=== PATIENT | male | born 1965 | race Caucasian/White ===

== ENCOUNTER 2016-12-21 09:22 | Emergency (ER) | payer MEDICAID ==
[2016-12-21 10:20] LABS: BASOPHILS 0.5 % (0-2); EOSINOPHILS 1.2 % (0-7); HEMATOCRIT 42.8 % (42.0-54.0); IMMATURE GRANULOCYTES 0.3 % (0-5); LYMPHOCYTES 28.8 % (15-50); MCH 33.3 pg (26.0-34.0); MCV 95.1 fL (80.0-100.0); MEAN PLATELET VOLUME 9.4 fL (7.4-10.4); MONOCYTES 8.6 % (2-11); NEUTROPHILS 60.6 % (40-80); PLATELET COUNT 205 10x3/uL (130-400); RDW 14.5 % (11.5-14.5); WBC 6.1 10x3/uL (4.8-10.8)
[2016-12-21 10:23] LABS: APPEARANCE CLEAR (CLEAR); BILIRUBIN NEGATIVE (NEGATIVE); COLOR DK YELLOW (YELLOW); GLUCOSE NEGATIVE (NEGATIVE); KETONE NEGATIVE (NEGATIVE); LEUKOCYTE ESTERASE NEGATIVE (NEGATIVE); NITRITE NEGATIVE (NEGATIVE); PROTEIN NEGATIVE (NEGATIVE); SPECIFIC GRAVITY 1.015 (1.005-1.020); UROBILINOGEN NORMAL (NORMAL)
[2016-12-21 10:35] LABS: ALBUMIN 3.3 g/dL (3.4-5.0); ALKALINE PHOSPHATASE 118 U/L (46-116); ALT (SGPT) 26 U/L (10-68); AMYLASE - SERUM 53 U/L (25-115); CALC OSMOLALITY 276 mosm/kg (275-300); CALCIUM 8.2 mg/dL (8.5-10.1); CARBON DIOXIDE 23.4 mmol/L (21.0-32.0); CHLORIDE - SERUM 105 mmol/L (98-107); GLUCOSE 84 mg/dL (74-106); LIPASE 157 U/L (73-393); POTASSIUM - SERUM 4.1 mmol/L (3.5-5.1); PROTEIN - SERUM 6.8 g/dL (6.4-8.2); SODIUM 139 mmol/L (136-145); UREA NITROGEN 13 mg/dL (7-18); eGFR NON AFRICAN AMERICAN 84 mL/min (90-120)
== END 2016-12-21 14:09 | disposition home or self-care (01) ==
LOC: D.ER 09:22
PROVIDERS: Family Medicine
DX: K57.92 Diverticulitis of intestine, part unspecified, without perforation or abscess without bleeding (principal); F17.200 Nicotine dependence, unspecified, uncomplicated

== ENCOUNTER → 2017-03-04 08:11 | Outpatient (CLI) | payer MEDICAID | END | disposition home or self-care (01) | LOC: D.US 08:00 | DX: R10.11 Right upper quadrant pain (principal); R10.13 Epigastric pain ==

== ENCOUNTER 2017-04-21 09:45 | Emergency (ER) | payer MEDICAID ==
[2017-04-21 10:32] LABS: APPEARANCE CLEAR (CLEAR); BILIRUBIN NEGATIVE (NEGATIVE); COLOR YELLOW (YELLOW); GLUCOSE NEGATIVE (NEGATIVE); KETONE NEGATIVE (NEGATIVE); NITRITE NEGATIVE (NEGATIVE); PROTEIN NEGATIVE (NEGATIVE); UROBILINOGEN NORMAL (NORMAL)
[2017-04-21 10:47] LABS: BASOPHILS 0.2 % (0-2); EOSINOPHILS 3.9 % (0-7); HEMATOCRIT 43.2 % (42.0-54.0); HEMOGLOBIN 14.8 g/dL (13.5-17.5); IMMATURE GRANULOCYTES 0.4 % (0-5); LYMPHOCYTES 43.4 % (15-50); MCHC 34.3 g/dL (31.0-37.0); MCV 99.3 fL (80.0-100.0); MONOCYTES 8.6 % (2-11); NEUTROPHILS 43.5 % (40-80); PLATELET COUNT 175 10x3/uL (130-400); RBC 4.35 10x6/uL (4.20-6.10); RDW 13.5 % (11.5-14.5); WBC 4.9 10x3/uL (4.8-10.8)
[2017-04-21 10:51] LABS: ALBUMIN 3.5 g/dL (3.4-5.0); ALKALINE PHOSPHATASE 112 U/L (46-116); ALT (SGPT) 34 U/L (10-68); BILIRUBIN - TOTAL 0.18 mg/dL (0.2-1.3); CALC OSMOLALITY 283 mosm/kg (275-300); CALCIUM 8.6 mg/dL (8.5-10.1); CARBON DIOXIDE 22.1 mmol/L (21.0-32.0); CHLORIDE - SERUM 108 mmol/L (98-107); CREATININE - SERUM 1.1 mg/dL (0.6-1.3); GLUCOSE 107 mg/dL (74-106); LIPASE 183 U/L (73-393); PROTEIN - SERUM 7.2 g/dL (6.4-8.2); SODIUM 143 mmol/L (136-145); UREA NITROGEN 11 mg/dL (7-18); eGFR NON AFRICAN AMERICAN 75 mL/min (90-120)
== END 2017-04-21 16:05 | disposition home or self-care (01) ==
LOC: D.ER 09:45
PROVIDERS: Emergency Medicine
DX: R10.9 Unspecified abdominal pain (principal)

== ENCOUNTER → 2017-06-23 08:09 | Outpatient (CLI) | payer MEDICAID | END | disposition home or self-care (01) | LOC: D.RT 08:09 | DX: R06.02 Shortness of breath (principal) ==

== ENCOUNTER → 2017-11-07 18:54 | Outpatient (CLI) | payer MEDICAID ==
[~2017-11-07 18:54] MED LIST: ANORO ELLIPTA1 EACH INH; NORCO 7.5/325 T1 TA1 PO
== END | disposition home or self-care (01) ==
LOC: D.LABREF 18:54
DX: M17.11 Unilateral primary osteoarthritis, right knee (principal); Z11.8 Encounter for screening for other infectious and parasitic diseases

== ENCOUNTER → 2017-11-08 15:55 | Outpatient (CLI) | payer MEDICAID | END | disposition home or self-care (01) | LOC: D.MRI 15:55 | DX: S83.222A Peripheral tear of medial meniscus, current injury, left knee, initial encounter (principal) ==

== ENCOUNTER → 2017-11-15 16:48 | Outpatient (CLI) | payer MEDICAID ==
[2017-11-15 17:17] LABS: BASOPHILS 0.1 % (0-2); EOSINOPHILS 0.8 % (0-7); HEMATOCRIT 41.3 % (42.0-54.0); HEMOGLOBIN 14.7 g/dL (13.5-17.5); IMMATURE GRANULOCYTES 0.5 % (0-5); LYMPHOCYTES 25.1 % (15-50); MCH 35.8 pg (26.0-34.0); MCHC 35.6 g/dL (31.0-37.0); MCV 100.5 fL (80.0-100.0); MEAN PLATELET VOLUME 9.7 fL (7.4-10.4); MONOCYTES 8.1 % (2-11); NEUTROPHILS 65.4 % (40-80); PLATELET COUNT 180 10x3/uL (130-400); RBC 4.11 10x6/uL (4.20-6.10); RDW 14.1 % (11.5-14.5); WBC 9.5 10x3/uL (4.8-10.8)
[2017-11-15 19:17] LABS: ERYTHROCYTE SEDIMENTATION RATE 9 mm/hr (0-20)
== END | disposition home or self-care (01) ==
LOC: D.LAB 16:48
PROVIDERS: Orthopaedic Surgery
DX: M25.561 Pain in right knee (principal); R22.41 Localized swelling, mass and lump, right lower limb

== ENCOUNTER 2018-01-11 10:00 | Inpatient (IN) | payer MEDICAID ==
[~2018-01-11] VITALS: Ht 180.3 cm; Wt 97.7 kg
[2018-01-11 11:27] LABS: BASOPHILS 0.5 % (0-2); EOSINOPHILS 0.5 % (0-7); HEMOGLOBIN 15.2 g/dL (13.5-17.5); IMMATURE GRANULOCYTES 0.2 % (0-5); MCH 36.5 pg (26.0-34.0); MCHC 35.3 g/dL (31.0-37.0); MCV 103.1 fL (80.0-100.0); MEAN PLATELET VOLUME 9.6 fL (7.4-10.4); MONOCYTES 8.7 % (2-11); NEUTROPHILS 54.1 % (40-80); PLATELET COUNT 204 10x3/uL (130-400); RBC 4.17 10x6/uL (4.20-6.10); RDW 14.9 % (11.5-14.5); WBC 5.5 10x3/uL (4.8-10.8)
[2018-01-11 11:31] LABS: APPEARANCE CLEAR (CLEAR); COLOR DK YELLOW (YELLOW)
[2018-01-11 11:32] LABS: BILIRUBIN NEGATIVE (NEGATIVE); GLUCOSE NEGATIVE (NEGATIVE); KETONE NEGATIVE (NEGATIVE); NITRITE NEGATIVE (NEGATIVE); PROTEIN NEGATIVE (NEGATIVE); UROBILINOGEN NORMAL (NORMAL)
[2018-01-11 11:40] LABS: APTT 40.7 SECONDS (22.8-39.4); INR 1.19 (0.85-1.17); PROTIME 14.7 SECONDS (11.6-15.0)
[2018-01-11 11:50] LABS: ANION GAP 11.8 mmol/L (8-16); CARBON DIOXIDE 27.8 mmol/L (21.0-32.0); CREATININE - SERUM 1.2 mg/dL (0.6-1.3); POTASSIUM - SERUM 3.6 mmol/L (3.5-5.1)
[2018-01-18 06:45] VITALS: BP 151/100
[2018-01-18 07:05] VITALS: BP 151/100
[2018-01-18 17:15] VITALS: BP 130/82
[2018-01-18 18:38] LABS: BASOPHILS 0.1 % (0-2); EOSINOPHILS 0 % (0-7); HEMATOCRIT 39.7 % (42.0-54.0); HEMOGLOBIN 13.6 g/dL (13.5-17.5); IMMATURE GRANULOCYTES 0.4 % (0-5); MCH 36.3 pg (26.0-34.0); MCHC 34.3 g/dL (31.0-37.0); MCV 105.9 fL (80.0-100.0); MONOCYTES 2.2 % (2-11); NEUTROPHILS 93.3 % (40-80); RBC 3.75 10x6/uL (4.20-6.10); RDW 15.1 % (11.5-14.5); WBC 9.9 10x3/uL (4.8-10.8)
[2018-01-18 18:53] LABS: ANION GAP 11.3 mmol/L (8-16); CREATININE - SERUM 1.4 mg/dL (0.6-1.3); POTASSIUM - SERUM 4.3 mmol/L (3.5-5.1)
[2018-01-18 19:12] LABS: PLATELET COUNT 144 10x3/uL (130-400)
[2018-01-18 19:50] VITALS: BP 114/73; Ht 180.3 cm; Wt 97.7 kg
[2018-01-18 22:51] VITALS: BP 121/77
[2018-01-19 06:18] VITALS: BP 124/83
[2018-01-19 08:00] VITALS: BP 123/66
[2018-01-19 12:00] VITALS: BP 131/75
[2018-01-19 21:45] VITALS: BP 130/70
[2018-01-20 05:09] VITALS: BP 141/81
[2018-01-20 08:14] VITALS: BP 140/86
[2018-01-20 11:56] VITALS: BP 144/80
[2018-01-20 20:00] VITALS: BP 114/74
[2018-01-21 04:00] VITALS: BP 114/62
[2018-01-21 09:25] VITALS: BP 124/58
[2018-01-21] MEDS ORDERED: ASPIRIN325 MG PO (09:35)
== END 2018-01-21 19:03 | disposition home health service (06) | DRG 470 ==
LOC: D.MS 01-18 05:00 → D.SDCHOLD 01-18 05:00 → D.MS 01-18 16:53
PROVIDERS: Orthopaedic Surgery
PROC: 0QPG04Z Removal of Internal Fixation Device from Right Tibia, Open Approach (ICD-10-PCS; 2018-01-18)
PROC: 0SRC0J9 Replacement of Right Knee Joint with Synthetic Substitute, Cemented, Open Approach (ICD-10-PCS; principal; 2018-01-18 12:30)
DX: M17.11 Unilateral primary osteoarthritis, right knee (principal); J44.9 Chronic obstructive pulmonary disease, unspecified; M71.22 Synovial cyst of popliteal space [Baker], left knee; S83.242A Other tear of medial meniscus, current injury, left knee, initial encounter; F17.200 Nicotine dependence, unspecified, uncomplicated

== ENCOUNTER → 2018-01-28 15:33 | Outpatient (CLI) | payer MEDICAID ==
[~2018-01-28 15:33] MED LIST changes: +ASPIRIN325 MG PO
[2018-01-28 16:21] LABS: APPEARANCE CLEAR (CLEAR); COLOR DK YELLOW (YELLOW)
[2018-01-28 16:22] LABS: BILIRUBIN NEGATIVE (NEGATIVE); GLUCOSE NEGATIVE (NEGATIVE); KETONE NEGATIVE (NEGATIVE); NITRITE NEGATIVE (NEGATIVE); PROTEIN NEGATIVE (NEGATIVE); SPECIFIC GRAVITY 1.025 (1.005-1.020); UROBILINOGEN NORMAL (NORMAL)
== END | disposition home or self-care (01) ==
LOC: D.LABREF 15:33
PROVIDERS: Orthopaedic Surgery
DX: N39.0 Urinary tract infection, site not specified (principal); Z47.1 Aftercare following joint replacement surgery; R33.9 Retention of urine, unspecified; J44.9 Chronic obstructive pulmonary disease, unspecified

== ENCOUNTER 2018-04-27 09:00 | Inpatient (IN) | payer MEDICAID ==
[~2018-04-27] VITALS: Ht 180.3 cm; Wt 87.6 kg
[2018-04-27] VITALS (10 sets, daily range): BP systolic 118–145; BP diastolic 73–97; BMI 27.0
[2018-04-27 10:21] LABS: APTT 29.6 SECONDS (22.8-39.4); INR 0.91 (0.85-1.17); PROTIME 11.7 SECONDS (11.6-15.0)
[2018-04-27 10:25] LABS: HEMATOCRIT 43.7 % (42.0-54.0); HEMOGLOBIN 15.4 g/dL (13.5-17.5); LYMPHOCYTES 9.7 % (15-50); MCH 35.8 pg (26.0-34.0); MCHC 35.2 g/dL (31.0-37.0); MCV 101.6 fL (80.0-100.0); NEUTROPHILS 83.8 % (40-80); RDW 18.2 % (11.5-14.5); WBC 5.1 10x3/uL (4.8-10.8)
[2018-04-27 10:26] LABS: ALKALINE PHOSPHATASE 148 U/L (46-116); ALT (SGPT) 40 U/L (10-68); AMYLASE - SERUM 48 U/L (25-115); BILIRUBIN - DIRECT 0.12 mg/dL (0.00-0.30); BILIRUBIN - INDIRECT 0.31 mg/dL (0.00-1.00); BILIRUBIN - TOTAL 0.43 mg/dL (0.2-1.3); CALC OSMOLALITY 273 mosm/kg (275-300); CALCIUM 9.3 mg/dL (8.5-10.1); CARBON DIOXIDE 24.5 mmol/L (21.0-32.0); CHLORIDE - SERUM 101 mmol/L (98-107); CREATININE - SERUM 0.9 mg/dL (0.6-1.3); GLUCOSE 107 mg/dL (74-106); LIPASE 134 U/L (73-393); PROTEIN - SERUM 7.3 g/dL (6.4-8.2); SODIUM 138 mmol/L (136-145); TROPONIN-I < 0.017 ng/mL (0.000-0.060); UREA NITROGEN 7 mg/dL (7-18); eGFR NON AFRICAN AMERICAN > 90 mL/min (90-120)
[2018-04-27 10:27] LABS: PLATELET COUNT 84 10x3/uL (130-400); POTASSIUM - SERUM 2.8 mmol/L (3.5-5.1)
[2018-04-27 10:41] LABS: PLATELET ESTIMATE DECREASED
[2018-04-27 11:05] LABS: APPEARANCE HAZY (CLEAR); BILIRUBIN NEGATIVE (NEGATIVE); COLOR YELLOW (YELLOW); GLUCOSE NEGATIVE (NEGATIVE); KETONE NEGATIVE (NEGATIVE); NITRITE NEGATIVE (NEGATIVE); PROTEIN NEGATIVE (NEGATIVE); SPECIFIC GRAVITY 1.015 (1.005-1.020); UROBILINOGEN NORMAL (NORMAL)
--- NOTE | 2018-04-27 13:00 | MORECARE ---
CASE MANAGEMENT DISCHARGE SUMMARY PATIENT: BEBETO LINN UNIT: [id number] ADM DATE: 04/27/18 AGE: 52 : 69 SEX: M ROOM/BED: D.E07 AUTHOR: SANDRADOC PHYSICIAN: REFERRING PHYSICIAN: MANNY SUAZO MD DATE OF SERVICE: 04/27/18 Discharge Plan Patient Name: BEBETO LINN Facility: [facility]:[place] : 1965 Planned Disposition: Anticipated Discharge Date: 05/01/18 Discharge Date: Expected LOS: 4 Initial Reviewer: [email or web address] Initial Review Date: 04/27/2018 Generated: 04/27/18 2:00 pm DCP- Discharge Planning Updated by [email or web address]: Rhiannon Krishnamurthy on 04/27/18 12:[address] Patient Name: BEBETO LINN Admission Status: ER Accout number: [id number] Admission Date: 04-27-2018 : 1965 Admission Diagnosis: Attending: MANNY SUAZO Current LOS: 1 Anticipated DC Date: 05-01-2018 Planned Disposition: Primary Insurance: MEDICAID [place] Discharge Planning Comments: CM met with patient to complete initial dc planning assessment. CM educated patient on the CM role and verbal consent given by patient to complete assessment. Patient lives at home alone. He reports he is independent in his ADL's and his IADL's.. At discharge patient plans to return home if able and feels this is a safe discharge. CM discussed availability of home health, rehab services, and medical equipment. Patient denied known discharge needs at this time. CM will continue to follow and will assist as needed with dc plans/needs. Prosthetic Lab Technician: Rhiannon Krishnamurthy RN, CCM Appended by Rhiannon Krishnamurthy on 04/27/2018 13:00 NATIONAL PARK RANGER: Patient also reports he drinks 1 pint of whisky a day since February. He stated his last drink was last night at 1930. He reports he is going to stop drinking. DCPIA - Discharge Planning Initial Assessment Updated by [email or web address]: Rhiannon Krishnamurthy on 04/27/18 12:56 pm * Is the patient Alert and Oriented? Yes * PCP Dr. Aleman * Pharmacy [facility] on [address] * Preadmission Environment Home Alone * ADLs Independent * Equipment Oxygen * List name and contact numbers for known caregivers / representatives who currently or will assist patient after discharge: Ross Lynn - [place] - [phone] * Verbal permission to speak to the caregivers and representatives has been obtained from the patient. Yes * Community resources currently utilized None * Additional services required to return to the preadmission environment? No * Can the patient safely return to the preadmission environment? Yes * Has this patient been hospitalized within the prior 30 days at any hospital? No Patient Name: BEBETO LINN Page [id number] at 1300 All edits/amendments must be made on the electronic document DICTATION DATE: 04/27/18 1300 CAR DESIGNER: JAYSON 04/27/18 1300 RPT#: [id number] DC DATE: STATUS: ADM IN [facility] [address] [place] [address] END OF REPORT
--- NOTE | 2018-04-27 14:55 | NUR ---
PT ADMITTED TO ICU AT 1434. PATIENT ATTACHED TO CARDIAC ICU MONITORING. HE CAME VIA WHEELCHAIR AND WAS ACCOMPANIED BY ER STAFF. CHART REVIEWED. VSS, WILL MONITOR CLOSEY
--- NOTE | 2018-04-27 16:00 | NUR ---
PT BEDSIDE COMMODE EMPTIED AND DOCUMENTED IN I&O FLOWSHEET. VSS, WILL CONTINUE TO MONITOR CLOSELY
--- NOTE | 2018-04-27 18:35 | NUR ---
PT GIVEN ICE CHIPS PER REQUEST. STILL C/O OF ABDOMINAL PAIN. REINSTRUCTED ON HOW TO USE CARDIOVASCULAR SURGICAL TECH PUMP. PT RETURNED DEMONSTRATION. VSS, WILL CONTINUE TO MONITOR CLOSELY.
--- NOTE | 2018-04-27 19:00 | NUR ---
REPORT REC'D, ASSUMED PT'S CARE. ASSESSMENT COMPLETED. SEE FLOWSHEETS FOR ALL FINDINGS. PT A/O X4, C/O PAIN TO ABD 10/10 ON SCALE. MORGUE LIBRARIAN PUMP ON HAND. PT VERBALIZED JUST USED. ST ON CM WITH HR AT 110BMP. B/L PIV INTACT,CLEAN AND DRY INFUSING IV FLUIDS PER ORDER VIA PUMP. PPP. PT REPOSITIONED SELF FOR COMFORT. CALL LIGHT IN REACH. WILL CONT TO MONITOR.
--- NOTE | 2018-04-27 21:00 | NUR ---
PT C/O NAUSEA. ZOFRAN IVP GIVEN PER ORDER. REPOSIIONED SELF IN BED FOR COMFORT. WILL CONT TO MONITOR.
--- NOTE | 2018-04-27 23:00 | NUR ---
REASSESSMENT COMPLETED PER FLOWSHEETS. PT CONT TO C/O ABD PAIN 5/10, BROODMARE FOREMAN PUSH ON USE. VSS. CALL LIGHT IN REACH. CPOC.
[2018-04-28] VITALS (13 sets, daily range): BP systolic 101–135; BP diastolic 61–90; Ht 180.3 cm; Wt 87.6 kg
[2018-04-28 02:33] LABS: BASOPHILS 0.1 % (0-2); EOSINOPHILS 0 % (0-7); HEMATOCRIT 40.2 % (42.0-54.0); HEMOGLOBIN 13.7 g/dL (13.5-17.5); IMMATURE GRANULOCYTES 0.2 % (0-5); LYMPHOCYTES 8.8 % (15-50); MCH 35.6 pg (26.0-34.0); MCHC 34.1 g/dL (31.0-37.0); MONOCYTES 6.3 % (2-11); NEUTROPHILS 84.6 % (40-80); PLATELET COUNT 97 10x3/uL (130-400); RBC 3.85 10x6/uL (4.20-6.10); RDW 18.1 % (11.5-14.5)
[2018-04-28 02:47] LABS: MCV 104.4 fL (80.0-100.0); WBC 12.5 10x3/uL (4.8-10.8)
[2018-04-28 02:54] LABS: ALBUMIN 2.4 g/dL (3.4-5.0); ALKALINE PHOSPHATASE 105 U/L (46-116); BILIRUBIN - TOTAL 0.73 mg/dL (0.2-1.3); CALCIUM 7.7 mg/dL (8.5-10.1); CARBON DIOXIDE 24.5 mmol/L (21.0-32.0); CHLORIDE - SERUM 100 mmol/L (98-107); GLUCOSE 80 mg/dL (74-106); SODIUM 135 mmol/L (136-145); eGFR NON AFRICAN AMERICAN 84 mL/min (90-120)
[2018-04-28 02:57] LABS: ALT (SGPT) 28 U/L (10-68); CALC OSMOLALITY 265 mosm/kg (275-300); POTASSIUM - SERUM 4.4 mmol/L (3.5-5.1); UREA NITROGEN 5 mg/dL (7-18)
--- NOTE | 2018-04-28 11:53 | NUR ---
PT RECIEVED TO FLOOR. PT AAO X3 TO PERSON, PLACE, AND TIME. DENIES NEEDS AT THIS TIME. NOSIGNS OF DISTRESS NOTED.
--- NOTE | 2018-04-28 14:19 | NUR ---
REPORT CALLED TO FLOOR NURSE.
--- NOTE | 2018-04-28 19:15 | NUR ---
RECEIVED CARE FROM DAY NURSE. LYING IN BED ON SIDE. REPORTS NO NEEDS AT THIS TIME. IV INFUSING TO RIGHT AC. CALL LIGHT AT SIDE.
--- NOTE | 2018-04-28 20:59 | NUR ---
SATING 78% ON ROOM AIR. PT PLACED ON 2L O2. SATS CHIGN 86%. UPON QUESTIONING PT REPORTS HE HAS COPD AND USES 3L O2 AT NIGHT WHEN HE IS HOME. O2 RAISED TO 3L AND SATS CHING TO 90%. WILL CONTINUE TO MONITOR.
--- NOTE | 2018-04-29 00:24 | NUR ---
IV IN RIGHT AC AND LEFT FA LEAKING AT INSERTION SITE. DC'D WITH TIP INTACT. RESITED TO RIGHT FA. 22 GAUGE X2 STICKS WITH GOOD BLOOD RETURN NOTED.
[2018-04-29 00:29] VITALS: BP 112/70
--- NOTE | 2018-04-29 03:06 | NUR ---
DISCONNECTED TO AMBULATE
[2018-04-29 05:26] VITALS: BP 97/62
[2018-04-29 06:45] LABS: BASOPHILS 0.1 % (0-2); EOSINOPHILS 0.1 % (0-7); HEMATOCRIT 36.7 % (42.0-54.0); HEMOGLOBIN 12.4 g/dL (13.5-17.5); IMMATURE GRANULOCYTES 0.7 % (0-5); LYMPHOCYTES 5.7 % (15-50); MCH 34.8 pg (26.0-34.0); MCHC 33.8 g/dL (31.0-37.0); MCV 103.1 fL (80.0-100.0); MEAN PLATELET VOLUME 11.5 fL (7.4-10.4); MONOCYTES 3.8 % (2-11); NEUTROPHILS 89.6 % (40-80); PLATELET COUNT 110 10x3/uL (130-400); RBC 3.56 10x6/uL (4.20-6.10); RDW 17.7 % (11.5-14.5); WBC 11.7 10x3/uL (4.8-10.8)
[2018-04-29 07:10] LABS: CALCIUM 7.6 mg/dL (8.5-10.1); CARBON DIOXIDE 25.3 mmol/L (21.0-32.0); CHLORIDE - SERUM 99 mmol/L (98-107); CREATININE - SERUM 0.8 mg/dL (0.6-1.3); POTASSIUM - SERUM 3.8 mmol/L (3.5-5.1); SODIUM 134 mmol/L (136-145); eGFR NON AFRICAN AMERICAN > 90 mL/min (90-120)
[2018-04-29 07:11] LABS: CALC OSMOLALITY 264 mosm/kg (275-300); GLUCOSE 61 mg/dL (74-106); UREA NITROGEN 10 mg/dL (7-18)
--- NOTE | 2018-04-29 07:45 | NUR ---
PATIENT IN BED WITH IV INTACT. NO COMPLAINTS OR SIGNS OF DISTRESS. CALL LIGHT WITHIN REACH.
[2018-04-29 09:09] VITALS: BP 106/73
--- NOTE | 2018-04-29 09:41 | NUR ---
PT LAYING IN BED RESETING THIS AM. RESPIRATIONS EVEN AND UNLABORED, NO S/S OF DISTRESS NOTED. PT WAITING FOR DOCTOR, STATES THAT HE WISHES TO GO HOME. INFORMED PT THAT HE WOULD HAVE TO SPEAK WITH THE DOCTOR. DENIES NEEDS AT THIS TIME. BED LOW AND LOCKED, SR UP X2, CL IN EASY REACH.
--- NOTE | 2018-04-29 12:47 | NUR ---
CALLED INTO ROOM BY PT, STATED THAT HE HAD SOME QUESTIONS REGARDING WHAT KIND OF FOOD HE WAS ALLOWED TO EAT. REFERRED TO DR. SUAZO'S ORDER OF CLEAR LIQUID DIET. PT GOT ANGRY AND STARTED YELLING SAYING HE WAS GOING HOME IF HE COULDN'T GET ANY "REAL FOOD". DR. SUAZO CALLED AND INFORMED OF THIS, DR. SUAZO STATED THAT HE CAN HAVE CLEAR LIQUIDS AND IF HE TOLERATES THE CLEAR LIQUIDS HE WILL ADVANCE HIS DIET AND SEND HIM HOME. PT VERBALIZES UNDERSTANDING. UNHOOKED FROM IV AND ALLOWED TO WALK AROUND FLOOR FOR A BIT PER REQUEST. CL IN EASY REACH.
[2018-04-29 13:15] VITALS: BP 148/61
--- NOTE | 2018-04-29 14:43 | NUR ---
PT TOLERATED LUNCH WELL, NO NAUSEA OR VOMITING NOTED OR REPORTED. WILL ADVANCE DIET TOLERATED ORDERED BY DR. SUAZO. CL IN EASY REACH, DENIES FURTHER NEEDS.
[2018-04-29 20:53] VITALS: BP 114/68
[2018-04-30 00:50] VITALS: BP 118/71
[2018-04-30 05:02] VITALS: BP 111/69
[2018-04-30 07:33] LABS: BASOPHILS 0.1 % (0-2); EOSINOPHILS 0 % (0-7); HEMATOCRIT 33.4 % (42.0-54.0); HEMOGLOBIN 11.7 g/dL (13.5-17.5); IMMATURE GRANULOCYTES 0.3 % (0-5); LYMPHOCYTES 3.6 % (15-50); MCH 35.3 pg (26.0-34.0); MONOCYTES 7.4 % (2-11); NEUTROPHILS 88.6 % (40-80); RBC 3.31 10x6/uL (4.20-6.10); RDW 17.6 % (11.5-14.5); WBC 12.4 10x3/uL (4.8-10.8)
[2018-04-30 07:36] LABS: MCV 100.9 fL (80.0-100.0); PLATELET COUNT 135 10x3/uL (130-400)
[2018-04-30 07:47] LABS: CALC OSMOLALITY 264 mosm/kg (275-300); CALCIUM 7.5 mg/dL (8.5-10.1); CARBON DIOXIDE 24.8 mmol/L (21.0-32.0); CHLORIDE - SERUM 99 mmol/L (98-107); CREATININE - SERUM 0.9 mg/dL (0.6-1.3); POTASSIUM - SERUM 3.3 mmol/L (3.5-5.1); SODIUM 133 mmol/L (136-145); UREA NITROGEN 10 mg/dL (7-18); eGFR NON AFRICAN AMERICAN > 90 mL/min (90-120)
[2018-04-30 07:51] LABS: GLUCOSE 97 mg/dL (74-106)
[2018-04-30 08:00] VITALS: BP 109/79
--- NOTE | 2018-04-30 08:21 | NUR ---
PT SITTING UP IN BED HOLDING HIS OPERATOR LIGHTS BUTTON THIS AM. PT WAS NOT CONNECTED TO THE IV SO IT WASN'T DOING ANY GOOD. FLUSHED IV, LEAKING AND INFILTRATION NOTED. IV REMOVED TIP INTACT. PT NOT HAPPY THAT IT HAS TO BE RESITED BUT EXPLAINED THAT THIS WAS HOW HE WAS GETTING HIS PAIN MEDICATION. VOICED THAT HE WISHED TO WALK AROUND BEFORE I RESITED HIS IV. PT ALLOWED TO WALK AROUND UNIT. DENIES FURTHER NEEDS. BED LOW AND LOCKED, SR UP X2, CL IN EASY REACH. WILL CONTINUE TO MONITOR THROUGHOUT THE DAY.
--- NOTE | 2018-04-30 10:03 | NUR ---
PATIENT IV RESTARTED IN RIGHT WRIST X 1 STICK. 22G. PATIENT TOLERATED WITH SMALL AMOUNT OF PAIN. IVF RESTARTED. NOTIFIED MUCKER OPERATOR PATIENT WANTS FREIGHT FORWARDER RESTARTED.
[2018-04-30 12:00] VITALS: BP 137/68
--- NOTE | 2018-04-30 12:13 | NUR ---
PT REPORTS THAT HE IS NOT FEELING WELL AT ALL, TEMPERATURE TAKEN CAME BACK AT 102.2. DR. SUAZO CALLED AND INFORMED, STATED THAT HE WOULD GET HIM SOMETHING ORDERED. CL IN EASY REACH.
--- NOTE | 2018-04-30 17:00 | NUR ---
PT LAYING IN BED RESTING WITH EYES OPEN. HAD AN EPISODE OF PAIN TO HIS ABDOMEN. NORCO 10 GIVEN PER EMAR ORDER TO HELP WITH THIS. PT WAS ALSO RUNNING A 102.2 TYLENOL GIVEN PER EMAR ORDER TO HELP. PT VOICES THAT HE FEELS A LOT BETTER THEN THIS AM. DENIES FURTHER NEEDS. CL IN EASY REACH.
--- NOTE | 2018-04-30 17:40 | NUR ---
NORCO AND DILAUDID EFFECTIVE PRN FOR QABDOMINAL PAIN. BS NOTED X4. TEMP DOWN TO 99.2. ENCOURAGED TO USE CALL LIGHT FOR ASSIST.
[2018-04-30 21:02] VITALS: BP 113/83
[2018-05-01 00:43] VITALS: BP 111/72
[2018-05-01 05:00] VITALS: BP 123/73
[2018-05-01 05:43] LABS: BASOPHILS 0.2 % (0-2); EOSINOPHILS 0.5 % (0-7); HEMATOCRIT 34.1 % (42.0-54.0); IMMATURE GRANULOCYTES 0.4 % (0-5); LYMPHOCYTES 6.4 % (15-50); MCH 35.1 pg (26.0-34.0); MCHC 35.2 g/dL (31.0-37.0); MCV 99.7 fL (80.0-100.0); MEAN PLATELET VOLUME 11.5 fL (7.4-10.4); MONOCYTES 8.8 % (2-11); NEUTROPHILS 83.7 % (40-80); RBC 3.42 10x6/uL (4.20-6.10); RDW 17.6 % (11.5-14.5); WBC 10.6 10x3/uL (4.8-10.8)
[2018-05-01 05:50] LABS: CALC OSMOLALITY 268 mosm/kg (275-300); CALCIUM 7.7 mg/dL (8.5-10.1); CARBON DIOXIDE 29.3 mmol/L (21.0-32.0); CHLORIDE - SERUM 101 mmol/L (98-107); CREATININE - SERUM 0.8 mg/dL (0.6-1.3); GLUCOSE 81 mg/dL (74-106); SODIUM 136 mmol/L (136-145); UREA NITROGEN 8 mg/dL (7-18); eGFR NON AFRICAN AMERICAN > 90 mL/min (90-120)
[2018-05-01 05:54] LABS: PLATELET COUNT 165 10x3/uL (130-400)
[2018-05-01 06:04] LABS: POTASSIUM - SERUM 2.9 mmol/L (3.5-5.1)
--- NOTE | 2018-05-01 07:14 | NUR ---
REC'D IN SITTING ON SIDE OF BED. RESP EVEN AND UNLABORED WITH NO DISTRESS NOTED. CAN EXPRESS NEEDS AND WANTS. NO C/O NOTED OR VOICED. ASSESSMENT COMPLETD. REFUSED SCD. PT UP AB DMITRY WITH STEADY GAIT. C/L IN REACH AT BEDSIDE.
[2018-05-01 08:09] VITALS: BP 140/84
--- NOTE | 2018-05-01 11:56 | NUR ---
LYING IN BED,WITHOUT SIGNS OF DISTRESS
[2018-05-01 12:09] VITALS: BP 138/80
--- NOTE | 2018-05-01 13:12 | NUR ---
PT WAS MEDICATED WITH NORCO PER ORDERS FOR C/O TESTICLE PAIN RATING 7/10 ON PAIN SCALE. C/L IN REACH AT BEDSIDE.
--- NOTE | 2018-05-01 13:43 | NUR ---
NUTRTITION F/U DIET NOW CLEAR LIQUID, WILL PROVIDE ADVANCED DIET WHEN ORDERED, MONITOR PO INTAKE. RD FOLLOWING
--- NOTE | 2018-05-01 15:51 | NUR ---
OFF FLOOR AT THIS TIME FOR PROCEDURE IN STABLE CONDITION.
[2018-05-01 15:56] LABS: INR 1.01 (0.85-1.17); PROTIME 12.8 SECONDS (11.6-15.0)
--- NOTE | 2018-05-01 16:29 | NUR ---
ARTUR 18 ON ADMISSION TO 19 TODAY NO SKIN ISSUES
[2018-05-01 20:00] VITALS: BP 159/89
--- NOTE | 2018-05-02 02:48 | NUR ---
EYES CLOSED RESPIRATIONS WITH EASE AND UNLABORED. SR UP X2 CALL LIGHT WITHIN REACH.
[2018-05-02 05:52] VITALS: BP 109/44
--- NOTE | 2018-05-02 07:30 | NUR ---
REC'D IN BED AWAKE AND ALERT. RESP EVEN AND UNLABORED WITH NO DISTRESS NOTED. CAN EXPRESS NEEDS AND WANT. NO C/O NOTED OR VOICED. ASSESSMENT COMPLETED. C/L IN REACH AT BEDSIDE.
[2018-05-02 08:24] VITALS: BP 147/87
[2018-05-02 09:00] LABS: BASOPHILS 0.3 % (0-2); EOSINOPHILS 0.7 % (0-7); HEMOGLOBIN 13.2 g/dL (13.5-17.5); IMMATURE GRANULOCYTES 0.4 % (0-5); LYMPHOCYTES 11.9 % (15-50); MCH 34.9 pg (26.0-34.0); MCHC 35.7 g/dL (31.0-37.0); MCV 97.9 fL (80.0-100.0); MEAN PLATELET VOLUME 11.5 fL (7.4-10.4); MONOCYTES 10.6 % (2-11); NEUTROPHILS 76.1 % (40-80); RBC 3.78 10x6/uL (4.20-6.10); RDW 17.8 % (11.5-14.5); WBC 9.7 10x3/uL (4.8-10.8)
[2018-05-02 09:08] LABS: PLATELET COUNT 230 10x3/uL (130-400)
[2018-05-02 09:11] LABS: CALC OSMOLALITY 267 mosm/kg (275-300); CALCIUM 8.1 mg/dL (8.5-10.1); CHLORIDE - SERUM 99 mmol/L (98-107); CREATININE - SERUM 0.8 mg/dL (0.6-1.3); GLUCOSE 73 mg/dL (74-106); SODIUM 136 mmol/L (136-145); eGFR NON AFRICAN AMERICAN > 90 mL/min (90-120)
[2018-05-02 09:12] LABS: UREA NITROGEN 5 mg/dL (7-18)
--- NOTE | 2018-05-02 10:33 | NUR ---
PT C/O OF ABD PAIN RATING 8/10 ON PAIN SCALE WAS MEDICATED WITH DILAUDID 1 MG PER ORDERS. C/L IN REACH AT BEDSIDE
[2018-05-02 20:00] VITALS: BP 140/95
--- NOTE | 2018-05-03 04:06 | NUR ---
EYES CLOSED RESPIRATIONS WITH EASE AND UNLABORED. SR UP X2 CALL LIGHT WITHIN REACH.
[2018-05-03 05:08] LABS: BASOPHILS 0.7 % (0-2); EOSINOPHILS 1.5 % (0-7); HEMATOCRIT 34.9 % (42.0-54.0); HEMOGLOBIN 12.4 g/dL (13.5-17.5); IMMATURE GRANULOCYTES 0.9 % (0-5); LYMPHOCYTES 23.9 % (15-50); MCH 34.4 pg (26.0-34.0); MCHC 35.5 g/dL (31.0-37.0); MCV 96.9 fL (80.0-100.0); MEAN PLATELET VOLUME 11.1 fL (7.4-10.4); PLATELET COUNT 240 10x3/uL (130-400)
[2018-05-03 05:12] LABS: WBC 5.4 10x3/uL (4.8-10.8)
[2018-05-03 05:26] LABS: CALC OSMOLALITY 271 mosm/kg (275-300); CALCIUM 7.6 mg/dL (8.5-10.1); CARBON DIOXIDE 27.7 mmol/L (21.0-32.0); CHLORIDE - SERUM 102 mmol/L (98-107); CREATININE - SERUM 0.7 mg/dL (0.6-1.3); GLUCOSE 87 mg/dL (74-106); SODIUM 138 mmol/L (136-145); UREA NITROGEN 5 mg/dL (7-18); eGFR NON AFRICAN AMERICAN > 90 mL/min (90-120)
[2018-05-03 05:44] LABS: POTASSIUM - SERUM 2.8 mmol/L (3.5-5.1)
[2018-05-03 06:14] VITALS: BP 142/90
--- NOTE | 2018-05-03 06:28 | NUR ---
PT POTASSIUM 2.8 THIS AM PAGED MACHINE BURRER DOCTOR AWAITING CALL BACK WITH ORDERS.
[2018-05-03 08:12] VITALS: BP 149/91
--- NOTE | 2018-05-03 12:31 | NUR ---
PT RESTING IN BED. NO SIGNS OF DISTRESS. IV TO RIGHT FORARM PATENT NO REDNESS OR TENDERNESS. HAS ANA LAURA DRAIN TO LEFT LOWER QUADRANT. COMPLAINS OF PAIN. MEDICATIONS GIVEN. DENIES ANY OTHER NEED AT THIS TIME. CALL LIGHT IN REACH. BED LOW POSITION. NO FAMILY AT BEDSIDE.
[2018-05-03 12:58] VITALS: BP 127/71
[2018-05-03 16:08] VITALS: BP 128/94
[2018-05-03 19:18] VITALS: BP 152/94
--- NOTE | 2018-05-03 19:45 | NUR ---
PT RESTING IN BED. ALERT AND ORIENTED. NO SIGNS OF DISTRESS. BREATHING EVEN AND UNLABORED. SKIN CLEAN DRY AND INTACT. IV SITE RT FA DRESSING CLEAN DRY AND INTACT. NO SIGNS OF INFECTION. LT LOWER ABD BILARY DRAIN. DRESSING CLEAN DRY AND INTACT. NO LOWER LEG SWELLING PRESENT. WILL CONTINUE PLAN OF CARE. CALL LIGHT IN REACH.
[2018-05-04] VITALS: BP 145/89
[2018-05-04 04:00] VITALS: BP 147/91
--- NOTE | 2018-05-04 06:42 | NUR ---
PT IN BED IN LOW FOWLERS POSITION. ALERT AND ORIENTED X4. RESPIRATIONS EVEN AND UNLABORED. VITAL SIGNS STABLE AND AFEBRILE. NO VISUAL CUES OF DISTRESS NOTE. DENIES ANY OTHER NEEDS AT THIS TIME. BED LOW, SIDE RAILS UP X2. CALL LIGHT IN REACH. WILL CONTINUE TO MONITOR.
[2018-05-04 09:00] VITALS: BP 132/93
[2018-05-04 09:32] LABS: BASOPHILS 0.6 % (0-2); EOSINOPHILS 0.7 % (0-7); HEMATOCRIT 37.1 % (42.0-54.0); HEMOGLOBIN 13.3 g/dL (13.5-17.5); IMMATURE GRANULOCYTES 1.5 % (0-5); LYMPHOCYTES 24.2 % (15-50); MCHC 35.8 g/dL (31.0-37.0); MCV 97.6 fL (80.0-100.0); MEAN PLATELET VOLUME 11.1 fL (7.4-10.4); MONOCYTES 11.7 % (2-11); NEUTROPHILS 61.3 % (40-80); RDW 18.2 % (11.5-14.5)
[2018-05-04 09:42] LABS: ALKALINE PHOSPHATASE 258 U/L (46-116); ALT (SGPT) 40 U/L (10-68); BILIRUBIN - TOTAL 0.69 mg/dL (0.2-1.3); CALC OSMOLALITY 275 mosm/kg (275-300); CARBON DIOXIDE 27.8 mmol/L (21.0-32.0); CHLORIDE - SERUM 102 mmol/L (98-107); CREATININE - SERUM 0.8 mg/dL (0.6-1.3); GLUCOSE 104 mg/dL (74-106); POTASSIUM - SERUM 3.2 mmol/L (3.5-5.1); PROTEIN - SERUM 5.9 g/dL (6.4-8.2); SODIUM 139 mmol/L (136-145); UREA NITROGEN 6 mg/dL (7-18); eGFR NON AFRICAN AMERICAN > 90 mL/min (90-120)
[2018-05-04 09:48] LABS: PLATELET COUNT 294 10x3/uL (130-400); WBC 6.8 10x3/uL (4.8-10.8)
--- NOTE | 2018-05-04 10:55 | NUR ---
NUTRITION F/U REG DIET BUT PO INTAKE POOR PER PT REPORT. CONSTIPATION. NOTE COLACE ADDED TO MED LIST BY MD. WILL CONTINUE TO PROVIDE DIET, MONITOR PT PROGRESS. RD FOLLOWING
[2018-05-04 12:42] VITALS: BP 138/89
[2018-05-04 16:00] VITALS: BP 143/97
[2018-05-04 19:52] VITALS: BP 135/89
[2018-05-05] VITALS: BP 119/84
[2018-05-05 04:00] VITALS: BP 129/90
[2018-05-05 07:53] VITALS: BP 145/87
--- NOTE | 2018-05-05 08:00 | NUR ---
PT RESTING IN BED WITH EYES CLOSED. OPENS SPONTANEOUSLY. NO ACUTE DISTRESS. SALINE LOC TO RIGHT FOREARM NO REDNESS OR EDEMA. DRAIN NOTED TO LEFT ABDOMEN WITH SCANT DRAINAGE PRESENT. REPORTS PAIN 8/10 AT THIS TIME. CL WITHIN REACH.. ENCOURAGED TO CALL WITH NEEDS.
[2018-05-05 12:03] VITALS: BP 130/78
[2018-05-05] MEDS ORDERED: BACTRIM DS PO (13:33)
[2018-05-05] MEDS ORDERED: FLAGYL500 MG PO (13:33)
[2018-05-05] MEDS ORDERED: NORCO-10 PO (13:34)
--- NOTE | 2018-05-05 14:32 | MORECARE ---
CASE MANAGEMENT DISCHARGE SUMMARY PATIENT: BEBETO LINN UNIT: [id number] ADM DATE: 04/27/18 AGE: 52 : 69 SEX: M ROOM/BED: D.2213 AUTHOR: SANDRADOC PHYSICIAN: REFERRING PHYSICIAN: MANNY SUAZO MD DATE OF SERVICE: 05/05/18 Discharge Plan Patient Name: BEBETO LINN Facility: [facility]:[place] : 1965 Planned Disposition: Anticipated Discharge Date: 05/01/18 Discharge Date: Expected LOS: 4 Initial Reviewer: [email or web address] Initial Review Date: 04/27/2018 Generated: 05/05/18 3:32 pm DCP- Discharge Planning Updated by [email or web address]: Rhiannon Krishnamurthy on 04/27/18 12:[address] Patient Name: BEBETO LINN Admission Status: ER Accout number: [id number] Admission Date: 04-27-2018 : 1965 Admission Diagnosis: Attending: MANNY SUAZO Current LOS: 1 Anticipated DC Date: 05-01-2018 Planned Disposition: Primary Insurance: MEDICAID [place] Discharge Planning Comments: CM met with patient to complete initial dc planning assessment. CM educated patient on the CM role and verbal consent given by patient to complete assessment. Patient lives at home alone. He reports he is independent in his ADL's and his IADL's.. At discharge patient plans to return home if able and feels this is a safe discharge. CM discussed availability of home health, rehab services, and medical equipment. Patient denied known discharge needs at this time. CM will continue to follow and will assist as needed with dc plans/needs. Supervisor [place]: Rhiannon Krishnamurthy RN, CCM Appended by Rhiannon Krishnamurthy on 04/27/2018 13:00 FACTORY SUPERINTENDENT: Patient also reports he drinks 1 pint of whisky a day since February. He stated his last drink was last night at 1930. He reports he is going to stop drinking. DCPIA - Discharge Planning Initial Assessment Updated by [email or web address]: Rhiannon Krishnamurthy on 04/27/18 12:56 pm * Is the patient Alert and Oriented? Yes * PCP Dr. Aleman * Pharmacy [facility] on [address] * Preadmission Environment Home Alone * ADLs Independent * Equipment Oxygen * List name and contact numbers for known caregivers / representatives who currently or will assist patient after discharge: Ross Lynn - [place] - [phone] * Verbal permission to speak to the caregivers and representatives has been obtained from the patient. Yes * Community resources currently utilized None * Additional services required to return to the preadmission environment? No * Can the patient safely return to the preadmission environment? Yes * Has this patient been hospitalized within the prior 30 days at any hospital? No Last DP export: 04/27/18 12:00 p Patient Name: BEBETO LINN Page [id number] at 1432 All edits/amendments must be made on the electronic document DICTATION DATE: 05/05/181430 COMPUTER AIDED DESIGN OPERATOR: JAYSON 05/05/181430 RPT#: [id number] DC DATE: STATUS: ADM IN [facility] [address] [place] [address] END OF REPORT
--- NOTE | 2018-05-05 15:05 | NUR ---
PT DISCHARGE INSTRUCTIONS GIVEN WITH SCRIPTS. DISCUSSED SCRIPTS AND FOLLOW UP APPINTMENTS. DENIES QUESTIONS. SALINE LOC FROM RIGHT FOREARM D/C'D, CATH INTACT. PT TAKEN OUT TO PVT VEHICLE FOR DISCHARGE WITH PERSONAL BELONGINGS.
--- NOTE | 2018-05-10 08:04 | MORECARE ---
CASE MANAGEMENT DISCHARGE SUMMARY PATIENT: BEBETO LINN UNIT: [id number] ADM DATE: 04/27/18 AGE: 52 : 69 SEX: M ROOM/BED: D.2213 AUTHOR: PARAMJIT FLORES PHYSICIAN: REFERRING PHYSICIAN: MANNY SUAZO MD DATE OF SERVICE: 05/10/18 Discharge Plan Patient Name: BEBETO LINN Facility: [facility]:[place] : 1965 Planned Disposition: Anticipated Discharge Date: 05/01/18 Discharge Date: 05/05/2018 Expected LOS: 4 Initial Reviewer: [email or web address] Initial Review Date: 04/27/2018 Generated: 05/10/18 9:04 am DCP- Discharge Planning Updated by [email or web address]: Rhiannon Krishnamurthy on 04/27/18 12:[address] Patient Name: BEBETO LINN Admission Status: ER Accout number: [id number] Admission Date: 04-27-2018 : 1965 Admission Diagnosis: Attending: MANNY SUAZO Current LOS: 1 Anticipated DC Date: 05-01-2018 Planned Disposition: Primary Insurance: MEDICAID [place] Discharge Planning Comments: CM met with patient to complete initial dc planning assessment. CM educated patient on the CM role and verbal consent given by patient to complete assessment. Patient lives at home alone. He reports he is independent in his ADL's and his IADL's.. At discharge patient plans to return home if able and feels this is a safe discharge. CM discussed availability of home health, rehab services, and medical equipment. Patient denied known discharge needs at this time. CM will continue to follow and will assist as needed with dc plans/needs. New Order Clerk: Rhiannon Krishnamurthy RN, CCM Appended by Rhiannon Krishnamurthy on 04/27/2018 13:00 CLINICAL SUPPORT NURSE: Patient also reports he drinks 1 pint of whisky a day since February. He stated his last drink was last night at 1930. He reports he is going to stop drinking. DCPIA - Discharge Planning Initial Assessment Updated by [email or web address]: Rhiannon Krishnamurthy on 04/27/18 12:56 pm * Is the patient Alert and Oriented? Yes * PCP Dr. Aleman * Pharmacy [facility] on [address] * Preadmission Environment Home Alone * ADLs Independent * Equipment Oxygen * List name and contact numbers for known caregivers / representatives who currently or will assist patient after discharge: Ross Lynn - [place] - [phone] * Verbal permission to speak to the caregivers and representatives has been obtained from the patient. Yes * Community resources currently utilized None * Additional services required to return to the preadmission environment? No * Can the patient safely return to the preadmission environment? Yes * Has this patient been hospitalized within the prior 30 days at any hospital? No Last DP export: 05/05/18 1:32 p Patient Name: BEBETO LINN Page [phone] at 0804 All edits/amendments must be made on the electronic document DICTATION DATE: 05/10/18803 CORE EXTRUDER: JAYSON 05/10/18803 RPT#: [id number] DC DATE:05/05/18 STATUS: DIS IN [facility] [address] [place] [address] END OF REPORT
--- NOTE | 2018-05-11 10:44 | DS ---
PATIENT:BEBETO LINN :[birth year] MEDICAL RECORD: [id number] DISCHARGE SUMMARY ADMISSION DATE: 04/27/18 DISCHARGE DATE: 05/05/18 DATE OF ADMISSION: 04/27/2018 DATE OF DISCHARGE: 05/05/2018 ADMISSION DIAGNOSES: 1. Perforated sigmoid diverticulitis. 2. ETOH abuse. 3. Anxiety disorder. 4. Chronic obstructive pulmonary disease. DISCHARGE DIAGNOSES: 1. Perforated sigmoid diverticulitis. 2. ETOH abuse. 3. Anxiety disorder. 4. Chronic obstructive pulmonary disease. 5. Pelvic abscess. PROCEDURE: CT-guided drainage of pelvic abscess by interventional radiology on 05/02. CONSULTATIONS: Interventional radiology. REPORT OF HOSPITALIZATION: The patient was admitted to the hospital through the ER with significant abdominal discomfort from perforated diverticulitis with free air and fluid collection in the pelvis found on CT scan. The patient was initially admitted to the intensive care unit because of concern of recent heavy drinking. Upon questioning the patient, he states that he is not really a heavy drinker, but had been drinking a little more recently because of some depression about the passing of his . He said normally he does not drink much at all. The patient denies any symptoms of withdrawal, and during his hospitalization, he never had any withdrawal symptoms. The patient eventually was able to be transferred out of the intensive care unit and was transferred to the floor. The patient did well initially, but then began having some worsening abdominal pain at which point a repeat CT scan was performed and this showed a large pelvic abscess. Interventional radiology was consulted for placement of a CT-guided drain. This procedure was successful in removing a large collection of fluid. Cultures showed this was growing E. coli, which was resistant to Levaquin. The patient was eventually placed on p.o. Bactrim and Flagyl. The patient's complaints were only limited to pain at the drain insertion site. He was tolerating a diet and having normal bowel function. The patient did not have any fevers and his white count was normal on the last few days of admission. The patient had a final CT scan performed on the day of discharge, which showed resolution of the large abscess pocket with only a 3.8-cm pocket of fluid near the rectum remaining. In consultation with IR, they recommended leaving the drain in place, but the patient did not want to leave the drain in and go home. There is no other reason for him to stay in the hospital, so he elected to have the drain removed even though he noted that there was a risk of the abscess pocket returning. The drain was removed without complication. He was set up for discharge home. DISCHARGE INSTRUCTIONS: He will return to clinic or call with any questions or DISCHARGE SUMMARY REPORT [id number] BEBETO LINN concerns, fevers, chills, nausea, vomiting or worsening abdominal pain. Activity is as tolerated. Followup is in clinic with me in 1-2 weeks. DISCHARGE MEDICATIONS: 1. Resume home meds with the inclusion of Bactrim-DS 1 p.o. b.i.d. for 10 days. 2. Flagyl 500 mg p.o. t.i.d. for 10 days. 3. [place] 10 every 6 hours p.r.n. TRANSINT:[id number] Voice Confirmation ID: [id number] DOCUMENT ID: [id number] MANNY SUAZO MD at 1044 CC: [id number] DICTATION DATE: 05/05/18 1340 MEASURER: 05/06/18 0304 DIS IN 05/05/18 [facility] [address] [place] [address]
== END 2018-05-05 15:22 | disposition home or self-care (01) | DRG 392 ==
LOC: D.ER 09:00 → D.EDHOLD 12:39 → D.ICU 12:39 → D.MS 12:39 → D.ICU 14:00 → D.MS 04-28 14:46
PROVIDERS: Family Medicine; General Practice; ADMIT Surgery
PROC: 0W9J30Z Drainage of Pelvic Cavity with Drainage Device, Percutaneous Approach (ICD-10-PCS; principal; 2018-04-27)
DX: K57.20 Diverticulitis of large intestine with perforation and abscess without bleeding (principal); F10.10 Alcohol abuse, uncomplicated; J44.9 Chronic obstructive pulmonary disease, unspecified; F32.9 Major depressive disorder, single episode, unspecified

== ENCOUNTER 2018-08-07 11:04 | Inpatient (IN) | payer MEDICAID ==
[~2018-08-07] VITALS: Ht 180.3 cm; Wt 81.6 kg
[~2018-08-07 11:04] MED LIST changes: +BACTRIM DS PO; +FLAGYL500 MG PO; +NORCO-10 PO
[2018-08-07] MEDS ORDERED: [UNRECOGNIZED DRUG - REMARK] (11:10)
[2018-08-07] MEDS ORDERED: [UNRECOGNIZED DRUG - REMARK] (11:11)
[2018-08-07 11:50] LABS: BASOPHILS 0.4 % (0-2); EOSINOPHILS 0.3 % (0-7); HEMOGLOBIN 16.1 g/dL (13.5-17.5); IMMATURE GRANULOCYTES 0.3 % (0-5); LYMPHOCYTES 17.6 % (15-50); MCH 39.2 pg (26.0-34.0); MCHC 35.8 g/dL (31.0-37.0); MCV 109.5 fL (80.0-100.0); MEAN PLATELET VOLUME 10.1 fL (7.4-10.4); MONOCYTES 8.1 % (2-11); NEUTROPHILS 73.3 % (40-80); RBC 4.11 10x6/uL (4.20-6.10); RDW 16.8 % (11.5-14.5); WBC 11.1 10x3/uL (4.8-10.8)
[2018-08-07 11:52] LABS: PLATELET COUNT 192 10x3/uL (130-400)
[2018-08-07 12:05] LABS: ALBUMIN 3.6 g/dL (3.4-5.0); ALKALINE PHOSPHATASE 173 U/L (46-116); ALT (SGPT) 61 U/L (10-68); AMYLASE - SERUM 49 U/L (25-115); BILIRUBIN - TOTAL 0.28 mg/dL (0.2-1.3); C-REACTIVE PROTEIN 0.3 mg/dL (0.0-0.9); CALC OSMOLALITY 273 mosm/kg (275-300); CALCIUM 8.4 mg/dL (8.5-10.1); CARBON DIOXIDE 24.6 mmol/L (21.0-32.0); CHLORIDE - SERUM 102 mmol/L (98-107); GLUCOSE 88 mg/dL (74-106); LIPASE 145 U/L (73-393); POTASSIUM - SERUM 3.9 mmol/L (3.5-5.1); PROTEIN - SERUM 8.1 g/dL (6.4-8.2); SODIUM 138 mmol/L (136-145); UREA NITROGEN 11 mg/dL (7-18); eGFR NON AFRICAN AMERICAN 84 mL/min (90-120)
--- NOTE | 2018-08-07 14:39 | NUR ---
MERREM COMPLETE [id number]
--- NOTE | 2018-08-07 15:51 | NUR ---
RECEIVED PT FROM STEPHANIE IN ER, PT IS ALERT AND ORIENTED, STATES HE IS IN A LOT OF PAIN, PT WAS HERE IN [facility] FOR SAME SYMPTOMS, STATES HE TAKES SOMETHING FOR ANXIETY AND DEPRESSION BUT UNSURE OF THE NAME OF MEDS HE IS ON. PT STATES WHEN HE USES RESTROOM IT IS HARD TO TELL IF HE HAS TO URINATE OR HAVE A BOWEL MOVEMENT. PT ASKED FOR WATER, ADVISED HE IS NPO FOR NOW BUT DR GUADALUPE WILL ADRESS DIET STATUS, PT REQUESTS PAIN MEDS, WILL ADMINISTER PRN PAIN MEDS AND ASSUME PT CARE
--- NOTE | 2018-08-07 16:22 | NUR ---
PER DR GUADALUPE PT MAY HAVE ICE CHIPS ONLY, CONTINUE WITH PLAN OF CARE
--- NOTE | 2018-08-07 18:45 | NUR ---
PT GOT IN SHOWER, CAME OUT AND C/O NAUSEA, PT STARTED TO DRY HEAVE AND VOMITED CLEAR FROTHY SUBSTANCE, PT HAD NO FLUIDS ORDERED, ORDERED NS AT 125 CONTINUOUS, NO OTHER NEEDS VOICED, CONTINUE WITH PLAN OF CARE
--- NOTE | 2018-08-07 19:45 | NUR ---
PT SITTING UP IN BED, NO SIGNS OF DISTRESS. ALERT AND ORIENTED. IV LEFT FA INFUSING NS @ 100. PT STATES PAIN 8/10 IN ABD. GAVE DILAUDID ORDERED. DENIES OTHER NEEDS. CL IN REACH, WILL CONT TO MONITOR
[2018-08-07 20:17] VITALS: BP 135/85; BMI 25.1
[2018-08-07 21:20] VITALS: BP 156/84
[2018-08-08 00:26] VITALS: BP 154/76
[2018-08-08 00:56] LABS: APPEARANCE CLEAR (CLEAR); BILIRUBIN NEGATIVE (NEGATIVE); COLOR YELLOW (YELLOW); GLUCOSE NEGATIVE (NEGATIVE); KETONE SMALL mg/dL (NEGATIVE); NITRITE NEGATIVE (NEGATIVE); PROTEIN NEGATIVE (NEGATIVE); UROBILINOGEN NORMAL (NORMAL)
[2018-08-08 04:38] VITALS: BP 151/90
[2018-08-08 06:08] LABS: BASOPHILS 0.3 % (0-2); EOSINOPHILS 0.3 % (0-7); HEMATOCRIT 41.4 % (42.0-54.0); HEMOGLOBIN 14.3 g/dL (13.5-17.5); IMMATURE GRANULOCYTES 0.1 % (0-5); LYMPHOCYTES 16.9 % (15-50); MCH 38.2 pg (26.0-34.0); MCHC 34.5 g/dL (31.0-37.0); MCV 110.7 fL (80.0-100.0); MEAN PLATELET VOLUME 10.6 fL (7.4-10.4); MONOCYTES 9.1 % (2-11); NEUTROPHILS 73.3 % (40-80); RBC 3.74 10x6/uL (4.20-6.10); RDW 16.7 % (11.5-14.5)
[2018-08-08 06:55] LABS: PLATELET COUNT 150 10x3/uL (130-400); WBC 7.9 10x3/uL (4.8-10.8)
[2018-08-08 07:04] LABS: ALBUMIN 3.2 g/dL (3.4-5.0); ALKALINE PHOSPHATASE 168 U/L (46-116); BILIRUBIN - TOTAL 0.92 mg/dL (0.2-1.3); CALCIUM 8.3 mg/dL (8.5-10.1); CARBON DIOXIDE 27.6 mmol/L (21.0-32.0); CHLORIDE - SERUM 100 mmol/L (98-107); CREATININE - SERUM 0.9 mg/dL (0.6-1.3); GLUCOSE 73 mg/dL (74-106); PROTEIN - SERUM 7.2 g/dL (6.4-8.2); SODIUM 136 mmol/L (136-145); eGFR NON AFRICAN AMERICAN > 90 mL/min (90-120)
[2018-08-08 07:06] LABS: ALT (SGPT) 43 U/L (10-68); CALC OSMOLALITY 268 mosm/kg (275-300); POTASSIUM - SERUM 4.5 mmol/L (3.5-5.1); UREA NITROGEN 7 mg/dL (7-18)
--- NOTE | 2018-08-08 07:10 | NUR ---
PT STATES HE HAS COPD AND AT HOME HE HAS BREATHING TREATMENTS THAT HELP. PT HAS BEEN COUGHING OFF AND ON WHILE ADMITTED AND COUGHED UP YELLOWISH PHLEGM. WILL SPEAK TO WILIAM ABOUT UPDRAFTS FOR PT
--- NOTE | 2018-08-08 08:32 | NUR ---
PT STATED DR GUADALUPE JUST LEFT AND HE FORGOT TO SEE IF HE CAN EAT, STATED HE IS STARVING, ADVISED PT HE IS ON GUT REST DUE TO N/V BUT I WILL ASK. NO OTHER NEEDS VOICED
[2018-08-08 08:44] VITALS: BP 130/94
[2018-08-08 12:30] VITALS: BP 164/99
[2018-08-08 12:44] VITALS: Ht 180.3 cm; Wt 81.6 kg
[2018-08-08] MEDS ORDERED: CYMBALTA30 MG PO (12:49)
[2018-08-08 15:38] VITALS: BP 143/88
--- NOTE | 2018-08-08 16:55 | NUR ---
RESITED PT IV TO RIGHT HAND, PT REQUESTED PAIN MEDICATION STATES PAIN IS CONSISTENTLY AT A 8 OR 9 EVEN WITH TORADOL, PT TOLD AID THAT PAIN MEDICATION WAS 30MINS LATE, ADVISED PT HIS MEDICATION IS NOT SCHEDULED AND THAT HE NEEDS TO ASK FOR IT WHEN HE IS HURTING AND THAT I WILL NOT ADMINISTER AHEAD OF TIME, PT WAS SNORING WHEN I WAS SCANNING MEDS, WILL CONTINUE WITH PLAN OF CARE
--- NOTE | 2018-08-08 19:45 | NUR ---
PT LYING IN BED, NO SIGNS OF DISTRESS. ALERT AND ORIENTED. IV RIGHT HAND INFUSING MVI @ 125. GAVE DILAUDID ORDERED FOR PAIN 12/26 IN ABD. PT HAS BEEN UP AMBULATING AROUND NURSES STATION WITHOUT DIFFICULTY. DENIES FURTHER NEEDS. CL IN REACH, WILL CONT TO MONITOR
[2018-08-08 22:16] VITALS: BP 141/84
[2018-08-09 04:51] VITALS: BP 142/80
--- NOTE | 2018-08-09 07:27 | NUR ---
PT STATES HE FEELS BETTER THIS MORNING AND PAIN IS AT A 6, STATES HE FEELS GREAT IN THE MORNING BUT THE DAY PROGRESSES PAIN STARTS TO INCREASE, STATED HE HAS NOT VOMITED SINCE SINCE NIGHT BEFORE LAST AND THAT THE UPDRAFTS ARE HELPING WITH HIS GAGING DUE TO LESS PHLEGM. NO OTHER NEEDS VOICED, CL IN REACH CONTINUE WITH PLAN OF CARE, ADMINISTERED PRN PAIN MEDICATION
[2018-08-09 07:42] LABS: BASOPHILS 0.2 % (0-2); EOSINOPHILS 2.1 % (0-7); HEMATOCRIT 39.5 % (42.0-54.0); HEMOGLOBIN 13.7 g/dL (13.5-17.5); IMMATURE GRANULOCYTES 0.2 % (0-5); LYMPHOCYTES 26.8 % (15-50); MCH 38.8 pg (26.0-34.0); MCHC 34.7 g/dL (31.0-37.0); MCV 111.9 fL (80.0-100.0); MEAN PLATELET VOLUME 10.7 fL (7.4-10.4); NEUTROPHILS 61.7 % (40-80); PLATELET COUNT 140 10x3/uL (130-400); RBC 3.53 10x6/uL (4.20-6.10); RDW 16.2 % (11.5-14.5); WBC 6.2 10x3/uL (4.8-10.8)
[2018-08-09 07:46] LABS: ALBUMIN 3.1 g/dL (3.4-5.0); ALKALINE PHOSPHATASE 161 U/L (46-116); ALT (SGPT) 35 U/L (10-68); BILIRUBIN - TOTAL 0.99 mg/dL (0.2-1.3); CALCIUM 8.2 mg/dL (8.5-10.1); CARBON DIOXIDE 28.3 mmol/L (21.0-32.0); CHLORIDE - SERUM 97 mmol/L (98-107); CREATININE - SERUM 0.8 mg/dL (0.6-1.3); MAGNESIUM - SERUM 2.1 mg/dL (1.8-2.4); PHOSPHOROUS 2.2 mg/dL (2.5-4.9); SODIUM 135 mmol/L (136-145); UREA NITROGEN 6 mg/dL (7-18); eGFR NON AFRICAN AMERICAN > 90 mL/min (90-120)
[2018-08-09 07:55] LABS: CALC OSMOLALITY 264 mosm/kg (275-300); POTASSIUM - SERUM 3.6 mmol/L (3.5-5.1)
[2018-08-09 07:56] LABS: GLUCOSE 45 mg/dL (74-106)
--- NOTE | 2018-08-09 08:03 | NUR ---
RECEIVED CALL FROM LAB THAT PT BLOOD SUGAR IS LOW AT45, CHECKED PT BLOOD SUGAR IN ROOM PT IS AT 54/ PT IS NON DIABETIC AND IS NPO. WILL CONTINUE TO MONITOR, PT IS ALERT AND ORIENTED, CONTINUE WITH PLAN OF CARE
[2018-08-09 08:30] VITALS: BP 140/84
[2018-08-09 11:56] VITALS: BP 150/86
[2018-08-09 15:13] VITALS: BP 166/78
--- NOTE | 2018-08-09 19:12 | NUR ---
I have reviewed this patient and I concur with the Shift Assessment completed by the Licensed Practical Nurse today this shift.
--- NOTE | 2018-08-09 20:18 | NUR ---
ASSESSMENT PER WENDI. IV PATENT RT HAND OF MVI AT 125CC'S/HR. SITE CLEAR. REQUESTING PAIN MED FOR PAIN IN RT LOWER ABDOMEN. DILAUDID 1MG IVP GIVEN FOR PAIN CONTROL.
--- NOTE | 2018-08-09 22:08 | NUR ---
AWAKE REQUESTING PAIN MED. STATES PAIN IS IN RT LOWER QUAD OF ABDOMEN. RATES PAIN #7-8. DILAUDID 1MG IVP GIVEN FOR PAIN CONTROL.
[2018-08-09 22:53] VITALS: BP 154/80
--- NOTE | 2018-08-10 | NUR ---
IV FLUIDS CHANGED TO D5W AT 100CC'S/HR ORDERED. MVI COMPLETED. REQUESTING MORE PAIN MED INFORMED TOO EARLY.
--- NOTE | 2018-08-10 02:14 | NUR ---
C/O PAIN IN RT LOWER QUAD OF ABDOMEN. RATES PAIN LEVEL #6-7. DILAUDID 1MG IVP GIVEN FOR PAIN CONTROL.
--- NOTE | 2018-08-10 04:54 | NUR ---
C/O SHARP PAIN IN LOWER ABDOMEN. DILAUDID 1MG IVP GIVEN FOR PAIN CONTROL.
[2018-08-10 05:24] VITALS: BP 145/89
--- NOTE | 2018-08-10 06:21 | NUR ---
AWAKE MEDS GIVEN PER MAR.NO CHANGES IN ASSESSMENT
[2018-08-10 06:45] LABS: BASOPHILS 0.6 % (0-2); HEMATOCRIT 40.7 % (42.0-54.0); HEMOGLOBIN 14.5 g/dL (13.5-17.5); LYMPHOCYTES 34.5 % (15-50); MCHC 35.6 g/dL (31.0-37.0); MEAN PLATELET VOLUME 10.8 fL (7.4-10.4); MONOCYTES 8.4 % (2-11); NEUTROPHILS 52.5 % (40-80); PLATELET COUNT 147 10x3/uL (130-400); RBC 3.72 10x6/uL (4.20-6.10); RDW 15.7 % (11.5-14.5)
[2018-08-10 07:02] LABS: MCV 109.4 fL (80.0-100.0)
[2018-08-10 07:07] LABS: ALBUMIN 2.9 g/dL (3.4-5.0); ALKALINE PHOSPHATASE 148 U/L (46-116); ALT (SGPT) 29 U/L (10-68); BILIRUBIN - TOTAL 0.75 mg/dL (0.2-1.3); CALC OSMOLALITY 264 mosm/kg (275-300); CALCIUM 8.3 mg/dL (8.5-10.1); CARBON DIOXIDE 29.6 mmol/L (21.0-32.0); CHLORIDE - SERUM 98 mmol/L (98-107); CREATININE - SERUM 0.8 mg/dL (0.6-1.3); MAGNESIUM - SERUM 2.1 mg/dL (1.8-2.4); PHOSPHOROUS 1.9 mg/dL (2.5-4.9); POTASSIUM - SERUM 3.8 mmol/L (3.5-5.1); PROTEIN - SERUM 7.1 g/dL (6.4-8.2); SODIUM 134 mmol/L (136-145); UREA NITROGEN 5 mg/dL (7-18); eGFR NON AFRICAN AMERICAN > 90 mL/min (90-120)
[2018-08-10 07:09] LABS: GLUCOSE 105 mg/dL (74-106)
--- NOTE | 2018-08-10 07:40 | NUR ---
PATIENT SITTING IN BED. ALERT AND ORIENTED X 3. LUNGS CLEAR BILATERALLY IN ALL LOMELI. HEART SOUNDS S1 AND S2 HEARD IN ALL LOMELI. BOWEL SOUNDS ACTIVE X 4. SKIN INTACT WITHOUT REDNESS. DENIES PAIN. REQUESTS SHOWER. ASSISTED PATIENT TO GET IN SHOWER. WILL CONTINUE TO MONITOR.
[2018-08-10 08:52] VITALS: BP 128/87
--- NOTE | 2018-08-10 10:01 | NUR ---
SLEEPING. WILL CONTINUE TO MONITOR.
--- NOTE | 2018-08-10 10:23 | NUR ---
REQUEST FOOD TRAY AFTER DIET CHANGE FROM CLEAR LIQUID TO REGULAR. DIETARY CALLED. STATED WILL BRING TRAY TO ROOM. PATIENT NOTIFIED.
--- NOTE | 2018-08-10 12:37 | NUR ---
NUTRITION F/U DIET NOW ADVANCED TO REG/LOW RESIDUE. PT REPORTS TOLERATING BREAKFAST AND AWAITING LUNCH. RD FOLLOWING
[2018-08-10 12:57] VITALS: BP 150/92
[2018-08-10] MEDS ORDERED: MIRALAX17 GM PO (15:20)
[2018-08-10] MEDS ORDERED: LEVAQUIN750 MG PO (15:21)
[2018-08-10] MEDS ORDERED: FLAGYL500 MG PO (15:22)
[2018-08-10 16:14] VITALS: BP 150/110
--- NOTE | 2018-08-10 16:30 | NUR ---
PATIENT DISCHARGE EDUCATION PROVIDED BOTH WRITTEN AND VERBAL. VERBALIZED UNDERSTANDING. DENIES FURTHER QUESTIONS. IV REMOVED TO RIGHT HAND WITH TIP INTACT. DISCHARGED HOME WITH ALL BELONGINGS.
== END 2018-08-10 16:38 | disposition home or self-care (01) | DRG 391 ==
LOC: D.ER 11:04 → D.MS 14:32 → D.EDHOLD 14:32 → D.MS 14:38
PROVIDERS: Family Medicine; ADMIT Internal Medicine Nephrology; ATTEND Internal Medicine Nephrology
DX: K57.32 Diverticulitis of large intestine without perforation or abscess without bleeding (principal); J96.21 Acute and chronic respiratory failure with hypoxia; F17.213 Nicotine dependence, cigarettes, with withdrawal; J44.9 Chronic obstructive pulmonary disease, unspecified

== ENCOUNTER 2018-08-14 07:51 | Inpatient (IN) | payer MEDICAID ==
[~2018-08-14] VITALS: Ht 180.3 cm; Wt 81.6 kg
[~2018-08-14 07:51] MED LIST changes: +CYMBALTA30 MG PO; +LEVAQUIN750 MG PO; +MIRALAX17 GM PO; +[UNRECOGNIZED DRUG - REMARK]; +[UNRECOGNIZED DRUG - REMARK]
[2018-08-14 08:39] LABS: ALBUMIN 3.2 g/dL (3.4-5.0); ALKALINE PHOSPHATASE 137 U/L (46-116); ALT (SGPT) 29 U/L (10-68); AMYLASE - SERUM 48 U/L (25-115); BILIRUBIN - TOTAL 0.68 mg/dL (0.2-1.3); CALC OSMOLALITY 273 mosm/kg (275-300); CALCIUM 8.7 mg/dL (8.5-10.1); CARBON DIOXIDE 24.7 mmol/L (21.0-32.0); CHLORIDE - SERUM 102 mmol/L (98-107); CREATININE - SERUM 0.9 mg/dL (0.6-1.3); GLUCOSE 107 mg/dL (74-106); LIPASE 132 U/L (73-393); POTASSIUM - SERUM 3.7 mmol/L (3.5-5.1); PROTEIN - SERUM 7.5 g/dL (6.4-8.2); SODIUM 138 mmol/L (136-145); UREA NITROGEN 8 mg/dL (7-18); eGFR NON AFRICAN AMERICAN > 90 mL/min (90-120)
[2018-08-14 09:02] LABS: APPEARANCE HAZY (CLEAR); COLOR YELLOW (YELLOW); SPECIFIC GRAVITY 1.015 (1.005-1.020)
[2018-08-14 09:04] LABS: BACTERIA FEW /hpf (NONE SEEN); BILIRUBIN NEGATIVE (NEGATIVE); EPITHELIAL CELLS 0-5 /hpf (0-5); GLUCOSE NEGATIVE (NEGATIVE); KETONE NEGATIVE (NEGATIVE); MUCUS <1+ /lpf (NONE SEEN); NITRITE NEGATIVE (NEGATIVE); PROTEIN NEGATIVE (NEGATIVE); UROBILINOGEN NORMAL (NORMAL); WHITE CELLS - URINE 0-5 /hpf (0-5)
[2018-08-14 09:05] LABS: BASOPHILS 0.2 % (0-2); EOSINOPHILS 1.1 % (0-7); HEMATOCRIT 41.9 % (42.0-54.0); HEMOGLOBIN 14.8 g/dL (13.5-17.5); IMMATURE GRANULOCYTES 0.4 % (0-5); LYMPHOCYTES 14.4 % (15-50); MCH 39.2 pg (26.0-34.0); MCHC 35.3 g/dL (31.0-37.0); MCV 110.8 fL (80.0-100.0); MEAN PLATELET VOLUME 10.6 fL (7.4-10.4); NEUTROPHILS 76.9 % (40-80); PLATELET COUNT 203 10x3/uL (130-400); RBC 3.78 10x6/uL (4.20-6.10); WBC 9.8 10x3/uL (4.8-10.8)
--- NOTE | 2018-08-14 11:03 | MORECARE ---
CASE MANAGEMENT DISCHARGE SUMMARY PATIENT: BEBETO LINN UNIT: [id number] ADM DATE: 08/14/18 AGE: 52 : 69 SEX: M ROOM/BED: D.E10 AUTHOR: PARAMJIT FLORES PHYSICIAN: REFERRING PHYSICIAN: DIALLO CASTILLO MD DATE OF SERVICE: 08/14/18 Discharge Plan Patient Name: BEBETO LINN Facility: [facility]:[place] : 1965 Planned Disposition: Home Anticipated Discharge Date: 08/16/18 Discharge Date: Expected LOS: 2 Initial Reviewer: [email or web address] Initial Review Date: 08/14/2018 Generated: 08/14/18 12:03 pm DCPIA - Discharge Planning Initial Assessment Updated by [email or web address]: Rhiannon Krishnamurthy on 08/14/18 10:59 am * Is the patient Alert and Oriented? Yes * How many steps to enter\exit or inside your home? * PCP Dr. Aleman * Pharmacy [facility] on [address] * Preadmission Environment Home Alone * ADLs Independent * Equipment Oxygen Rolling Walker * Other Equipment Walker with portability. He is unsure who his O2 company is. * List name and contact numbers for known caregivers / representatives who currently or will assist patient after discharge: Ross Lynn - friend/transportation at [place] [phone] * Verbal permission to speak to the caregivers and representatives has been obtained from the patient. Yes * Community resources currently utilized Other * Additional services required to return to the preadmission environment? No * Can the patient safely return to the preadmission environment? Yes * Has this patient been hospitalized within the prior 30 days at any hospital? Yes Patient Name: BEBETO LINN Page [id number] at 1103 All edits/amendments must be made on the electronic document DICTATION DATE: 08/14/181101 WIPER BLENDER: JAYSON 08/14/181101 RPT#: [id number] [place] DATE: STATUS: ADM IN [facility] [address] [place] [address] END OF REPORT
--- NOTE | 2018-08-14 11:15 | MORECARE ---
CASE MANAGEMENT DISCHARGE SUMMARY PATIENT: BEBETO LINN UNIT: [id number] ADM DATE: 08/14/18 AGE: 52 : 69 SEX: M ROOM/BED: D.E10 AUTHOR: PARAMJIT FLORES PHYSICIAN: REFERRING PHYSICIAN: DIALLO CASTILLO MD DATE OF SERVICE: 08/14/18 Discharge Plan Patient Name: BEBETO LINN Facility: [facility]:[place] : 1965 Planned Disposition: Home Anticipated Discharge Date: 08/16/18 Discharge Date: Expected LOS: 2 Initial Reviewer: [email or web address] Initial Review Date: 08/14/2018 Generated: 08/14/18 12:15 pm DCP- Discharge Planning Updated by [email or web address]: Rhiannon Krishnamurthy on 08/14/18 10:[address] Patient Name: BEBETO LINN Admission Status: ER Accout number: [id number] Admission Date: 08-14-2018 : 1965 Admission Diagnosis: Attending: DIALLO MADRID Current LOS: 1 Anticipated DC Date: 08-16-2018 Planned Disposition: Home Primary Insurance: MEDICAID [place] Discharge Planning Comments: CM met with patient to complete initial dc planning assessment. CM educated patient on the CM role and verbal consent given by patient to complete assessment. CM verified patient's address, phone number, and emergency contact phone numbers. Patient lives at home alone and reports he is independent with his ADL's and IADL's. At discharge patient plans to return home alone and feels this is a safe discharge if he does not have to have surgery. CM discussed availability of home health, rehab services, and medical equipment. Patient denied known discharge needs at this time unless he has to have surgery. Patient reports his friend, Ross Lynn, will transport him/her home at time of discharge. CM will continue to follow and will assist as needed with dc plans/needs. Quality Auditor: Rhiannon Krishnamurthy RN, [facility] DCPIA - Discharge Planning Initial Assessment Updated by [email or web address]: Rhiannon Krishnamurthy on 08/14/18 10:59 am * Is the patient Alert and Oriented? Yes * How many steps to enter\exit or inside your home? * PCP Dr. Aleman * Pharmacy [facility] on [address] * Preadmission Environment Home Alone * ADLs Independent * Equipment Oxygen Rolling Walker * Other Equipment Walker with portability. He is unsure who his O2 company is. * List name and contact numbers for known caregivers / representatives who currently or will assist patient after discharge: Ross Lynn - friend/transportation at [facility] [phone] * Verbal permission to speak to the caregivers and representatives has been obtained from the patient. Yes * Community resources currently utilized Other * Additional services required to return to the preadmission environment? No * Can the patient safely return to the preadmission environment? Yes * Has this patient been hospitalized within the prior 30 days at any hospital? Yes Last DP export: 08/14/18 10:03 a Patient Name: BEBETO LINN Page [phone] at 1115 All edits/amendments must be made on the electronic document DICTATION DATE: 08/14/18 1115 PHYSICIAN SPECIALIST: JAYSON 08/14/18 1115 RPT#: [id number] [place] DATE: STATUS: ADM IN [facility] [address] [place] [address] END OF REPORT
[2018-08-14 14:29] VITALS: BP 128/86; BMI 25.1
[2018-08-14 17:27] VITALS: BP 101/59
[2018-08-14 20:00] VITALS: BP 133/97
[2018-08-15] VITALS (9 sets, daily range): BP systolic 101–131; BP diastolic 61–76; Ht 180.3 cm; Wt 81.6 kg
[2018-08-15 06:32] LABS: BASOPHILS 0.2 % (0-2); EOSINOPHILS 0.7 % (0-7); HEMATOCRIT 40.1 % (42.0-54.0); HEMOGLOBIN 13.8 g/dL (13.5-17.5); IMMATURE GRANULOCYTES 0.3 % (0-5); LYMPHOCYTES 15.1 % (15-50); MCH 38.3 pg (26.0-34.0); MCHC 34.4 g/dL (31.0-37.0); MCV 111.4 fL (80.0-100.0); MEAN PLATELET VOLUME 10.8 fL (7.4-10.4); MONOCYTES 10.1 % (2-11); NEUTROPHILS 73.6 % (40-80); PLATELET COUNT 204 10x3/uL (130-400); RDW 16.1 % (11.5-14.5); WBC 9.7 10x3/uL (4.8-10.8)
[2018-08-15 07:38] LABS: CALC OSMOLALITY 268 mosm/kg (275-300); CALCIUM 8.2 mg/dL (8.5-10.1); CARBON DIOXIDE 28.3 mmol/L (21.0-32.0); CHLORIDE - SERUM 101 mmol/L (98-107); GLUCOSE 80 mg/dL (74-106); POTASSIUM - SERUM 3.8 mmol/L (3.5-5.1); SODIUM 136 mmol/L (136-145); UREA NITROGEN 6 mg/dL (7-18); eGFR NON AFRICAN AMERICAN 84 mL/min (90-120)
[2018-08-16 00:19] VITALS: BP 100/55
[2018-08-16 05:05] VITALS: BP 99/65
[2018-08-16 06:12] LABS: BASOPHILS 0.1 % (0-2); EOSINOPHILS 0 % (0-7); HEMATOCRIT 36.9 % (42.0-54.0); HEMOGLOBIN 12.9 g/dL (13.5-17.5); IMMATURE GRANULOCYTES 0.4 % (0-5); LYMPHOCYTES 4.8 % (15-50); MCH 38.7 pg (26.0-34.0); MCV 110.8 fL (80.0-100.0); MEAN PLATELET VOLUME 10.4 fL (7.4-10.4); NEUTROPHILS 87.7 % (40-80); PLATELET COUNT 221 10x3/uL (130-400); RBC 3.33 10x6/uL (4.20-6.10); RDW 15.8 % (11.5-14.5)
[2018-08-16 06:36] LABS: WBC 12.8 10x3/uL (4.8-10.8)
[2018-08-16 06:43] LABS: ALBUMIN 2.5 g/dL (3.4-5.0); ALKALINE PHOSPHATASE 77 U/L (46-116); BILIRUBIN - TOTAL 0.63 mg/dL (0.2-1.3); CALCIUM 8.3 mg/dL (8.5-10.1); CARBON DIOXIDE 26.6 mmol/L (21.0-32.0); CHLORIDE - SERUM 103 mmol/L (98-107); CREATININE - SERUM 0.9 mg/dL (0.6-1.3); GLUCOSE 109 mg/dL (74-106); SODIUM 135 mmol/L (136-145); eGFR NON AFRICAN AMERICAN > 90 mL/min (90-120)
[2018-08-16 06:46] LABS: ALT (SGPT) 18 U/L (10-68); CALC OSMOLALITY 269 mosm/kg (275-300); POTASSIUM - SERUM 4.7 mmol/L (3.5-5.1); UREA NITROGEN 10 mg/dL (7-18)
[2018-08-16 10:16] VITALS: BP 110/73
[2018-08-16 12:48] VITALS: BP 91/54
--- NOTE | 2018-08-16 14:40 | OP ---
PATIENT NAME: BEBETO LINN MEDICAL RECORD: [id number] :69 LOCATION:D.MS [id number] ADMISSION DATE:08/14/18 SURGEON: TRA SUAZO MD DATE OF OPERATION: 08/15/2018 PREOPERATIVE DIAGNOSES: 1. Recurrent sigmoid diverticulitis with perforation. 2. Chronic obstructive pulmonary disease. 3. ETOH abuse. 4. Anxiety disorder. POSTOPERATIVE DIAGNOSES: 1. Recurrent sigmoid diverticulitis with perforation. 2. Chronic obstructive pulmonary disease. 3. ETOH abuse. 4. Anxiety disorder. PROCEDURE: Hand-assisted laparoscopic Filomena's procedure. SURGEON: Tra Suazo MD INSPECTOR RADAR AND ELECTRONICS: Manju Briscoe MD REPORT OF PROCEDURE: The patient's abdomen was prepped and draped in sterile fashion. A skin incision was made in the lower aspect of the abdomen in the midline, in the suprapubic region. Electrocautery was used to dissect through the subcutaneous tissues and through the fascia into the abdominal cavity. A GelPort was then inserted with a 5-mm trocar within it. We insufflated the abdomen and placed a 5-mm trocar in the right lateral abdomen and a 12-mm trocar just anterior to the right anterior superior iliac crest. The patient had a lot of inflammatory adhesions present in the pelvis. As we did finger dissection, we ran into a pocket of purulence, this was evacuated. As we continued our dissection, we could see that the mid and distal portion of the sigmoid colon was acutely inflamed and swollen with dilatation and inflammation of the surrounding fatty tissue. We eventually were able to free up an area of the proximal rectum, which appeared to be normal in caliber and we were able to make a window through the mesorectum and fired a 60 blue load Endo-HELEN stapler across the proximal rectum. We then fired 60 white load Endo-HELEN staplers across the mesenteric fatty tissue until we got past the area of inflammatory changes. We then eviscerated the bowel through the wound protector. The mesentery was taken down with sequential clamp and tie technique with 3-0 silks. We then transected the proximal sigmoid colon where it appeared to be normal in caliber using a 60 blue load Endo-HELEN stapler. We inspected the pelvis and any sign of bleeding was treated with ties or electrocautery. The rectal stump was then marked with 2-0 Prolene. The abdomen was then irrigated out thoroughly with normal saline and the 19-Nepalese Jefry drain was inserted through the 5-mm trocar site. This was sutured into place with 3-0 nylon. An opening was made in the left lateral lower quadrant and electrocautery was used to dissect through the subcutaneous tissues and the fascia until we were able to penetrate the abdominal cavity. The distal end of the colon was eviscerated through this opening for our colostomy. The midline fascia was then closed with a running #1 loop PDS times 2 and the subcutaneous tissues were reapproximated with interrupted 3-0 Vicryls. The skin incisions were all closed with steven. We then matured the ostomy using multiple interrupted 4-0 Vicryls, maturing the ostomy in a Terrie fashion. Ostomy appliance was applied and dressings were applied as well. OPERATIVE REPORT [id number] BEBETO LINN COMPLICATIONS: None. CONDITION: Stable. ANESTHESIA: General endotracheal. BLOOD LOSS: 100 mL. TRANSINT:[id number] Voice Confirmation ID: [id number] DOCUMENT ID: [id number] TRA SUAZO MD at 1440 CC: [id number] DICTATION DATE: 08/15/18 1534 PLATE PRINTER: 08/15/18 1655 ADM IN [facility] [address] [place] [address]
[2018-08-16 15:46] VITALS: BP 99/68
[2018-08-16 22:12] VITALS: BP 114/83
[2018-08-17 00:45] VITALS: BP 108/68
[2018-08-17 05:12] VITALS: BP 136/84
[2018-08-17 05:31] LABS: BASOPHILS 0.1 % (0-2); HEMATOCRIT 35.9 % (42.0-54.0); HEMOGLOBIN 12.3 g/dL (13.5-17.5); IMMATURE GRANULOCYTES 0.2 % (0-5); LYMPHOCYTES 11.2 % (15-50); MCH 38.2 pg (26.0-34.0); MCHC 34.3 g/dL (31.0-37.0); MCV 111.5 fL (80.0-100.0); MEAN PLATELET VOLUME 10.2 fL (7.4-10.4); MONOCYTES 7.7 % (2-11); NEUTROPHILS 79.8 % (40-80); PLATELET COUNT 224 10x3/uL (130-400); RBC 3.22 10x6/uL (4.20-6.10); RDW 15.7 % (11.5-14.5); WBC 9.9 10x3/uL (4.8-10.8)
[2018-08-17 05:57] LABS: ALBUMIN 2.3 g/dL (3.4-5.0); ALKALINE PHOSPHATASE 77 U/L (46-116); ALT (SGPT) 17 U/L (10-68); BILIRUBIN - TOTAL 0.56 mg/dL (0.2-1.3); CALCIUM 7.8 mg/dL (8.5-10.1); CARBON DIOXIDE 23.1 mmol/L (21.0-32.0); CHLORIDE - SERUM 102 mmol/L (98-107); CREATININE - SERUM 0.9 mg/dL (0.6-1.3); PROTEIN - SERUM 6.1 g/dL (6.4-8.2); SODIUM 136 mmol/L (136-145); UREA NITROGEN 10 mg/dL (7-18); eGFR NON AFRICAN AMERICAN > 90 mL/min (90-120)
[2018-08-17 05:59] LABS: CALC OSMOLALITY 268 mosm/kg (275-300); GLUCOSE 68 mg/dL (74-106); POTASSIUM - SERUM 3.5 mmol/L (3.5-5.1)
[2018-08-17 08:35] VITALS: BP 144/86
[2018-08-17 12:11] VITALS: BP 120/83
[2018-08-17 16:08] VITALS: BP 118/92
[2018-08-17 21:34] VITALS: BP 105/80
[2018-08-18 05:27] VITALS: BP 145/96
[2018-08-18 05:40] LABS: BASOPHILS 0.3 % (0-2); EOSINOPHILS 2.7 % (0-7); HEMATOCRIT 35.6 % (42.0-54.0); HEMOGLOBIN 12.4 g/dL (13.5-17.5); IMMATURE GRANULOCYTES 0.4 % (0-5); LYMPHOCYTES 13.4 % (15-50); MCH 38.4 pg (26.0-34.0); MCHC 34.8 g/dL (31.0-37.0); MCV 110.2 fL (80.0-100.0); MONOCYTES 9.4 % (2-11); NEUTROPHILS 73.8 % (40-80); PLATELET COUNT 258 10x3/uL (130-400); RBC 3.23 10x6/uL (4.20-6.10); RDW 15.5 % (11.5-14.5); WBC 7.9 10x3/uL (4.8-10.8)
[2018-08-18 06:10] LABS: ALBUMIN 2.2 g/dL (3.4-5.0); ALKALINE PHOSPHATASE 75 U/L (46-116); ALT (SGPT) 15 U/L (10-68); CALCIUM 8.1 mg/dL (8.5-10.1); CARBON DIOXIDE 26.8 mmol/L (21.0-32.0); CHLORIDE - SERUM 103 mmol/L (98-107); CREATININE - SERUM 0.7 mg/dL (0.6-1.3); GLUCOSE 77 mg/dL (74-106); POTASSIUM - SERUM 3.3 mmol/L (3.5-5.1); SODIUM 135 mmol/L (136-145); eGFR NON AFRICAN AMERICAN > 90 mL/min (90-120)
[2018-08-18 06:12] LABS: CALC OSMOLALITY 265 mosm/kg (275-300); UREA NITROGEN 4 mg/dL (7-18)
[2018-08-18 08:17] VITALS: BP 144/95
[2018-08-18 12:18] VITALS: BP 129/72
--- NOTE | 2018-08-18 12:42 | MORECARE ---
CASE MANAGEMENT DISCHARGE SUMMARY PATIENT: BEBETO LINN UNIT: [id number] ADM DATE: 08/14/18 AGE: 52 : 69 SEX: M ROOM/BED: D.2235 AUTHOR: PARAMJIT FLORES PHYSICIAN: REFERRING PHYSICIAN: DIALLO CASTILLO MD DATE OF SERVICE: 08/18/18 Discharge Plan Patient Name: BEBETO LINN Facility: [facility]:[place] : 1965 Planned Disposition: Home Anticipated Discharge Date: 08/16/18 Discharge Date: Expected LOS: 2 Initial Reviewer: [email or web address] Initial Review Date: 08/14/2018 Generated: 08/18/18 1:42 pm DCP- Discharge Planning Updated by [email or web address]: Rhiannon Krishnamurthy on 08/14/18 10:[address] Patient Name: BEBETO LINN Admission Status: ER Accout number: [id number] Admission Date: 08-14-2018 : 1965 Admission Diagnosis: Attending: DIALLO MADRID Current LOS: 1 Anticipated DC Date: 08-16-2018 Planned Disposition: Home Primary Insurance: MEDICAID [place] Discharge Planning Comments: CM met with patient to complete initial dc planning assessment. CM educated patient on the CM role and verbal consent given by patient to complete assessment. CM verified patient's address, phone number, and emergency contact phone numbers. Patient lives at home alone and reports he is independent with his ADL's and IADL's. At discharge patient plans to return home alone and feels this is a safe discharge if he does not have to have surgery. CM discussed availability of home health, rehab services, and medical equipment. Patient denied known discharge needs at this time unless he has to have surgery. Patient reports his friend, Ross Lynn, will transport him/her home at time of discharge. CM will continue to follow and will assist as needed with dc plans/needs. Manager Energy: Rhiannon Krishnamurthy RN, [facility] DCPIA - Discharge Planning Initial Assessment Updated by [email or web address]: Rhiannon Krishnamurthy on 08/14/18 10:59 am * Is the patient Alert and Oriented? Yes * How many steps to enter\exit or inside your home? * PCP Dr. Aleman * Pharmacy [facility] on [address] * Preadmission Environment Home Alone * ADLs Independent * Equipment Oxygen Rolling Walker * Other Equipment Walker with portability. He is unsure who his O2 company is. * List name and contact numbers for known caregivers / representatives who currently or will assist patient after discharge: Ross Lynn - friend/transportation at [facility] [phone] * Verbal permission to speak to the caregivers and representatives has been obtained from the patient. Yes * Community resources currently utilized Other * Additional services required to return to the preadmission environment? No * Can the patient safely return to the preadmission environment? Yes * Has this patient been hospitalized within the prior 30 days at any hospital? Yes External Providers [facility] Provider[facility] [place] Next Contact Date: Service Request Date: Service Type: Resolution: Reviewer: Comments: Coverage Notice Reviewer: [email or web address] Chadd Bullard Notice Issued Date-Time: 08/18/2018 12:42 Notice Type: Patient Choice Letter Notice Delivered To: Patient Relationship to Patient: Faa Certified Powerplant Mechanic Name: Delivery Method: - Colleen Days: Prior Verbal Notification: Recipient Understood Notice: Recipient Signature: Med Rec Note Co-signed by Attending: Coverage Notice Comment: Last DP export: 08/14/18 10:15 a Patient Name: BEBETO LINN Page 98426 at 1242 All edits/amendments must be made on the electronic document DICTATION DATE: 08/18/18 1242 NETWORK INFRASTRUCTURE ARCHITECT: JAYSON 08/18/18 1242 RPT#: [id number] MA DATE: STATUS: ADM IN [facility] [address] [place] [address] END OF REPORT
--- NOTE | 2018-08-18 12:51 | MORECARE ---
CASE MANAGEMENT DISCHARGE SUMMARY PATIENT: BEBETO LINN UNIT: [id number] ADM DATE: 08/14/18 AGE: 52 : 69 SEX: M ROOM/BED: D.2235 AUTHOR: PARAMJIT FLORES PHYSICIAN: REFERRING PHYSICIAN: DIALLO CASTILLO MD DATE OF SERVICE: 08/18/18 Discharge Plan Patient Name: BEBETO LINN Facility: [facility]:[place] : 1965 Planned Disposition: Home Anticipated Discharge Date: 08/16/18 Discharge Date: Expected LOS: 2 Initial Reviewer: [email or web address] Initial Review Date: 08/14/2018 Generated: 08/18/18 1:50 pm Comments DCP- Discharge Planning Updated by [email or web address]: Astrid Bullard on 08/18/18 11:[address] Sp[address] with Dr. Lizama, he would like patient set up with [facility] for ostomy care/teaching. I spoke with the patient and he would like [facility] again. States he had them in January after knee surgery. I asked for 2nd choice if they are unable to see him tomorrow and he said "No, I only want [facility] and it's ok if they cannot come out tomorrow. " Dr. Lizama is the one that wants me to have it, I don't think I need it. KAYLEN signed for [facility]. I spoke with Jerica and Mejia and clinical faxed. They will see him Tuesday. She states if an opening becomes available tomorrow, they will see him tomorrow. CM will continue to follow and assist with discharge planning/needs. DCP- Discharge Planning Updated by [email or web address]: Rhiannon Krishnamurthy on 08/14/18 10:[address] Patient Name: BEBETO LINN Admission Status: ER Accout number: [id number] Admission Date: 08-14-2018 : 1965 Admission Diagnosis: Attending: DIALLO MADRID Current LOS: 1 Anticipated DC Date: 08-16-2018 Planned Disposition: Home Primary Insurance: MEDICAID [place] Discharge Planning Comments: CM met with patient to complete initial dc planning assessment. CM educated patient on the CM role and verbal consent given by patient to complete assessment. CM verified patient's address, phone number, and emergency contact phone numbers. Patient lives at home alone and reports he is independent with his ADL's and IADL's. At discharge patient plans to return home alone and feels this is a safe discharge if he does not have to have surgery. CM discussed availability of home health, rehab services, and medical equipment. Patient denied known discharge needs at this time unless he has to have surgery. Patient reports his friend, Ross Lynn, will transport him/her home at time of discharge. CM will continue to follow and will assist as needed with dc plans/needs. Community Organizer: Rhiannon Krishnamurthy RN, [facility] DCPIA - Discharge Planning Initial Assessment Updated by [email or web address]: Rhiannon Krishnamurthy on 08/14/18 10:59 am * Is the patient Alert and Oriented? Yes * How many steps to enter\\exit or inside your home? * PCP Dr. Aleman * [facility] [address] * Preadmission Environment Home Alone * ADLs Independent * Equipment Oxygen Rolling Walker * Other Equipment Walker with portability. He is unsure who his O2 company is. * List name and contact numbers for known caregivers / representatives who currently or will assist patient after discharge: Ross Lynn - friend/transportation at [facility] [phone] * Verbal permission to speak to the caregivers and representatives has been obtained from the patient. Yes * Community resources currently utilized Other * Additional services required to return to the preadmission environment? No * Can the patient safely return to the preadmission environment? Yes * Has this patient been hospitalized within the prior 30 days at any hospital? Yes Coverage Notice Reviewer: [email or web address] Chadd Bullard Notice Issued Date-Time: 08/18/2018 12:42 Notice Type: Patient Choice Letter Notice Delivered To: Patient Relationship to Patient: Damage Appraiser Name: Delivery Method: HAND - Hand Delivered Colleen Days: Prior Verbal Notification: Recipient Understood Notice: Yes Recipient Signature: Yes Med Rec Note Co-signed by Attending: Coverage Notice Comment: KAYLEN for [facility] Last DP export: 08/18/18 11:42 am Patient Name: BEBETO LINN Page 02642 at 1251 All edits/amendments must be made on the electronic document DICTATION DATE: 08/18/18 125 WELFARE ADMINISTRATOR: DM 08/18/18 1250 RPT#: [id number] DC DATE: STATUS: ADM IN [facility] [address] [place] [address] END OF REPORT
[2018-08-18 16:45] VITALS: BP 142/86
[2018-08-18 19:35] VITALS: BP 128/72
[2018-08-19 05:45] VITALS: BP 140/83
[2018-08-19 06:02] LABS: BASOPHILS 0.2 % (0-2); EOSINOPHILS 3.7 % (0-7); HEMATOCRIT 33.1 % (42.0-54.0); HEMOGLOBIN 11.5 g/dL (13.5-17.5); IMMATURE GRANULOCYTES 0.2 % (0-5); LYMPHOCYTES 12.3 % (15-50); MCH 37.8 pg (26.0-34.0); MCHC 34.7 g/dL (31.0-37.0); MCV 108.9 fL (80.0-100.0); MEAN PLATELET VOLUME 10.1 fL (7.4-10.4); MONOCYTES 10.9 % (2-11); NEUTROPHILS 72.7 % (40-80); PLATELET COUNT 290 10x3/uL (130-400); RBC 3.04 10x6/uL (4.20-6.10); RDW 15.6 % (11.5-14.5); WBC 8.3 10x3/uL (4.8-10.8)
[2018-08-19 06:37] LABS: ALKALINE PHOSPHATASE 78 U/L (46-116); ALT (SGPT) 12 U/L (10-68); BILIRUBIN - TOTAL 0.26 mg/dL (0.2-1.3); CALC OSMOLALITY 268 mosm/kg (275-300); CALCIUM 7.9 mg/dL (8.5-10.1); CARBON DIOXIDE 27.7 mmol/L (21.0-32.0); CHLORIDE - SERUM 105 mmol/L (98-107); CREATININE - SERUM 0.7 mg/dL (0.6-1.3); GLUCOSE 88 mg/dL (74-106); POTASSIUM - SERUM 3.2 mmol/L (3.5-5.1); PROTEIN - SERUM 5.4 g/dL (6.4-8.2); SODIUM 137 mmol/L (136-145); eGFR NON AFRICAN AMERICAN > 90 mL/min (90-120)
[2018-08-19 06:38] LABS: UREA NITROGEN 1 mg/dL (7-18)
[2018-08-19 09:10] VITALS: BP 134/93
[2018-08-19 13:35] VITALS: BP 151/85
[2018-08-19 16:48] VITALS: BP 130/83
--- NOTE | 2018-08-19 19:12 | MORECARE ---
CASE MANAGEMENT DISCHARGE SUMMARY PATIENT: BEBETO LINN UNIT: [id number] ADM DATE: 08/14/18 AGE: 52 : 69 SEX: M ROOM/BED: D.2235 AUTHOR: PARAMJIT FLORES PHYSICIAN: REFERRING PHYSICIAN: DIALLO CASTILLO MD DATE OF SERVICE: 08/19/18 Discharge Plan Patient Name: BEBETO LINN Facility: [facility]:[place] : 1965 Planned Disposition: Home Anticipated Discharge Date: 08/16/18 Discharge Date: Expected LOS: 2 Initial Reviewer: [email or web address] Initial Review Date: 08/14/2018 Generated: 08/19/18 8:12 pm Comments DCP- Discharge Planning Updated by [email or web address]: Nicole Marie on 08/19/18 6:[address] LATE ENTRY 1030 PATIENT HAS BEEN SEEN BY WOUND CARE NURSE FOR OSTOMY TEACHING. SHE ALSO PROVIDED HIM WITH A LIST OF OSTOMY CARE SUPPLIERS. PRELIMINARY HOME HEALTH REFERRAL HAS BEEN FORWARDED. WILL CALL [facility] WHEN THE PATIENT IS DISCHARGED AND FAX DISCHARGE INSTRUCTIONS. DCP- Discharge Planning Updated by [email or web address]: Astrid Bullard on 08/18/18 11:[address] Dr. Lizama, he would like patient set up with home health for ostomy care/teaching. I spoke with the patient and he would like [facility] again. States he had them in January after knee surgery. I asked for 2nd choice if they are unable to see him tomorrow and he said "No, I only want [facility] and it's ok if they cannot come out tomorrow. " Dr. Lizama is the one that wants me to have it, I don't think I need it. KAYLEN signed for [facility]. I spoke with Jerica and Mejia and clinical faxed. They will see him Tuesday. She states if an opening becomes available tomorrow, they will see him tomorrow. CM will continue to follow and assist with discharge planning/needs. DCP- Discharge Planning Updated by [email or web address]: Rhiannon Krishnamurthy on 08/14/18 10:[address] Patient Name: BEBETO LINN Admission Status: ER Accout number: [id number] Admission Date: 08-14-2018 : 1965 Admission Diagnosis: Attending: DIALLO MADRID Current LOS: 1 Anticipated DC Date: 08-16-2018 Planned Disposition: Home Primary Insurance: MEDICAID [place] Discharge Planning Comments: CM met with patient to complete initial dc planning assessment. CM educated patient on the CM role and verbal consent given by patient to complete assessment. CM verified patient's address, phone number, and emergency contact phone numbers. Patient lives at home alone and reports he is independent with his ADL's and IADL's. At discharge patient plans to return home alone and feels this is a safe discharge if he does not have to have surgery. CM discussed availability of home health, rehab services, and medical equipment. Patient denied known discharge needs at this time unless he has to have surgery. Patient reports his friend, Ross Lynn, will transport him/her home at time of discharge. CM will continue to follow and will assist as needed with dc plans/needs. Linux System Administrator: Rhiannon Krishnamurthy RN, [facility] DCPIA - Discharge Planning Initial Assessment Updated by [email or web address]: Rhiannon Krishnamurthy on 08/14/18 10:59 am * Is the patient Alert and Oriented? Yes * How many steps to enter\\exit or inside your home? * PCP Dr. Aleman * Pharmacy [facility] on [facility] * Preadmission Environment Home Alone * ADLs Independent * Equipment Oxygen Rolling Walker * Other Equipment Walker with portability. He is unsure who his O2 company is. * List name and contact numbers for known caregivers / representatives who currently or will assist patient after discharge: Ross Lynn - friend/transportation at [facility] [phone] * Verbal permission to speak to the caregivers and representatives has been obtained from the patient. Yes * Community resources currently utilized Other * Additional services required to return to the preadmission environment? No * Can the patient safely return to the preadmission environment? Yes * Has this patient been hospitalized within the prior 30 days at any hospital? Yes Coverage Notice Reviewer: [email or web address] - Astrid Bullard Notice Issued Date-Time: 08/18/2018 12:42 Notice Type: Patient Choice Letter Notice Delivered To: Patient Relationship to Patient: Derrick Car Operator Name: Delivery Method: HAND - Hand Delivered Colleen Days: Prior Verbal Notification: Recipient Understood Notice: Yes Recipient Signature: Yes Med Rec Note Co-signed by Attending: Coverage Notice Comment: KAYLEN for [facility] Last DP export: 08/18/18 11:50 am Patient Name: BEBETO LINN Page [id number] at 191 All edits/amendments must be made on the electronic document DICTATION DATE: 08/19/181911 CONSTRUCTION HELPER: JAYSON 08/19/181911 RPT#: [id number] DC DATE: STATUS: ADM IN [facility] [address] [place] [address] END OF REPORT
[2018-08-19 21:01] VITALS: BP 109/61
[2018-08-20 05:21] VITALS: BP 145/85
[2018-08-20 06:02] LABS: BASOPHILS 0.2 % (0-2); EOSINOPHILS 2.8 % (0-7); HEMATOCRIT 39.1 % (42.0-54.0); HEMOGLOBIN 13.7 g/dL (13.5-17.5); IMMATURE GRANULOCYTES 0.4 % (0-5); LYMPHOCYTES 13.9 % (15-50); MCH 37.7 pg (26.0-34.0); MCV 107.7 fL (80.0-100.0); MEAN PLATELET VOLUME 9.9 fL (7.4-10.4); NEUTROPHILS 71.7 % (40-80); PLATELET COUNT 297 10x3/uL (130-400); RBC 3.63 10x6/uL (4.20-6.10); RDW 15.4 % (11.5-14.5)
[2018-08-20 06:48] LABS: ALBUMIN 2.5 g/dL (3.4-5.0); ALKALINE PHOSPHATASE 95 U/L (46-116); BILIRUBIN - TOTAL 0.45 mg/dL (0.2-1.3); CALC OSMOLALITY 267 mosm/kg (275-300); CALCIUM 8.1 mg/dL (8.5-10.1); CHLORIDE - SERUM 103 mmol/L (98-107); CREATININE - SERUM 0.8 mg/dL (0.6-1.3); GLUCOSE 78 mg/dL (74-106); PROTEIN - SERUM 5.9 g/dL (6.4-8.2); SODIUM 136 mmol/L (136-145); UREA NITROGEN 3 mg/dL (7-18); eGFR NON AFRICAN AMERICAN > 90 mL/min (90-120)
[2018-08-20 06:49] LABS: ALT (SGPT) 16 U/L (10-68)
[2018-08-20 09:25] VITALS: BP 153/87
[2018-08-20 13:48] VITALS: BP 153/94
[2018-08-20 17:18] VITALS: BP 105/77
[2018-08-20 19:45] VITALS: BP 124/68
[2018-08-20 23:55] VITALS: BP 130/86
[2018-08-21 03:45] VITALS: BP 138/82
[2018-08-21 05:50] LABS: BASOPHILS 0.2 % (0-2); EOSINOPHILS 3.4 % (0-7); HEMATOCRIT 35.7 % (42.0-54.0); HEMOGLOBIN 12.4 g/dL (13.5-17.5); IMMATURE GRANULOCYTES 0.5 % (0-5); LYMPHOCYTES 13.4 % (15-50); MCH 37.5 pg (26.0-34.0); MCHC 34.7 g/dL (31.0-37.0); MCV 107.9 fL (80.0-100.0); MEAN PLATELET VOLUME 9.7 fL (7.4-10.4); MONOCYTES 13.8 % (2-11); NEUTROPHILS 68.7 % (40-80); PLATELET COUNT 334 10x3/uL (130-400); RBC 3.31 10x6/uL (4.20-6.10); RDW 15.3 % (11.5-14.5); WBC 9.4 10x3/uL (4.8-10.8)
[2018-08-21 06:20] LABS: ALBUMIN 2.4 g/dL (3.4-5.0); ALKALINE PHOSPHATASE 86 U/L (46-116); ALT (SGPT) 14 U/L (10-68); BILIRUBIN - TOTAL 0.22 mg/dL (0.2-1.3); CALC OSMOLALITY 271 mosm/kg (275-300); CARBON DIOXIDE 28.2 mmol/L (21.0-32.0); CHLORIDE - SERUM 103 mmol/L (98-107); CREATININE - SERUM 0.8 mg/dL (0.6-1.3); GLUCOSE 111 mg/dL (74-106); POTASSIUM - SERUM 3.6 mmol/L (3.5-5.1); PROTEIN - SERUM 5.6 g/dL (6.4-8.2); SODIUM 137 mmol/L (136-145); UREA NITROGEN 3 mg/dL (7-18); eGFR NON AFRICAN AMERICAN > 90 mL/min (90-120)
[2018-08-21 08:48] VITALS: BP 132/88
[2018-08-21] MEDS ORDERED: PERCOCET 10-321 EAC1 PO (13:07)
[2018-08-21 13:27] VITALS: BP 124/76
--- NOTE | 2018-08-21 13:36 | MORECARE ---
CASE MANAGEMENT DISCHARGE SUMMARY PATIENT: BEBETO LINN UNIT: [id number] ADM DATE: 08/14/18 AGE: 52 : [birth year] SEX: M ROOM/BED: D.2235 AUTHOR: PARAMJIT FLORES PHYSICIAN: REFERRING PHYSICIAN: DIALLO CASTILLO MD DATE OF SERVICE: 08/21/18 Discharge Plan Patient Name: BEBETO LINN Facility: [facility]:[place] : 1965 Planned Disposition: Home Anticipated Discharge Date: 08/16/18 Discharge Date: Expected LOS: 2 Initial Reviewer: [email or web address] Initial Review Date: 08/14/2018 Generated: 08/21/18 2:35 pm Comments DCP- Discharge Planning Updated by [email or web address]: Astrid Bullard on 08/21/18 12:[address] Patient Name: BEBETO LINN Encounter No: [id number] : 1965 Primary Insurance: MEDICAID [place] Anticipated DC Date: 08-16-2018 Planned Disposition: Home External Planned Provider: : DCP follow-up note: Patient and family in agreement with discharge plan. No changes to plan. I faxed clinical to [facility] and spoke with Jerica, she states they will see him tomorrow. Home today with [facility]. Case management will follow and assist as needed. Astrid Bullard DCP- Discharge Planning Updated by [email or web address]: Nicole Marie on 08/19/18 6:[address] LATE ENTRY 1030 PATIENT HAS BEEN SEEN BY WOUND CARE NURSE FOR OSTOMY TEACHING. SHE ALSO PROVIDED HIM WITH A LIST OF OSTOMY CARE SUPPLIERS. PRELIMINARY HOME HEALTH REFERRAL HAS BEEN FORWARDED. WILL CALL [facility] WHEN THE PATIENT IS DISCHARGED AND FAX DISCHARGE INSTRUCTIONS. DCP- Discharge Planning Updated by [email or web address]: Astrid Bullard on 08/18/18 11:[address] with Dr. Lizama, he would like patient set up with home health for ostomy care/teaching. I spoke with the patient and he would like [facility] again. States he had them in January after knee surgery. I asked for 2nd choice if they are unable to see him tomorrow and he said "No, I only want [facility] and it's ok if they cannot come out tomorrow. " Dr. Lizama is the one that wants me to have it, I don't think I need it. [facility] signed for [facility]. I spoke with Charmaine and clinical faxed. They will see him Tuesday. She states if an opening becomes available tomorrow, they will see him tomorrow. CM will continue to follow and assist with discharge planning/needs. DCP- Discharge Planning Updated by [id number]: Rhiannon Krishnamurthy on 08/14/18 10:[address] Patient Name: BEBETO LINN Admission Status: ER Accout number: [id number] Admission Date: 08-14-2018 : 1965 Admission Diagnosis: Attending: DIALLO MADRID Current LOS: 1 Anticipated DC Date: 08-16-2018 Planned Disposition: Home Primary Insurance: MEDICAID [place] Discharge Planning Comments: CM met with patient to complete initial dc planning assessment. CM educated patient on the CM role and verbal consent given by patient to complete assessment. CM verified patient's address, phone number, and emergency contact phone numbers. Patient lives at home alone and reports he is independent with his ADL's and IADL's. At discharge patient plans to return home alone and feels this is a safe discharge if he does not have to have surgery. CM discussed availability of home health, rehab services, and medical equipment. Patient denied known discharge needs at this time unless he has to have surgery. Patient reports his friend, Ross Lynn, will transport him/her home at time of discharge. CM will continue to follow and will assist as needed with dc plans/needs. Welding Machine Feeder: Rhiannon Krishnamurthy RN, [facility] DCPIA - Discharge Planning Initial Assessment Updated by [email or web address]: Rhiannon Krishnamurthy on 08/14/18 10:59 am * Is the patient Alert and Oriented? Yes * How many steps to enter\\exit or inside your home? * PCP Dr. Aleman * Pharmacy [facility] on [address] * Preadmission Environment Home Alone * ADLs Independent * Equipment Oxygen Rolling Walker * Other Equipment Walker with portability. He is unsure who his O2 company is. * List name and contact numbers for known caregivers / representatives who currently or will assist patient after discharge: Ross Lynn - friend/transportation at [facility] [phone] * Verbal permission to speak to the caregivers and representatives has been obtained from the patient. Yes * Community resources currently utilized Other * Additional services required to return to the preadmission environment? No * Can the patient safely return to the preadmission environment? Yes * Has this patient been hospitalized within the prior 30 days at any hospital? Yes Coverage Notice Reviewer: [email or web address] Chadd Astrid Aleah Notice Issued Date-Time: 08/18/2018 12:42 Notice Type: Patient Choice Letter Notice Delivered To: Patient Relationship to Patient: Switchman Name: Delivery Method: HAND - Hand Delivered Colleen Days: Prior Verbal Notification: Recipient Understood Notice: Yes Recipient Signature: Yes Med Rec Note Co-signed by Attending: Coverage Notice Comment: KAYLEN for [facility] Last DP export: 08/19/18 6:12 pm Patient Name: BEBETO LINN Page [phone] at 1336 All edits/amendments must be made on the electronic document DICTATION DATE: 08/21/185 FINANCIAL PLANNING ADVISER: JAYSON 08/21/18 1335 RPT#: [id number] HI DATE: STATUS: ADM IN [facility] [address] [place] [address] END OF REPORT
--- NOTE | 2018-08-22 14:52 | MORECARE ---
CASE MANAGEMENT DISCHARGE SUMMARY PATIENT: BEBETO LINN UNIT: [id number] ADM DATE: 08/14/18 AGE: 52 : 69 SEX: M ROOM/BED: D.2235 AUTHOR: SANDRADOC PHYSICIAN: REFERRING PHYSICIAN: DIALLO CASTILLO MD DATE OF SERVICE: 08/22/18 Discharge Plan Patient Name: BEBETO LINN Facility: [facility]:[place] : 1965 Planned Disposition: Home Anticipated Discharge Date: 08/16/18 Discharge Date: 08/21/2018 Expected LOS: 2 Initial Reviewer: [email or web address] Initial Review Date: 08/14/2018 Generated: 08/22/18 3:52 pm Comments DCP- Discharge Planning Updated by [id number]: Astrid Bullard on 08/21/18 12:[address] Patient Name: BEBETO LINN Encounter No: [id number] : 1965 Primary Insurance: MEDICAID [place] Anticipated DC Date: 08-16-2018 Planned Disposition: Home External Planned Provider: : DCP follow-up note: Patient and family in agreement with discharge plan. No changes to plan. I faxed clinical to [facility] and spoke with Jerica, she states they will see him tomorrow. Home today with [facility]. Case management will follow and assist as needed. Astrid Bullard DCP- Discharge Planning Updated by [email or web address]: Nicole Marie on 08/19/18 6:[address] LATE ENTRY 1030 PATIENT HAS BEEN SEEN BY WOUND CARE NURSE FOR OSTOMY TEACHING. SHE ALSO PROVIDED HIM WITH A LIST OF OSTOMY CARE SUPPLIERS. PRELIMINARY HOME HEALTH REFERRAL HAS BEEN FORWARDED. WILL CALL [facility] WHEN THE PATIENT IS DISCHARGED AND FAX DISCHARGE INSTRUCTIONS. DCP- Discharge Planning Updated by [email or web address]: Astrid Bullard on 08/18/18 11:[address] with Dr. Lizama, he would like patient set up with home health for ostomy care/teaching. I spoke with the patient and he would like [facility] again. States he had them in January after knee surgery. I asked for 2nd choice if they are unable to see him tomorrow and he said "No, I only want [facility] and it's ok if they cannot come out tomorrow. " Dr. Lizama is the one that wants me to have it, I don't think I need it. [facility] signed for [facility]. I spoke with Charmaine and clinical faxed. They will see him Tuesday. She states if an opening becomes available tomorrow, they will see him tomorrow. CM will continue to follow and assist with discharge planning/needs. DCP- Discharge Planning Updated by [id number]: Rhiannon Krishnamurthy on 08/14/18 10:[address] Patient Name: BEBETO LINN Admission Status: ER Accout number: [id number] Admission Date: 08-14-2018 : 1965 Admission Diagnosis: Attending: DIALLO MADRID Current LOS: 1 Anticipated DC Date: 08-16-2018 Planned Disposition: Home Primary Insurance: MEDICAID [place] Discharge Planning Comments: CM met with patient to complete initial dc planning assessment. CM educated patient on the CM role and verbal consent given by patient to complete assessment. CM verified patient's address, phone number, and emergency contact phone numbers. Patient lives at home alone and reports he is independent with his ADL's and IADL's. At discharge patient plans to return home alone and feels this is a safe discharge if he does not have to have surgery. CM discussed availability of home health, rehab services, and medical equipment. Patient denied known discharge needs at this time unless he has to have surgery. Patient reports his friend, Ross Lynn, will transport him/her home at time of discharge. CM will continue to follow and will assist as needed with dc plans/needs. Railway Signalling Engineer: Rhiannon Krishnamurthy RN, [facility] DCPIA - Discharge Planning Initial Assessment Updated by [email or web address]: Rhiannon Krishnamurthy on 08/14/18 10:59 am * Is the patient Alert and Oriented? Yes * How many steps to enter\\exit or inside your home? * PCP Dr. Aleman * [facility]acy [facility] [address] * Preadmission Environment Home Alone * ADLs Independent * Equipment Oxygen Rolling Walker * Other Equipment Walker with portability. He is unsure who his O2 company is. * List name and contact numbers for known caregivers / representatives who currently or will assist patient after discharge: Ross Lynn - friend/transportation at dc- [phone] * Verbal permission to speak to the caregivers and representatives has been obtained from the patient. Yes * Community resources currently utilized Other * Additional services required to return to the preadmission environment? No * Can the patient safely return to the preadmission environment? Yes * Has this patient been hospitalized within the prior 30 days at any hospital? Yes Coverage Notice Reviewer: [id number] Chadd Bullard Notice Issued Date-Time: 08/18/2018 12:42 Notice Type: Patient Choice Letter Notice Delivered To: Patient Relationship to Patient: Buffer Automatic Name: Delivery Method: HAND - Hand Delivered Colleen Days: Prior Verbal Notification: Recipient Understood Notice: Yes Recipient Signature: Yes Med Rec Note Co-signed by Attending: Coverage Notice Comment: KAYLEN for [facility] Last DP export: 08/21/18 12:36 pm Patient Name: BEBETO LINN Page [id number] at 1452 All edits/amendments must be made on the electronic document DICTATION DATE: 08/22/181450 SEARCH COORDINATOR: JAYSON 08/22/18 145 RPT#: [id number] DC DATE:08/21/18 STATUS: DIS IN [facility] [address] [place] [address] END OF REPORT
== END 2018-08-21 16:15 | disposition home or self-care (01) | DRG 331 ==
LOC: D.ER 07:51 → D.EDHOLD 10:14 → D.MS 10:14
PROVIDERS: Family Medicine; Surgery; ADMIT Family Medicine Adult Medicine; ATTEND Family Medicine Adult Medicine
PROC: 0DBN0ZZ Excision of Sigmoid Colon, Open Approach (ICD-10-PCS; principal; 2018-08-15 12:00)
DX: K57.20 Diverticulitis of large intestine with perforation and abscess without bleeding (principal); J44.9 Chronic obstructive pulmonary disease, unspecified; F41.8 Other specified anxiety disorders; F10.10 Alcohol abuse, uncomplicated

== ENCOUNTER 2018-09-24 12:02 | Emergency (ER) | payer MEDICAID ==
[~2018-09-24] VITALS: Ht 180.3 cm; Wt 75.7 kg
[~2018-09-24 12:02] MED LIST changes: +PERCOCET 10-321 EAC1 PO
[2018-09-24 12:06] VITALS: BP 112/70; Ht 180.3 cm; Wt 75.7 kg
== END 2018-09-24 13:00 | disposition home or self-care (01) ==
LOC: D.ER 12:02
DX: K94.09 Other complications of colostomy (principal)

== ENCOUNTER 2018-10-10 05:40 | Inpatient (IN) | payer MEDICAID ==
[2018-10-09 12:29] LABS: BASOPHILS 0.3 % (0-2); EOSINOPHILS 2.4 % (0-7); HEMATOCRIT 42.9 % (42.0-54.0); IMMATURE GRANULOCYTES 0.2 % (0-5); LYMPHOCYTES 27.5 % (15-50); MCH 35.6 pg (26.0-34.0); MCV 101.9 fL (80.0-100.0); MEAN PLATELET VOLUME 9.7 fL (7.4-10.4); MONOCYTES 8.1 % (2-11); NEUTROPHILS 61.5 % (40-80); RBC 4.21 10x6/uL (4.20-6.10); RDW 14.1 % (11.5-14.5); WBC 5.9 10x3/uL (4.8-10.8)
[2018-10-09 12:30] LABS: PLATELET COUNT 198 10x3/uL (130-400)
[2018-10-09 12:35] LABS: CALC OSMOLALITY 279 mosm/kg (275-300); CALCIUM 9.4 mg/dL (8.5-10.1); CARBON DIOXIDE 28.1 mmol/L (21.0-32.0); CHLORIDE - SERUM 104 mmol/L (98-107); GLUCOSE 100 mg/dL (74-106); POTASSIUM - SERUM 4.3 mmol/L (3.5-5.1); SODIUM 140 mmol/L (136-145); UREA NITROGEN 15 mg/dL (7-18); eGFR NON AFRICAN AMERICAN 84 mL/min (90-120)
[~2018-10-10] VITALS: Ht 180.3 cm; Wt 96.2 kg
[2018-10-10 06:40] VITALS: BP 117/87; BMI 25.3
--- NOTE | 2018-10-10 11:39 | NUR ---
PATIENT CONINUES TO C/O PAIN 6/10 ON PAIN SCALE HOWEVER IS INTERMITTENTLY SLEEPING. OK TO D/C PER ANESTHEISA TO FLOOR AT THIS TIME. PATIENT HAS HOISTING ENGINE OPERATOR ORDERS FOR FLOOR.
[2018-10-10 12:00] VITALS: BP 119/80
[2018-10-10 12:06] VITALS: BP 119/80; BMI 25.1
--- NOTE | 2018-10-10 14:52 | NUR ---
PT REQUESTING MORE PAIN MEDS. STATED HE FORGOT HE HAD THE WRECKER OPERATOR PUMP WHEN REMINDED TO PUSH THE BUTTON.
[2018-10-10 17:30] VITALS: BP 111/82
--- NOTE | 2018-10-10 19:48 | NUR ---
REC'D. CHGE OF SHIFT SITTING ON SIDE OF BED.AAOX3.MIDLINE ABDOMINAL DRSG. DRY AND INTACT.SCD'S INTACT BILAT.LI PATENT AND DRAINING STRAW YELLOW URINE.1/2 CUP ICE GIVEN .REINFORCED NPO EXCEPT ICE VOICES UNDERSTANDING. WILL CONTINUE TO MONITOR FOR ANY CHGES AND FOLLOW CURRENT PLAN OF CARE.
[2018-10-10 20:00] VITALS: BP 105/75
[2018-10-11] VITALS: BP 131/75
[2018-10-11 04:00] VITALS: BP 103/72
--- NOTE | 2018-10-11 04:19 | NUR ---
I have reviewed this patient and I concur with the Shift Assessment completed by the Licensed Practical Nurse today this shift.
[2018-10-11 06:59] LABS: CALC OSMOLALITY 271 mosm/kg (275-300); CALCIUM 8.3 mg/dL (8.5-10.1); CARBON DIOXIDE 27.1 mmol/L (21.0-32.0); CHLORIDE - SERUM 102 mmol/L (98-107); CREATININE - SERUM 1.1 mg/dL (0.6-1.3); GLUCOSE 121 mg/dL (74-106); POTASSIUM - SERUM 4.7 mmol/L (3.5-5.1); SODIUM 135 mmol/L (136-145); UREA NITROGEN 14 mg/dL (7-18); eGFR NON AFRICAN AMERICAN 75 mL/min (90-120)
--- NOTE | 2018-10-11 07:20 | NUR ---
PT RESTING IN BED, ALERT AND ORIENTED. POD #1 COLOSTOMY REVERSAL. NO C/O PAIN, DILAUDID MIDDLE SCHOOL FOOTBALL COACH MANAGING PAIN. NO S/S OF ACUTE DISTRESS NOTED. NPO EXCEPT ICE CHIPS. SCDS PRESENT. LI CATHETER PRESENT. MIDLINE INCISION, DRESSING C/D/I. ON 2L O2, NC. IV TO RIGHT AC, NS INFUSING @ 125ML/HR. UP WITH ASSIST. C/O NAUSEA, GAVE ZOFRAN PER PHYSICIAN'S ORDERS. PT DENIES ANYTHING FURTHER AT THIS TIME. CALL LIGHT IN REACH. WILL CONTINUE TO MONITOR.
[2018-10-11 07:46] LABS: BASOPHILS 0.1 % (0-2); EOSINOPHILS 0 % (0-7); IMMATURE GRANULOCYTES 0.1 % (0-5); LYMPHOCYTES 15.3 % (15-50); MCHC 33.7 g/dL (31.0-37.0); MCV 101.1 fL (80.0-100.0); MEAN PLATELET VOLUME 9.4 fL (7.4-10.4); MONOCYTES 10.4 % (2-11); NEUTROPHILS 74.1 % (40-80); PLATELET COUNT 186 10x3/uL (130-400); RDW 13.9 % (11.5-14.5)
[2018-10-11 07:53] LABS: HEMATOCRIT 28.5 % (42.0-54.0); RBC 2.82 10x6/uL (4.20-6.10); WBC 9.2 10x3/uL (4.8-10.8)
[2018-10-11 08:00] LABS: HEMOGLOBIN 9.6 g/dL (13.5-17.5)
[2018-10-11 08:35] VITALS: BP 110/70
--- NOTE | 2018-10-11 10:45 | NUR ---
DISCONTINUED LI CATHETER PER PHYSICIAN ORDERS. PT VOIDED 130ML IMMEDIATELY AFTER DISCONTINUING LI.
[2018-10-11 12:49] VITALS: BP 98/62
[2018-10-11 14:01] VITALS: Ht 180.3 cm; Wt 96.2 kg
[2018-10-11 16:07] VITALS: BP 87/48
--- NOTE | 2018-10-11 18:51 | NUR ---
PT RESTING IN BED, ALERT AND ORIENTED. NO C/O PAIN. NO S/S OF ACUTE DISTRESS NOTED. CALL LIGHT IN REACH. PT DENIES ANYTHING FURTHER AT THIS TIME. WILL CONTINUE TO MONITOR.
--- NOTE | 2018-10-11 19:50 | NUR ---
PT SITTING UP IN BED WITHOUT DISTRESS, ALERT AND ORIENTED. STATES PAIN 5/10 WITH DILAUDID TRANSPORTATION INSPECTOR. IV RIGHT AC INFUSING NS @ 125. MIDLINE ABD INCISION WITH DRESSING CDI. USING URINAL TO VOID. PT STATES HE IS NAUSEAS, GAVE ZOFRAN ORDERED. PT EATING SMALL CUP OF ICE CHIPS. DENIES PASSING GAS. SCDS ON BILAT. DENIES OTHER NEEDS. CL IN REACH, WILL CTM
[2018-10-11 20:00] VITALS: BP 109/58
--- NOTE | 2018-10-11 22:00 | NUR ---
PT COMPLAINS OF ITCHING ALL OVER THAT STARTED YESTERDAY. NO REDNESS OR HIVES PRESENT. REQUESTED MEDICATION TO STOP ITCHING. SPOKE WITH DR. ZHAO. ORDERS TO GIVE BENADRYL 25MG PO Q4PRN. GAVE ORDERED. PT DENIES OTHER NEEDS
[2018-10-12] VITALS: BP 103/63
[2018-10-12 04:00] VITALS: BP 98/55
[2018-10-12 05:12] LABS: BASOPHILS 0.2 % (0-2); EOSINOPHILS 1.2 % (0-7); HEMOGLOBIN 7.7 g/dL (13.5-17.5); IMMATURE GRANULOCYTES 0.2 % (0-5); MCH 34.7 pg (26.0-34.0); MCHC 34.2 g/dL (31.0-37.0); MCV 101.4 fL (80.0-100.0); MEAN PLATELET VOLUME 9.7 fL (7.4-10.4); MONOCYTES 9.5 % (2-11); NEUTROPHILS 69.9 % (40-80); PLATELET COUNT 151 10x3/uL (130-400); RDW 13.9 % (11.5-14.5)
[2018-10-12 05:27] LABS: HEMATOCRIT 22.5 % (42.0-54.0); RBC 2.22 10x6/uL (4.20-6.10)
[2018-10-12 05:46] LABS: CALC OSMOLALITY 267 mosm/kg (275-300); CALCIUM 8.1 mg/dL (8.5-10.1); CHLORIDE - SERUM 103 mmol/L (98-107); GLUCOSE 71 mg/dL (74-106); SODIUM 136 mmol/L (136-145); UREA NITROGEN 7 mg/dL (7-18)
[2018-10-12 05:47] LABS: CREATININE - SERUM 0.8 mg/dL (0.6-1.3); POTASSIUM - SERUM 3.4 mmol/L (3.5-5.1); eGFR NON AFRICAN AMERICAN > 90 mL/min (90-120)
--- NOTE | 2018-10-12 06:30 | NUR ---
PAGED AND SPOKE WITH DR. ZHAO ABOUT H&H RESULTS THIS AM. PT ABD MORE DISTENDED AND FIRM THIS AM. PAIN NOW RATES PAIN 7/10 WHEREAS IT HAS BEEN 5/10 THROUGH THE NIGHT. INCISION CDI. COLOR WNL. NO NAUSEA THIS TIME. REPORTS NO GAS OR BM YET. BOWEL SOUNDS ACTIVE X4. DR ZHAO STATED TO KEEP NPO AND HE WOULD SPEAK WITH DR SUAZO.
--- NOTE | 2018-10-12 09:03 | OP ---
PATIENT NAME: BEBETO LINN MEDICAL RECORD: [id number] :[birth year] LOCATION:D.MS [id number] ADMISSION DATE:10/10/18 SURGEON: TRA SUAZO MD DATE OF OPERATION: 10/10/2018 PREOPERATIVE DIAGNOSES: 1. Colostomy. 2. Chronic obstructive pulmonary disease. 3. Tobacco dependence syndrome. 4. Anxiety. POSTOPERATIVE DIAGNOSES: 1. Colostomy. 2. Chronic obstructive pulmonary disease. 3. Tobacco dependence syndrome. 4. Anxiety. PROCEDURE: Colostomy takedown. SURGEON: Tra Suazo MD REPORT OF PROCEDURE: The patient's abdomen was prepped and draped in sterile fashion. The patient's indwelling colostomy was taken down by coring out the tissue around the ostomy until we entered the peritoneal cavity. Once we had done this, then the ostomy was just pulled up and left out of our way. We then opened up the lower midline incision using a 10-blade and then using electrocautery it came down through the subcutaneous tissues and fascia and entered the abdominal cavity. An Gopi retractor was inserted. We were able to push the small bowel out of the way and we were able to find the proximal end of the rectum where a Prolene suture had been placed. The rectum was dissected free from its surrounding inflammatory attachments using sharp dissection and electrocautery. Once we had the rectum freed up in all directions, then we could see that the remaining distal end of the colon would rest easily in the pelvis. We transected the colon and took down the mesentery using sequential clamp and tie technique with 3-0 silks. We then opened up the proximal end of the rectum. We then performed an end-to-end anastomosis with running 3-0 Vicryls and an outer layer of Lemberted 3-0 silks on the superior and lateral aspects of the anastomosis. At the conclusion of the case, we had air instilled through the rectum with the anastomosis under water and there was no evidence of a leak. We then irrigated out the abdomen thoroughly with normal saline and assured there was no sign of any bleeding. The midline fascia was then closed with running #1 loop PDS times 2. The subcutaneous tissues were reapproximated with interrupted 2-0 Vicryl. The fascia at the ostomy site was then freed up and reapproximated transversely using multiple interrupted 0 Prolenes. The subcutaneous tissues and skin were then reapproximated with a 2-0 Vicryl in a pursestring fashion. We then closed the midline incision with steven and dressed the wounds appropriately. COMPLICATIONS: None. CONDITION: Stable. ANESTHESIA: General endotracheal. BLOOD LOSS: 200 mL. OPERATIVE REPORT [id number] BEBETO LINN TRANSINT:[id number] Voice Confirmation ID: [id number] DOCUMENT ID: [id number] TRA SUAZO MD at 0903 CC: LIAM ELKINS [id number] DICTATION DATE: 10/10/18 1051 HEALTH INFORMATION TECHNOLOGIST: 10/10/18 1212 ADM IN [facility] [address] [place] [id number]
[2018-10-12 09:09] VITALS: BP 108/64
[2018-10-12 13:17] LABS: HEMATOCRIT 23.8 % (42.0-54.0); HEMOGLOBIN 8.1 g/dL (13.5-17.5)
[2018-10-12 13:28] VITALS: BP 124/71
--- NOTE | 2018-10-12 14:41 | MORECARE ---
CASE MANAGEMENT DISCHARGE SUMMARY PATIENT: BEBETO LINN UNIT: [id number] ADM DATE: 10/10/18 AGE: 52 : [birth year] SEX: M ROOM/BED: D.2230 AUTHOR: PARAMJIT FLORES PHYSICIAN: REFERRING PHYSICIAN: MANNY SUAZO MD DATE OF SERVICE: 10/12/18 Discharge Plan Patient Name: BEBETO LINN Facility: [facility]:[place] : 1965 Planned Disposition: Home Anticipated Discharge Date: Discharge Date: Expected LOS: Initial Reviewer: [email or web address] Initial Review Date: 10/12/2018 Generated: 10/12/18 3:41 pm DCPIA - Discharge Planning Initial Assessment Updated by [email or web address]: Astrid Bullard on 10/12/18 2:40 pm * Is the patient Alert and Oriented? Yes * How many steps to enter\exit or inside your home? 8/0 * PCP Dr. Aleman * Pharmacy [facility] on [facility] * Preadmission Environment Home Alone * ADLs Independent * Equipment Bedside Commode Other Oxygen Walker * Other Equipment Portable oxygen * List name and contact numbers for known caregivers / representatives who currently or will assist patient after discharge: Ross Leah - friend - [phone] Fabio Ng - tai * Verbal permission to speak to the caregivers and representatives has been obtained from the patient. Yes * Community resources currently utilized None * Additional services required to return to the preadmission environment? No * Can the patient safely return to the preadmission environment? Yes * Has this patient been hospitalized within the prior 30 days at any hospital? No Patient Name: BEBETO LINN Page 64115 at 1441 All edits/amendments must be made on the electronic document DICTATION DATE: 10/12/18 144 ASSOCIATE DIRECTOR: JAYSON 10/12/18 1440 RPT#: [id number] DC DATE: STATUS: ADM IN [facility] [address] [place] [address] END OF REPORT
--- NOTE | 2018-10-12 14:53 | MORECARE ---
CASE MANAGEMENT DISCHARGE SUMMARY PATIENT: BEBETO LINN UNIT: [id number] ADM DATE: 10/10/18 AGE: 52 : 69 SEX: M ROOM/BED: D.2230 AUTHOR: SANDRA,DOC PHYSICIAN: REFERRING PHYSICIAN: MANNY SUAZO MD DATE OF SERVICE: 10/12/18 Discharge Plan Patient Name: BEBETO LINN Facility: [facility]:[place] : 1965 Planned Disposition: Home Anticipated Discharge Date: Discharge Date: Expected LOS: Initial Reviewer: [email or web address] Initial Review Date: 10/12/2018 Generated: 10/12/18 3:53 pm Comments DCP- Discharge Planning Updated by [email or web address]: Astrid Bullard on 10/12/18 1:[address] Patient Name: BEBETO LINN Admission Status: Elective Accout number: [id number] Admission Date: 10-10-2018 : 1965 Admission Diagnosis: Attending: MANNY SUAZO Current LOS: 2 Anticipated DC Date: Planned Disposition: Home Primary Insurance: MEDICAID [place] CM met with patient to complete initial dc planning assessment. CM educated patient on the CM role and verbal consent given by patient to complete assessment. Patient lives at home alone. At discharge patient plans to return and feels this is a safe discharge. CM discussed availability of home health, rehab services, and medical equipment. Patient denied known discharge needs at this time. States he has had [facility] in the past, but does not need them at this time. States his friend (Fabio) will drive him home on discharge. CM will continue to follow and will assist as needed with dc plans/needs. Discharge Planning Comments: Uniformer: Astrid Bullard DCPIA - Discharge Planning Initial Assessment Updated by [email or web address]: Astrid Bullard on 10/12/18 2:40 pm * Is the patient Alert and Oriented? Yes * How many steps to enter\exit or inside your home? 8/0 * PCP Dr. Aleman * Pharmacy [facility] on [address] [facility] * Preadmission Environment Home Alone * ADLs Independent * Equipment Bedside Commode Other Oxygen Walker * Other Equipment Portable oxygen * List name and contact numbers for known caregivers / representatives who currently or will assist patient after discharge: Ross Lynn - friend - [phone] Fabio Ng - tai * Verbal permission to speak to the caregivers and representatives has been obtained from the patient. Yes * Community resources currently utilized None * Additional services required to return to the preadmission environment? No * Can the patient safely return to the preadmission environment? Yes * Has this patient been hospitalized within the prior 30 days at any hospital? No Last DP export: 10/12/18 1:41 p Patient Name: BEBETO LINN Page [id number] at 1453 All edits/amendments must be made on the electronic document DICTATION DATE: 10/12/181451 POTATO INSPECTOR: JAYSON 10/12/181451 RPT#: [id number] DC DATE: STATUS: ADM IN [address] [place] [address] END OF REPORT
--- NOTE | 2018-10-12 15:56 | NUR ---
PT RESTING IN BED. NO SIGNS OF DISTRESS.IV TO RIGHT AC PATENT NO REDNESS OR TENDERNESS. HAS INCISION AND PETEY TO MIDDLE OF ABDOMEN AND LEFT SIDE OF BELLY. ON 2L NC. DENIES ANY NEED AT THIS TIME. CALL LIGHT IN REACH. BED LOW POSITION. NO FAMILY AT BEDSIDE AT THIS TIME.
--- NOTE | 2018-10-12 19:40 | NUR ---
PT LYING IN BED RESTING WITHOUT DISTRESS. ALERT AND ORIENTED. IV RIGHT AC INFUSING NS @ 75 WITH DILAUDID MANAGER OF QUALITY. ABD DISTENDED WITH MIDLINE INCISION WITH PETEY CDI. SLIGHT REDNESS AROUND SITE. LLQ DRESSING CDI. PT STATES HE IS HAVING GAS PAIN 09/25. ENCOURAGED PT AMBULATE IN HALLWAY, PT STATES HE WILL AMBULATE AFTER HE RECIEVED SCHEDULED TORADOL. REFUSES SCDS AT THIS TIME. UP AD DMITRY TO BATHROOM, HAVING SMALL LIQUID BOWEL MOVEMENTS. WEARING O2 2L PRN. DENIES OTHER NEEDS. CL IN REACH, WILL CTM
[2018-10-12 20:38] VITALS: BP 124/48
--- NOTE | 2018-10-12 20:45 | NUR ---
PT AMBULATING IN HALLWAY INDEPENDENTLY WITHOUT DISTRESS
--- NOTE | 2018-10-13 03:20 | NUR ---
CALLED TO PT ROOM, PT STATES HE IS HAVING PAIN 7/10, STATES HE FEELS LIKE HE IS "ABOUT TO POP." ABD DISTENDED, LOWER ABD SOFT TO PALPATION BUT TENDER, UPPER ABD OVER STOMACH IS TIGHT. CHECK PT SUBSCRIPTION AGENT, HE HAS NOT PRESSED BUTTON MUCH TONIGHT PREVIOUS. BUTTON IS READY TO PRESS AT THIS TIME. TOLD PT IF HE WAS HAVING PAIN TO USE HIS SUBSCRIPTION AGENT. PT STATES HE DOES NOT WANT TO USE IT "TOO MUCH" THAT HE IS READY TO GO HOME. ENCOURAGED PT TO AMBULATE TO HELP WITH GAS IF HE WAS NOT GOING TO USE PAIN MEDICINE, PT STATES HE HURTS TOO BAD TO AMBULATE. ENCOURAGED PT TO USE SUBSCRIPTION AGENT TO GET PAIN UNDER CONTROL SO HE CAN AMBULATE. PT EVEN STATES WHEN HE GETS UP TO BATHROOM TO PASS GAS OR HAVE BM HE FEELS BETTER FOR 20-30 MINUTES AFTER AND THEN THE PAIN STARTS AGAIN. EDUCATED PT ON IMPORTANCE OF AMBULATING, PT STATES HE WILL LATER.
--- NOTE | 2018-10-13 05:06 | NUR ---
PT AMBULATED AROUND NURSES STATION X4
[2018-10-13 05:40] VITALS: BP 127/67
[2018-10-13 07:39] LABS: BASOPHILS 0.1 % (0-2); EOSINOPHILS 0.8 % (0-7); HEMATOCRIT 22.3 % (42.0-54.0); HEMOGLOBIN 7.6 g/dL (13.5-17.5); IMMATURE GRANULOCYTES 0.4 % (0-5); LYMPHOCYTES 11.5 % (15-50); MCH 33.9 pg (26.0-34.0); MCHC 34.1 g/dL (31.0-37.0); MCV 99.6 fL (80.0-100.0); MEAN PLATELET VOLUME 10.3 fL (7.4-10.4); MONOCYTES 6.3 % (2-11); NEUTROPHILS 80.9 % (40-80); RBC 2.24 10x6/uL (4.20-6.10); RDW 13.8 % (11.5-14.5); WBC 7.5 10x3/uL (4.8-10.8)
[2018-10-13 07:41] LABS: CALC OSMOLALITY 267 mosm/kg (275-300); CALCIUM 7.9 mg/dL (8.5-10.1); CARBON DIOXIDE 20.9 mmol/L (21.0-32.0); CHLORIDE - SERUM 101 mmol/L (98-107); CREATININE - SERUM 0.7 mg/dL (0.6-1.3); GLUCOSE 77 mg/dL (74-106); POTASSIUM - SERUM 3.3 mmol/L (3.5-5.1); SODIUM 136 mmol/L (136-145); eGFR NON AFRICAN AMERICAN > 90 mL/min (90-120)
[2018-10-13 07:43] LABS: UREA NITROGEN 4 mg/dL (7-18)
[2018-10-13 07:55] LABS: PLATELET COUNT 198 10x3/uL (130-400)
--- NOTE | 2018-10-13 08:00 | NUR ---
ALERT AND ORIENTED WITH CONTINUED ABDOMINCAL PAIN 12/26. BAROMETERS CALIBRATOR DILAUDID SET AT PRESCRIBED RATE. STABPLES INTACT TO ABDOMEN. IVF INFUSING AT PRESCRIBED RATE. DRESSING INTACT TO LLQ OF ABDOMEN HYPOACTIVE BS TO RUQ AND RLQ AND NORMAL TO LUQ AND LLQ. ENCOURAGED TO USE CALL LIGHT FOR ASSIST.
[2018-10-13 08:50] VITALS: BP 133/77
[2018-10-13 12:57] VITALS: BP 127/70
--- NOTE | 2018-10-13 14:31 | NUR ---
NUTRITION F/U PT REPORTS TOLERATING FULL LIQUID DIET YESTERDAY AND THIS AM. NOW WITH NAUSEA AND COULD NOT EAT LUNCH. WILL CONTINUE TO PROVIDE DIET, MONITOR PO INTAKE. RD FOLLOWING
[2018-10-13 16:58] VITALS: BP 116/68
[2018-10-13 20:22] VITALS: BP 132/83
--- NOTE | 2018-10-13 20:33 | NUR ---
PT ACCIDENTLY PULLED OUT IV. WILL RESTART OTHER ONE.
--- NOTE | 2018-10-13 22:05 | NUR ---
A FEW NURSES TRIED TO RESTART IV FOR PT, THREE UNSUCCESSFUL ATTEMPTS.
--- NOTE | 2018-10-13 22:35 | NUR ---
RESTARTED IV RT AC 22G BY BONITA KEITH RN.
[2018-10-14 00:45] VITALS: BP 126/71
--- NOTE | 2018-10-14 02:45 | NUR ---
PT HAS SMALL AMOUNT OF DRAINAGE FROM ABD INCISION SITE.ASSESSED INCISION SITE, PETEY ARE INTACT. CONTINUE MONITOR CLOSELY.
[2018-10-14 05:19] LABS: BASOPHILS 0.1 % (0-2); EOSINOPHILS 1.3 % (0-7); HEMATOCRIT 23.2 % (42.0-54.0); HEMOGLOBIN 8.3 g/dL (13.5-17.5); IMMATURE GRANULOCYTES 0.3 % (0-5); LYMPHOCYTES 11.8 % (15-50); MCH 35.2 pg (26.0-34.0); MCHC 35.8 g/dL (31.0-37.0); MCV 98.3 fL (80.0-100.0); MEAN PLATELET VOLUME 9.4 fL (7.4-10.4); MONOCYTES 10.4 % (2-11); NEUTROPHILS 76.1 % (40-80); PLATELET COUNT 237 10x3/uL (130-400); RBC 2.36 10x6/uL (4.20-6.10); RDW 13.8 % (11.5-14.5)
[2018-10-14 05:29] LABS: CALC OSMOLALITY 262 mosm/kg (275-300); CALCIUM 8.2 mg/dL (8.5-10.1); CHLORIDE - SERUM 98 mmol/L (98-107); CREATININE - SERUM 0.7 mg/dL (0.6-1.3); GLUCOSE 72 mg/dL (74-106); SODIUM 133 mmol/L (136-145); eGFR NON AFRICAN AMERICAN > 90 mL/min (90-120)
[2018-10-14 05:31] LABS: UREA NITROGEN 6 mg/dL (7-18)
--- NOTE | 2018-10-14 06:42 | NUR ---
I have reviewed this patient and I concur with the Shift Assessment completed by the Licensed Practical Nurse today this shift.
[2018-10-14 08:42] VITALS: BP 130/79
--- NOTE | 2018-10-14 09:00 | NUR ---
ALERT AND ORIENTEDX4. CONTINUED NAUSEA WITH ZOFRAN GIVEN IVP. IVF AND HOTEL AND DINING ROOM CASHIER AT PRESCRIBED RATE. BS HYPOACTIVE X4. UP ADLIB.ENCOURAGED TO USE CALL LIGHT FOR ASSIST.
[2018-10-14 12:37] VITALS: BP 158/78
[2018-10-14 18:21] VITALS: BP 115/68
--- NOTE | 2018-10-14 19:20 | NUR ---
LYING IN BED. ALERT AND ORIENTED X4. IRRITABLE WITH STAFF. FLAT AFFECT. RATES PAIN 6 IN ABD. DRSG X2 NOTED TO ABD WITH OLD DRAINAGE NOTED AND MARKED. STATES HE HAD 2 LOOSE STOOLS TODAY AND PAIN IS WORSE WHEN HE HAS A BM. ABD DISTENDED AND FIRM. BS PRESENT X4 QUADS. NO EDEMA NOTED. AMBULATORY. RESP EVEN AND NONLABORED. ENCOURAGED COUGHING AND DEEP BREATHING. NS @ 75 ML/HR INFUSING IN RT AC WITH DILAUDID CLIENT SUPPORT PROFESSIONAL IN USE. NO DISTRESS. ANXIOUS. SR ELEVATED X2. CL IN REACH.
[2018-10-14 21:43] VITALS: BP 112/63
[2018-10-15] VITALS (15 sets, daily range): BP systolic 97–121; BP diastolic 58–76
--- NOTE | 2018-10-15 00:25 | NUR ---
ENCOURAGED COUGH AND DEEP BREATHING. ELEVATED TEMP NOTED DESPITE TYLENOL GIVEN EARLIER. SCHEDULED TYLENOL GIVEN AT THIS TIME. O2 @ 2L/NC.
--- NOTE | 2018-10-15 01:12 | NUR ---
C/O NAUSEA. MEDICATED WITH ZOFRAN AT THIS TIME. ICE PACKS ARE IN PLACE IN AXILLARY REGIONS TO DECREASE TEMP.
[2018-10-15 05:24] LABS: BASOPHILS 0.1 % (0-2); EOSINOPHILS 0.1 % (0-7); HEMOGLOBIN 8.2 g/dL (13.5-17.5); IMMATURE GRANULOCYTES 0.3 % (0-5); LYMPHOCYTES 7.8 % (15-50); MCH 34.6 pg (26.0-34.0); MCHC 35.7 g/dL (31.0-37.0); MEAN PLATELET VOLUME 9.2 fL (7.4-10.4); MONOCYTES 8.2 % (2-11); NEUTROPHILS 83.5 % (40-80); PLATELET COUNT 258 10x3/uL (130-400); RBC 2.37 10x6/uL (4.20-6.10); RDW 13.8 % (11.5-14.5); WBC 7.4 10x3/uL (4.8-10.8)
[2018-10-15 05:39] LABS: CALC OSMOLALITY 261 mosm/kg (275-300); CALCIUM 7.8 mg/dL (8.5-10.1); CARBON DIOXIDE 25.9 mmol/L (21.0-32.0); CHLORIDE - SERUM 98 mmol/L (98-107); CREATININE - SERUM 0.7 mg/dL (0.6-1.3); GLUCOSE 80 mg/dL (74-106); SODIUM 133 mmol/L (136-145); UREA NITROGEN 5 mg/dL (7-18); eGFR NON AFRICAN AMERICAN > 90 mL/min (90-120)
[2018-10-15 05:45] LABS: POTASSIUM - SERUM 2.9 mmol/L (3.5-5.1)
--- NOTE | 2018-10-15 09:00 | NUR ---
ALERT AND ORIENTED X4 WITH DRESSING CHANGED TO ABDOMEN PER DR. GUADALUPE WITH MEDERATE SERROUS EXUDATE NOTED WITH PACKING APPLIED AND REINFORCED WITH 4X4. LIGHT RAIL TRANSIT OPERATOR TO BE DISCONTINUED PER ORDER. PT UP AD DMITRY AND AMBULATING IN HALLWAY. ABDOMEN SOFT WITH BS NOTED. IV TO LT. F/A W/O ANY S/S OF INFECTION/ INFILTRATION.BS NOTED X4. ENCOURAGED TO USE CALL LIGHT FOR ASSIT.
--- NOTE | 2018-10-15 13:00 | NUR ---
CALLED TO PT. ROOM WITH NURSES PRESENT HOLDING ABDOMINAL PRESSURE TO LOWER ABDOMINAL INCISION SITE. PT STATED VOMITED AND STARTED BLEEDING. DR COLLINS CAMBPELL.
--- NOTE | 2018-10-15 13:05 | NUR ---
B/P 164/126 PT HR 135 RESP. 26 O2 10 LITERS NRB WITH PUSE OX 79%. PT HAS COPIOUS AMOUT OF BLOOD COMING FROM SURGICAL SITE. PRESSURE APPLIED TO LOWER ABDOMEN WITH MOTTILING NOTED TO BLE AND PATIENT COMPLAINING OF CHEST DISCOMFORT. DR. GUADALUPE NOTIFIED OF CONDITION WITH ORDER FOR BLOOD TO TYPE AND CROSS AND INFUSE 2 UNITS STAT. RAPID RESPONSE CALLED.
--- NOTE | 2018-10-15 13:20 | NUR ---
DR. GUADALUPE HERE WITH ABDOMINAL INCISION PACKED WITH KERLEX AND SECURED WITH SURGICAL ADHESIVE PRESSURE TAPE WITH CONTINUED ABDOMINAL PRESSURE APPLIED. CONTINUED MONITORING WITH TELEMETRY B/P 130/79 HR. 130 PULSE OX. 92%. IST AND SECOND UNITS PRBC'S INFUSING AT THIS TIME. WITH ORDER TO CALL ANESTHESIA TO COME TO ROOM AND PREOP FOR EXPLORATORY LAPAROTOMY.
[2018-10-15 13:22] LABS: BASOPHILS 0.2 % (0-2); EOSINOPHILS 1.3 % (0-7); HEMATOCRIT 25.8 % (42.0-54.0); IMMATURE GRANULOCYTES 0.2 % (0-5); LYMPHOCYTES 25.6 % (15-50); MCH 34.2 pg (26.0-34.0); MCHC 34.9 g/dL (31.0-37.0); MCV 98.1 fL (80.0-100.0); MONOCYTES 6.9 % (2-11); NEUTROPHILS 65.8 % (40-80); PLATELET COUNT 305 10x3/uL (130-400); RBC 2.63 10x6/uL (4.20-6.10); RDW 13.7 % (11.5-14.5); WBC 5.2 10x3/uL (4.8-10.8)
--- NOTE | 2018-10-15 13:25 | NUR ---
PT GAVE VERBAL CONSENT AND WITNESSE X2 NURSES FOR CONSENT FOR SURGICAL PROCEDURE. PT AWAKE AND VERBALIZES PAIN AND DISCOMFORT. B/P 130/79 HR 110 PULSE OX 94%. CONTINUED ABDOMINAL PRESSURE AT THIS TIME WITH DR. GUADALUPE AT BEDSIDE.
--- NOTE | 2018-10-15 13:35 | NUR ---
B/P 140/74 118 26 PULSE OX 93%. CONTINUED ABDOMINAL PRESSURE SINUS TACH 118 PER MONITOR. EKG OBTAINED PRIOR. ATIVAN GIVEN PER ORDER FOR ANXIETY. 1ST AND 2ND UNITS BLOOD FINISHED WITH NS BOLUS CONTINUED.
--- NOTE | 2018-10-15 13:40 | NUR ---
FAMILY NOTIFIED OF PT CONDITION AND GOING TO SURGERY. ANESTHESIA HERE WITH PATIENT PREPED FOR SURGERY.
--- NOTE | 2018-10-15 13:50 | NUR ---
PT LEFT FOR SURGERY AND STABLE AT THIS TIME.
--- NOTE | 2018-10-15 14:15 | NUR ---
SECONDARY IV STARTED WITH NS BOLUS INFUSING. PT. LETHARGIC B/P 110/46 HR 130 RESP. 24 CONTINUED O2 100% NRB PULSE OX 89%. PT TYPED AND CROSSED WITH EKG OBTAINED. DR. GUADALUPE NOTIFIED AGAIN OF CONDITION AND STATED WAS ON HIS WAY WITH ORDER TO PREP FOR SUGERY.
--- NOTE | 2018-10-15 16:38 | NUR ---
PATIENT ARRIVED FROM VIA BED, AWAKE, ALERT AND ORIEMNTED. LUMBER TRIPPER PAIN MEDICATION SETUP AND INSTRUCTIONS GIVEN FOR USE OF PUMP, PATIENT VIOCES UNDERSTANDING. SCD PLACED, ALL DRESSINGS TO ABD CHECKED AND DRY AND INTACT.
--- NOTE | 2018-10-15 22:00 | NUR ---
REPORT RECEIVED. RECEIVED PATIENT IN BED, RESTING WITH EYES CLOSED. ROUSES EASILY TO VERBAL STIMULI. MONITORS CONNECTED TO PATIENT WITH ALARMS SET. VSS. NO ACUTE DISTRESS OBSERVED. CALL LIGHT IN REACH AND ABLE TO UTILIZE TO MAKE NEEDS KNOWN.
[2018-10-16] VITALS (23 sets, daily range): BP systolic 107–138; BP diastolic 61–84
--- NOTE | 2018-10-16 01:00 | NUR ---
RESTING WITH EYES CLOSED, EASILY ROUSED AND ALERT. VSS
[2018-10-16 03:48] LABS: BASOPHILS 0.2 % (0-2); EOSINOPHILS 0.4 % (0-7); HEMATOCRIT 26.8 % (42.0-54.0); HEMOGLOBIN 9.7 g/dL (13.5-17.5); IMMATURE GRANULOCYTES 0.4 % (0-5); LYMPHOCYTES 12.9 % (15-50); MCH 33.9 pg (26.0-34.0); MCHC 36.2 g/dL (31.0-37.0); MEAN PLATELET VOLUME 9.4 fL (7.4-10.4); MONOCYTES 8.8 % (2-11); NEUTROPHILS 77.3 % (40-80); PLATELET COUNT 262 10x3/uL (130-400); RBC 2.86 10x6/uL (4.20-6.10); RDW 15.5 % (11.5-14.5); WBC 5.4 10x3/uL (4.8-10.8)
[2018-10-16 03:50] LABS: MCV 93.7 fL (80.0-100.0)
[2018-10-16 04:00] LABS: CALC OSMOLALITY 269 mosm/kg (275-300); CALCIUM 7.4 mg/dL (8.5-10.1); CARBON DIOXIDE 27.6 mmol/L (21.0-32.0); CHLORIDE - SERUM 103 mmol/L (98-107); CREATININE - SERUM 0.8 mg/dL (0.6-1.3); GLUCOSE 81 mg/dL (74-106); SODIUM 137 mmol/L (136-145); UREA NITROGEN 5 mg/dL (7-18); eGFR NON AFRICAN AMERICAN > 90 mL/min (90-120)
--- NOTE | 2018-10-16 05:00 | NUR ---
RESTING WITH EYES CLOSED, EASILY ROUSED AND ALERT. VSS
--- NOTE | 2018-10-16 09:41 | NUR ---
Nutrition follow-up: Pt just advanced to full liquids Colostomy POD 1 Labs reviewed Wt: 180# RDN following.
--- NOTE | 2018-10-16 14:27 | NUR ---
PATIENT PULLED WOUND VAC SUCTION CONNECTION AWAY FROM THE DRESSING, ATTACHED A NEW SUCITON CONNECTION AND TESTED, NO LEAK DETECTED, WOUND VAC RUNNING AT PREVIOUS SETTING
--- NOTE | 2018-10-16 17:18 | NUR ---
PATIENT SPIKED A TEMP OF 101.6
--- NOTE | 2018-10-16 17:33 | NUR ---
UPDATE GIVEN TO DR. GUADALUPE, NEW ORDERS RECIEVED
[2018-10-17] VITALS (22 sets, daily range): BP systolic 16–123; BP diastolic 52–90
[2018-10-17 04:37] LABS: BASOPHILS 0.1 % (0-2); EOSINOPHILS 2.1 % (0-7); HEMATOCRIT 27.3 % (42.0-54.0); HEMOGLOBIN 9.6 g/dL (13.5-17.5); IMMATURE GRANULOCYTES 0.3 % (0-5); LYMPHOCYTES 6.9 % (15-50); MCH 33.1 pg (26.0-34.0); MCHC 35.2 g/dL (31.0-37.0); MCV 94.1 fL (80.0-100.0); MEAN PLATELET VOLUME 9.6 fL (7.4-10.4); MONOCYTES 6.8 % (2-11); NEUTROPHILS 83.8 % (40-80); RDW 15.2 % (11.5-14.5)
[2018-10-17 04:44] LABS: PLATELET COUNT 329 10x3/uL (130-400); WBC 7.8 10x3/uL (4.8-10.8)
[2018-10-17 04:49] LABS: CARBON DIOXIDE 31.3 mmol/L (21.0-32.0); CHLORIDE - SERUM 96 mmol/L (98-107); CREATININE - SERUM 0.9 mg/dL (0.6-1.3); GLUCOSE 80 mg/dL (74-106); SODIUM 133 mmol/L (136-145); eGFR NON AFRICAN AMERICAN > 90 mL/min (90-120)
[2018-10-17 05:09] LABS: CALC OSMOLALITY 262 mosm/kg (275-300); UREA NITROGEN 7 mg/dL (7-18)
[2018-10-17 05:10] LABS: POTASSIUM - SERUM 2.7 mmol/L (3.5-5.1)
--- NOTE | 2018-10-17 10:21 | NUR ---
0800 AM ASSESMENT IS COMPLETE PT IS AWAKE AND ALERT STATES PAIN IN BACK AND ABDOMEN.. BARTENDER HELPER FOR PAIN CONTROL.. CVL LEFT SC.. COLOSTOMY BAG IN PLACE WITH LIQUID STOOL EMPTIED AT THIS TIME 1560CC. PILO DRAINS X2 AND WOUND VAC TO LOWER ABDOMINAL INCISION SITES..FIRST BAG KCL HUNG 0900 DR FIGUEROA IN TO SEE PT.. VERBAL ORDER OK FOR TRANSFER TO FLOOR..2ND BAG KCL HUNG
--- NOTE | 2018-10-17 11:01 | NUR ---
1100 PT C/O NAUSEA AT THIS TIME.. SITTING UP IN THE BED... REQUETING ZOFRAN UNABLE TO ADMINISTER AT THIS TIME , TOO EARLY PER E MAR FROM LAST ADMINISTRATION... DEEP BREATHING TEACHNIQUES ENCOURAGED..
--- NOTE | 2018-10-17 14:55 | NUR ---
1200 ZOFRAN GIVEN PT CONTINUES WITH C/O NAUSEA AND PAIN... ABDOMEN IS DISTENDED AND FIRM TENDER TO TOUCH.. COLOSTOMY EMPTIES 350CC GREEN LIQUID.. 1[address] SUAZO CALLED WITH RESULTS OF KUB.. OK FOR NGT IF PATIENT WANTS ONE.. 1500 PT IS RESTING QUIETLY WITH EYES CLOSED AT THIS TIME..NO NGT WANTED AT THIS TIME..
--- NOTE | 2018-10-17 18:03 | NUR ---
1630 PT SLEEPING.. I AND O DONE.. 1645 PT AWAKE STATES HE FEELS SOME BETTER 1700 NO CHANGES TORDOL GIVEN..
--- NOTE | 2018-10-17 19:00 | NUR ---
REPORT RECEIVED. RECIEVED PATIENT IN BED, RESTING WITH EYES CLOSED. EASILY ROUSED AND ALERT. MONITORS CONNECTED TO PATIENT WITH ALARMS SET. VSS. SHIFT ASSESSMENT COMPLETED PER FLOW SHEET WITH NO ACUTE DISTRESS OBSERVED. CALL LIGHT IN REACH AND ABLE TO UTILIZE TO MAKE NEEDS KNOWN.
--- NOTE | 2018-10-17 21:00 | NUR ---
RESTING WITH EYES CLOSED, EASILY ROUSED AND ALERT. VSS
--- NOTE | 2018-10-17 23:00 | NUR ---
REASSESSMENT COMPLETED PER FLOW SHEET WITH NO ACUTE DISTRESS OBSERVED. VSS. CALL LIGHT IN REACH
[2018-10-18] VITALS (13 sets, daily range): BP systolic 97–129; BP diastolic 61–80
--- NOTE | 2018-10-18 01:00 | NUR ---
RESTING WITH EYES CLOSED, EASILY ROUSED AND ALERT. VSS
[2018-10-18 04:55] LABS: BASOPHILS 0.2 % (0-2); EOSINOPHILS 3.8 % (0-7); HEMATOCRIT 25.6 % (42.0-54.0); HEMOGLOBIN 8.8 g/dL (13.5-17.5); IMMATURE GRANULOCYTES 0.5 % (0-5); LYMPHOCYTES 6.7 % (15-50); MCH 32.1 pg (26.0-34.0); MCHC 34.4 g/dL (31.0-37.0); MCV 93.4 fL (80.0-100.0); MEAN PLATELET VOLUME 9.6 fL (7.4-10.4); MONOCYTES 8.5 % (2-11); NEUTROPHILS 80.3 % (40-80); PLATELET COUNT 317 10x3/uL (130-400); RBC 2.74 10x6/uL (4.20-6.10)
[2018-10-18 04:59] LABS: CALCIUM 7.9 mg/dL (8.5-10.1); CARBON DIOXIDE 32.2 mmol/L (21.0-32.0); CHLORIDE - SERUM 98 mmol/L (98-107); CREATININE - SERUM 0.8 mg/dL (0.6-1.3); GLUCOSE 72 mg/dL (74-106); SODIUM 135 mmol/L (136-145); WBC 9.8 10x3/uL (4.8-10.8); eGFR NON AFRICAN AMERICAN > 90 mL/min (90-120)
--- NOTE | 2018-10-18 05:00 | NUR ---
RESTING WITH EYES CLOSED, EASILY ROUSED AND ALERT. VSS
[2018-10-18 05:14] LABS: CALC OSMOLALITY 267 mosm/kg (275-300); POTASSIUM - SERUM 2.9 mmol/L (3.5-5.1); UREA NITROGEN 10 mg/dL (7-18)
--- NOTE | 2018-10-18 07:00 | NUR ---
AAOX4. RESTING IN BED. "I AM STARVING AND HUNGRY." EXPLAINED TO PT THE MD WOULD HAVE TO APPROVE A DIET CHANGE. NO S.S OF ACUTE DISTRESS. CL IN PLACE.
--- NOTE | 2018-10-18 08:36 | OP ---
PATIENT NAME: BEBETO LINN MEDICAL RECORD: [id number] :69 LOCATION:[facility] D.[id number] ADMISSION DATE:10/10/18 SURGEON: PENNY GUADALUPE MD DATE OF OPERATION: 10/15/2018 SURGEON: Penny Guadalupe MD PREOPERATIVE DIAGNOSIS: Postoperative fascial dehiscence. POSTOPERATIVE DIAGNOSES: Postoperative fascial dehiscence, colorectal anastomotic leak. PROCEDURE PERFORMED: Exploratory laparotomy with closure of colorectal anastomotic leak, abdominal washout, closure of fascial dehiscence, diverting loop ileostomy, and placement of a negative pressure wound therapy greater than 50 cm. ANESTHESIA: General. COMPLICATIONS: None. SPECIMENS: None. ESTIMATED BLOOD LOSS: 400 cc. Case was contaminated. OPERATIVE COURSE: After consent was obtained, I was called to the patient's bedside. They have noted the patient had an episode of coughing and several liters of bloody fluid emanated from the patient's midline incision consistent with a fascial dehiscence. The wound was probed lightly with a finger and noted that the fascia was no longer intact. After consent was obtained, the patient was taken to the operating room and placed in the supine position on the operating table. General anesthesia was given. A timeout was taken to confirm correct patient and procedure. The abdomen was prepped and draped in typical sterile fashion. Midline steven were removed. The sutures were intact, but had ripped through the fascia. At this time, the old sutures were removed and the incision was reopened. The abdomen was copiously irrigated and suctioned. An Gopi ring retractor was placed. There was no evidence of intra-abdominal bleeding. During abdominal washout, it was noted there was some stool pooling in the abdominal irrigation fluid. The colorectal anastomosis was examined. There was a small 1-2 mm area of anastomotic breakdown on the right lateral posterior portion of the anastomosis. This portion of the anastomosis was reinforced with 3-0 silk suture. There was no further leak. Two PILO drains were then placed into the pelvis, one drain on each side of the colorectal anastomosis and brought out through the left lower quadrant. At this time, a diverting loop ileostomy was performed. There was some inflammation and induration of the small bowel mesentery shortening it. A loop ileostomy was performed of approximately 10-12 cm proximal to the ileocecal valve. The ostomy site was created in the right lower quadrant and skin incision was made with the Harmonic scalpel. Subcutaneous tissues dissected with electrocautery. A cruciate incision was made in the anterior fascia. The muscles were gently spread with a blunt Sera. The peritoneum was incised with electrocautery. The small bowel loop was delivered through the incision and brought up to the skin surface. Again, the abdomen was copiously irrigated and suctioned. An Gopi OPERATIVE REPORT [id number] BEBETO LINN retractor was removed. The injured areas of the fascia were sharply dissected. The fascia was reclosed with #1 looped PDS. A wound VAC was cut to size and placed into the subcutaneous tissue and placed to suction with good seal. Next, the right lower quadrant diverting loop ileostomy was created in a Terire fashion. The loop of small bowel was opened and sutured with 3-0 Vicryl suture. An ostomy bag was placed at the end of the case. All needle and instrument counts were correct. The patient was transferred to the ICU in stable condition. TRANSINT:[id number] Voice Confirmation ID: [id number] DOCUMENT ID: [id number] PENNY GUADALUPE MD at 0836 CC: [id number] DICTATION DATE: 10/18/18 08 COGNOS ARCHITECT: 10/18/18 0826 ADM IN [place] [id number] [place] [address]
--- NOTE | 2018-10-18 09:00 | NUR ---
TOTAL BED CHANGE AND CHG BATH DONE. COLOSTOMY EMPTIED WITH 700ML OF BLACK LIQUID NOTED. NO S/S OF ACUTE DISTRESS. PT CO "I AM HUNGRY AND WANT SOME FOOD. THI IS BULLSHIT." EDUCATED PT WHY HE WAS NPO. PT "UNDERSTANDS". CL IN PLACE.
--- NOTE | 2018-10-18 11:00 | NUR ---
ASSISTED PT UP TO CHAIR IN ROOM. MINIMAL ASSIST NEEDED. CONTINUED TX FOR HYPOKALEMIA PER MD ORDERS. NO S/S OF ACUTE DISTRESS. CL IN PLACE.
--- NOTE | 2018-10-18 11:46 | NUR ---
Nutrition follow-up: Pt c/o of being hungry Diet: full liquids with Ensure Labs reviewed Wt: 212# Will continue to provide food choices and honor food preferences within diet restrictions. RDN following diet advancement and tolerance.
--- NOTE | 2018-10-18 13:30 | NUR ---
DC FC. PT URINATED RAYSA COLORED URINE. PILO DRAIN PULLED. DRESSING PLACED OVER DRAIN.CALL REPORT TO KILLIAN. TRANS PT AND BELONGINS TO 2208. NO S/S OF ACUTE DISTRESS. CL IN PLACE.
--- NOTE | 2018-10-18 14:15 | NUR ---
PT RECIEVED TO MED/SURG FLOOR. DENIES NEEDS AT THIS TIME. CL IN REACH. SIDE RAILS UP X2 FOR PT SAFETY. BED IN LOWEST POSITION
--- NOTE | 2018-10-18 15:22 | NUR ---
Ileostomy / RLQ : changed appliance/wafer with pts assistance. He had a colostomy prior to coming to hospital and is well educated on how to change appliance and care for his skin. Wound care will continue monitor.
--- NOTE | 2018-10-18 15:54 | NUR ---
Pt refused to allow me to change his wound vac dressing. After discussing what the dressing is, how it works and when it supposed to be changed, he agreed to let me change it Tuesday morning. Wound care continues to monitor.
[2018-10-19 00:46] VITALS: BP 119/73
[2018-10-19 05:06] VITALS: BP 117/69
[2018-10-19 06:13] LABS: BASOPHILS 0.4 % (0-2); EOSINOPHILS 2.9 % (0-7); HEMATOCRIT 25.2 % (42.0-54.0); HEMOGLOBIN 8.8 g/dL (13.5-17.5); IMMATURE GRANULOCYTES 0.9 % (0-5); LYMPHOCYTES 8.3 % (15-50); MCH 32.4 pg (26.0-34.0); MCHC 34.9 g/dL (31.0-37.0); MCV 92.6 fL (80.0-100.0); MEAN PLATELET VOLUME 9.6 fL (7.4-10.4); MONOCYTES 9.3 % (2-11); NEUTROPHILS 78.2 % (40-80); PLATELET COUNT 359 10x3/uL (130-400); RBC 2.72 10x6/uL (4.20-6.10); RDW 15.1 % (11.5-14.5); WBC 10.5 10x3/uL (4.8-10.8)
[2018-10-19 06:17] LABS: CALC OSMOLALITY 262 mosm/kg (275-300); CALCIUM 7.9 mg/dL (8.5-10.1); CHLORIDE - SERUM 99 mmol/L (98-107); CREATININE - SERUM 0.9 mg/dL (0.6-1.3); GLUCOSE 75 mg/dL (74-106); SODIUM 133 mmol/L (136-145); UREA NITROGEN 8 mg/dL (7-18); VANCOMYCIN - TROUGH 22.4 ug/mL (10.0-20.0); eGFR NON AFRICAN AMERICAN > 90 mL/min (90-120)
[2018-10-19 06:45] LABS: POTASSIUM - SERUM 2.8 mmol/L (3.5-5.1)
--- NOTE | 2018-10-19 07:20 | NUR ---
PT WOUND VACK LEAKING UNABLE TO STOP LEAK WITH MULTABLE ATEMPS. PT REFUSED ANY FUTHER ATEMPS OR FOR ANOUTHER NURSE TO LOOK AT IT. WOUND IS COVERED FOR WOUND VAC. lAB CALL POTASSIUM OF 2.8 THIS AM CALL TO DR. SUAZO OFFICE EXCEPTIONAL STUDENT EDUCATION AIDE DR GUADALUPE RETRUNED WITH NEW ORDERS OF POTASSIUM 40MEQ EVERY HOUR X2 PO. ONCOMMING NURSE AWARE OF NEW ORDERS AND WOUND VAC. WILL ADRESS.
--- NOTE | 2018-10-19 07:46 | NUR ---
PT RESTING IN BED. CO OF PAIN. DILAUDID SYRINGE EMPTY. CO OF BEING DISTENDED AND PASSING GAS FROM RECTUM. NO S/S OF ACUTE DISTRESS. CL IN PLACE.
[2018-10-19 08:30] VITALS: BP 123/78
--- NOTE | 2018-10-19 11:04 | NUR ---
Pts nurse called and stated the wound vac was alarming and reinforcing drape was not stopping it. On wound care arrival, Dr. Lizama was present and he removed the dressing. Wound beds look healthy. Measurements as follows: Left lower abdomen: 1.5cm x 2.5cm x 3.5cm Midline lower abdomen: 9cm x 4cm x 4.5cm Applied new dressing using 1 piece black sponge for midline abd, 1 piece black sponge for Left lower abdomen and 1 piece black sponge for pigtail. Pt tolerated well. -125mmhg low continuous Wound care continues to monitor.
[2018-10-19 12:55] VITALS: BP 106/66
[2018-10-19 16:38] VITALS: BP 116/73
--- NOTE | 2018-10-19 18:15 | NUR ---
PT RESTING IN BED. NO S/S OF ACUTE DISTRESS. CL IN PLACE.
[2018-10-19 20:00] VITALS: BP 117/80
[2018-10-20] VITALS: BP 137/62
[2018-10-20 04:00] VITALS: BP 113/68
[2018-10-20 04:48] LABS: BASOPHILS 0.2 % (0-2); EOSINOPHILS 1.6 % (0-7); HEMOGLOBIN 8.4 g/dL (13.5-17.5); IMMATURE GRANULOCYTES 1.3 % (0-5); LYMPHOCYTES 12.8 % (15-50); MCH 32.3 pg (26.0-34.0); MCV 92.3 fL (80.0-100.0); MEAN PLATELET VOLUME 9.7 fL (7.4-10.4); MONOCYTES 12.2 % (2-11); NEUTROPHILS 71.9 % (40-80); PLATELET COUNT 401 10x3/uL (130-400); RDW 15.2 % (11.5-14.5)
[2018-10-20 04:52] LABS: CALC OSMOLALITY 267 mosm/kg (275-300); CALCIUM 7.9 mg/dL (8.5-10.1); CARBON DIOXIDE 30.4 mmol/L (21.0-32.0); CHLORIDE - SERUM 99 mmol/L (98-107); CREATININE - SERUM 0.9 mg/dL (0.6-1.3); GLUCOSE 96 mg/dL (74-106); POTASSIUM - SERUM 3.1 mmol/L (3.5-5.1); SODIUM 135 mmol/L (136-145); UREA NITROGEN 7 mg/dL (7-18); eGFR NON AFRICAN AMERICAN > 90 mL/min (90-120)
--- NOTE | 2018-10-20 07:35 | NUR ---
AAOX4. ON 2LPM, VIA NC, EVEN UNLABORED BREATHING, C/O DISCOMFORT TO LEFT SIDE WHEN BREATHING IN, WOUND VAC TO LEFT SIDE, PILO DRAIN TO THE RIGHT SIDE WITH COLOSTOMY, DILAUDID GRAPHIC SPECIALIST AT 0.2/01/19. RUGHT SUBCLAVIAN, INFUSING NS AT 100ML/HR AND PROCAL AT 100ML/HR. DENIES ANY CURRENT NEEDS OR DISCOMFORTS, BED LOWERED AND LOCKED, CALL LIGHT WITHIN REACH. CPOC
[2018-10-20 08:38] VITALS: BP 121/73
--- NOTE | 2018-10-20 12:27 | NUR ---
C/O NAUSEA AND ABD DISCOMFORT. ADMINISTERED PRN ZOFRAN, ENCOURAGED PT TO USE PILLOW FOR SUPPORT AGANIST ABD WHILE MOVING AND REPOSITIONING. OFFERED DIFFERENT TEMPATURES OF FOOD TO SEE IF TOLERATES COLD OR HOT BETTER, REFUSED, POOR APPETITE. EMPTIED 150ML OR GREEN/MUCOUS STOOL FROM ILEOSTOMY. DENIES ANY CURRENT NEEDS OR DISCOMFORTS, BED LOWERED AND LOCKED, CALL LIGHT WITHIN REACH. CPOC
[2018-10-20 13:00] VITALS: BP 142/74
[2018-10-20 16:49] VITALS: BP 145/80
--- NOTE | 2018-10-20 18:50 | NUR ---
RECHECK TEMPATURE WAS 101.2 ORAL. SPOKE WITH BREVING. NO NEW ORDERS RECIEVED. CONTINUE TO MONITOR. KEEP GIVING TYLENOL AND APPLY COLD PACKS NEEDED AND USE ALL OTHER NON-PHARMALOGICAL MEASURES TO REDUCE FEVER. AT CURRENT TIME PATIENT REFUSES COLD RAGS/PACKS TO HEAD, TEMPATURE REDUCED IN ROOM, REMOVED ONE BLANKET FROM PATIENT, DENIES ANY CURRENT NEEDS OR DISCOMFORTS, BED LOWERED AND LOCKED, CALL LIGHT WITHIN REACH. CPOC
[2018-10-20 20:00] VITALS: BP 127/76
--- NOTE | 2018-10-20 20:23 | NUR ---
PT ALERT & ORIENTED. C/O PAIN 01/25. GAVE BOLUS THROUGH NETWORK LEAD OF DILAUDID 0.4 MG. PT TEMP STILL 100.1 - BROUGHT INCENTIVE SPIROMETER AND ENCOURAGED PT TO USE IT. PT SAYS HE "CAN'T" BECAUSE HE "CAN'T TAKE A DEEP BREATH BECAUSE IT HURTS TOO MUCH." EXPLAINED TO PT THAT THE I.S. WOULD HELP WITH THAT TOO. COMPLETE ASSESSMENT PER FLOW-SHEET. WILL REASSESS AND CONTINUE TO MONITOR.
[2018-10-21] VITALS: BP 138/82
[2018-10-21 04:00] VITALS: BP 125/75
[2018-10-21 06:21] LABS: CALC OSMOLALITY 267 mosm/kg (275-300); CALCIUM 8.3 mg/dL (8.5-10.1); CARBON DIOXIDE 31.5 mmol/L (21.0-32.0); CHLORIDE - SERUM 100 mmol/L (98-107); CREATININE - SERUM 0.9 mg/dL (0.6-1.3); GLUCOSE 95 mg/dL (74-106); POTASSIUM - SERUM 3.4 mmol/L (3.5-5.1); SODIUM 135 mmol/L (136-145); UREA NITROGEN 8 mg/dL (7-18); VANCOMYCIN - TROUGH 19.9 ug/mL (10.0-20.0); eGFR NON AFRICAN AMERICAN > 90 mL/min (90-120)
[2018-10-21 06:31] LABS: HEMATOCRIT 25.1 % (42.0-54.0); HEMOGLOBIN 8.5 g/dL (13.5-17.5); MCH 31.6 pg (26.0-34.0); MCHC 33.9 g/dL (31.0-37.0); MCV 93.3 fL (80.0-100.0); MEAN PLATELET VOLUME 9.9 fL (7.4-10.4); RBC 2.69 10x6/uL (4.20-6.10); RDW 15.4 % (11.5-14.5); WBC 13.1 10x3/uL (4.8-10.8)
[2018-10-21 06:33] LABS: PLATELET COUNT 489 10x3/uL (130-400)
[2018-10-21 06:57] LABS: ANISOCYTOSIS 1+; EOSINOPHILS 2 % (0-7); LYMPHOCYTES 10 % (15-50); MONOCYTES 9 % (2-11); NEUTROPHILS 78 % (40-80); PLATELET ESTIMATE INCREASED
[2018-10-21 08:47] VITALS: BP 121/80
[2018-10-21 12:34] VITALS: BP 124/78
[2018-10-21 16:58] VITALS: BP 137/80
--- NOTE | 2018-10-21 17:34 | NUR ---
abd distended and firm, new NPO status, placed sign on door, patient is aware that he is so consume nothing by mouth, but mouth care will be provided and may have sips of water with oral medications, denies any current questions or concerns, bed lowered and locked, call light within reach. cpoc
[2018-10-21 19:54] VITALS: BP 134/89
--- NOTE | 2018-10-21 22:42 | NUR ---
PT C/O NAUSEA. GAVE ZOFRAN 4 MG IV PUSH. EMPTIED 100 MLS DARK LIQUID STOOL FROM ILEOSTOMY. NO OTHER NEEDS. WILL CONTINUE TO MONITOR.
[2018-10-22 04:00] VITALS: BP 127/83
[2018-10-22 06:18] LABS: BASOPHILS 0.4 % (0-2); EOSINOPHILS 2.6 % (0-7); HEMATOCRIT 25.3 % (42.0-54.0); HEMOGLOBIN 8.6 g/dL (13.5-17.5); IMMATURE GRANULOCYTES 2.4 % (0-5); MCH 31.7 pg (26.0-34.0); MCV 93.4 fL (80.0-100.0); MEAN PLATELET VOLUME 10.1 fL (7.4-10.4); MONOCYTES 12.1 % (2-11); NEUTROPHILS 72.5 % (40-80); PLATELET COUNT 506 10x3/uL (130-400); RBC 2.71 10x6/uL (4.20-6.10); RDW 15.5 % (11.5-14.5)
[2018-10-22 06:33] LABS: CALC OSMOLALITY 264 mosm/kg (275-300); CALCIUM 8.2 mg/dL (8.5-10.1); CARBON DIOXIDE 28.9 mmol/L (21.0-32.0); CHLORIDE - SERUM 97 mmol/L (98-107); CREATININE - SERUM 0.8 mg/dL (0.6-1.3); GLUCOSE 92 mg/dL (74-106); POTASSIUM - SERUM 3.6 mmol/L (3.5-5.1); SODIUM 133 mmol/L (136-145); UREA NITROGEN 10 mg/dL (7-18); eGFR NON AFRICAN AMERICAN > 90 mL/min (90-120)
--- NOTE | 2018-10-22 09:06 | NUR ---
ALERT AND ORIENTED X 3. LUNGS CLEAR BILATERALLY IN ALL LOMELI. HEART SOUNDS S1 AND S2 HEARD IN ALL LOMELI. BOWEL SOUNDS ACTIVE X 4. ABD DISTENDED. WOUND VAC IN PLACE TO LOWER ABD. OSTOMY BAG TO RUQ EMPTIED DRAINING DARK GREEN/BROWN LIQUID STOOL. PILO DRAIN TO LLQ WITH MINIMAL SEROSANGUENOUS DRAINAGE. NEW SYRINGE PLACED IN DIALAUDID REHABILITATION NURSE. BED CHANGED D/T SOILED FROM STOOL. DENIES FURTHER NEEDS. BED LOW. CALL IRVIN AND PERSONAL ITEMS IN REACH. WILL CONTINUE TO MONITOR.
[2018-10-22 09:32] VITALS: BP 132/82
--- NOTE | 2018-10-22 10:56 | NUR ---
SLEEPING. WILL CONTINUE TO MONITOR.
--- NOTE | 2018-10-22 12:07 | NUR ---
BOLUS DOSE FROM SHAPER MACHINE HAND GIVEN PER REQUEST.
[2018-10-22 13:17] VITALS: BP 121/78
--- NOTE | 2018-10-22 13:37 | NUR ---
RESTING IN BED. DENIES NEEDS. WILL CONTINUE TO MONITOR.
--- NOTE | 2018-10-22 15:44 | NUR ---
SLEEPING. WILL CONTINUE TO MONITOR.
--- NOTE | 2018-10-22 15:46 | NUR ---
SPOKE WITH PRIVATE PILOT. PATIENT O2 LEVEL 88%. NOT WEARING O2. PRIVATE PILOT ASKED WHY PATIENT NOT WEARING O2. THREW OFF BP CUFF AND YELLED AT PRIVATE PILOT TO LEAVE.
--- NOTE | 2018-10-22 15:55 | NUR ---
SPOKE WITH PATIENT ABOUT CONCERNS. STATES "I KNOW I SHOULDN'T BE MEAN. I'M JUST HURTING." PATIENT WEARING OXYGEN NOW. O2 SAT 95% ON 3L. APOLOGIZED TO PATIENT ABOUT SITUATION. PATIENT APOLOGIZED AND DENIES FURTHER NEEDS. STATES JUST WANTS TO REST. WILL CONTINUE TO MONITOR.
[2018-10-22 17:11] VITALS: BP 134/69
--- NOTE | 2018-10-22 17:48 | NUR ---
SLEEPING. BED LOW. CALL IRVIN AND PERSONAL ITEMS IN REACH .
--- NOTE | 2018-10-22 19:50 | NUR ---
PT ALERT & ORIENTED. WORKING ON DRINKING HIS MAG CITRATE. RATES PAIN /10. SUPERVISOR FERTILIZER PROCESSING FOR PAIN CONTROL. ENCOURAGED INCENTIVE SPIROMETER. NO OTHER NEEDS. WILL CONTINUE TO MONITOR.
[2018-10-22 20:00] VITALS: BP 143/84
--- NOTE | 2018-10-22 22:37 | NUR ---
PT DRANK 1/2 OF BOTTLE OF THE MAG CITRATE SO FAR. C/O OF HEART BURN; INDIGESTION; BLOATING AND PAIN 01/25. GAVE 0.4 MG DILAUDID BOLUS THROUGH PLASTIC CARD GRADER CARDROOM. WILL CONTINUE TO MONITOR.
[2018-10-23 03:49] LABS: BASOPHILS 0.2 % (0-2); EOSINOPHILS 2.2 % (0-7); HEMATOCRIT 25.4 % (42.0-54.0); HEMOGLOBIN 8.8 g/dL (13.5-17.5); IMMATURE GRANULOCYTES 2.1 % (0-5); LYMPHOCYTES 9.7 % (15-50); MCH 32.2 pg (26.0-34.0); MCHC 34.6 g/dL (31.0-37.0); MEAN PLATELET VOLUME 9.5 fL (7.4-10.4); MONOCYTES 9.6 % (2-11); NEUTROPHILS 76.2 % (40-80); PLATELET COUNT 471 10x3/uL (130-400); RBC 2.73 10x6/uL (4.20-6.10); RDW 15.2 % (11.5-14.5); WBC 13.2 10x3/uL (4.8-10.8)
[2018-10-23 03:56] LABS: CALC OSMOLALITY 264 mosm/kg (275-300); CALCIUM 7.9 mg/dL (8.5-10.1); CARBON DIOXIDE 30.1 mmol/L (21.0-32.0); CHLORIDE - SERUM 96 mmol/L (98-107); CREATININE - SERUM 0.9 mg/dL (0.6-1.3); GLUCOSE 98 mg/dL (74-106); POTASSIUM - SERUM 3.6 mmol/L (3.5-5.1); SODIUM 133 mmol/L (136-145); UREA NITROGEN 9 mg/dL (7-18); eGFR NON AFRICAN AMERICAN > 90 mL/min (90-120)
[2018-10-23 04:00] VITALS: BP 125/73
[2018-10-23 07:56] VITALS: BP 121/77
--- NOTE | 2018-10-23 08:39 | NUR ---
PATIENT RESTING IN BED. WOUND VAC INTAC TO MID ABD AREA. ILIOSTOMY APPLIANCE IN PLACE AND DRAINED WITH 120 CC LOOSE STOOL NOTED, ALSO GAS NOTED. BOLUS OF 0.4 MG DILAUDID GIVEN FOR PAIN OF 9. PATIENT NPO FOR CT LATER TODAY. CL IN REACH
[2018-10-23 12:45] VITALS: BP 134/68
--- NOTE | 2018-10-23 14:47 | NUR ---
WOUND VAC DRESSING CHANGE DATE: WOUND LOCATION: lower midline abd and left lower abd WOUND MEASUREMENTS:lower midline: 4cm x 3.5cm x 3.5cm (improved) left lower: 1cm x 2cm x 2.8cm (improved) WOUND DESCRIPTION: both red MUSCLE, TENDON, OR BONE EXPOSED? no DRAINAGE AMOUNT/DESCRIPTION: moderate sanguinous ODOR? no TYPE OF SPONGE USED AND AMOUNT: 1 black for midline, 1 black for left, 1 black for pigtail SETTINGS: -125mmhg low continuous TEACHING: dressing change schedule Pt tolerated well
[2018-10-23 15:43] VITALS: BP 141/75
[2018-10-23 17:20] LABS: COLOR YELLOW (YELLOW)
[2018-10-23 17:21] LABS: APPEARANCE CLEAR (CLEAR); BILIRUBIN NEGATIVE (NEGATIVE); GLUCOSE NEGATIVE (NEGATIVE); KETONE NEGATIVE (NEGATIVE); NITRITE NEGATIVE (NEGATIVE); PROTEIN NEGATIVE (NEGATIVE); UROBILINOGEN NORMAL (NORMAL)
--- NOTE | 2018-10-23 19:26 | NUR ---
EXPLAINED PURPOSE NG FOR DECOMPRESSION AND RELIEF OF NAUSEA PATIENT AGREED, INSERTED NG TUBE TO RIGHT NARE WITH MINIMAL DIFFICULTY. GREEN BILE PULLED TO TUBE AND CANISTER. PATIENT UNABLE TO TOLERATE AND REFUSED, DEMANDED THAT IT BED TAKEN OUT. REMOVED STITCH TO PILO DRAIN, PULLED OUT AROUND 3 INCHES WITH PATIENT YELLING WITH PAIN AND LARGE AMOUNT OF RESISTANCE NOTED WHEN PULLING. NOTIFIED DR ZHAO OF NG REFUSAL AND DIFFICULTY WITH PILO. DR ZHAO STATED HE WILL PULL IN THE AM.
--- NOTE | 2018-10-23 20:00 | NUR ---
LYING IN BED. ALERT AND ORIENTED X4. IRRITABLE AND ANXIOUS. RESP EVEN AND NONLABORED. NOT WEARING O2. ILEOSTOMY NOTED TO RLQ WITH LIQUID BROWN STOOL. WOUND VAC NOTED TO MID ABD WITH BLOODY DRAINAGE IN CANISTER. PILO DRAIN TO LLQ WITH SEROSANGUINEOUS FLUID IN BULB. RATES PAIN IN ABD 7. HVAC LEAD DILAUDID IN USE. PROCAL INFUSING @ 100 ML/HR. BANANA BAG INFUSING @ 125 ML/HR IN LT TLSC. NO VOMITING AT THIS TIME. MADE NURSE REMOVE NGT PRIOR TO SHIFT CHANGE. BOWEL SOUNDS HYPOACTIVE. PEDAL PULSES WEAK BILAT. NO ACUTE DISTRESS. SR ELEVATED X2. CL IN REACH.
--- NOTE | 2018-10-24 01:10 | NUR ---
HAS RESTED WELL SO FAR THIS SHIFT. NO DISTRESS. CL IN REACH.
[2018-10-24 05:19] LABS: BASOPHILS 0.3 % (0-2); EOSINOPHILS 2.4 % (0-7); HEMATOCRIT 25.4 % (42.0-54.0); HEMOGLOBIN 8.5 g/dL (13.5-17.5); IMMATURE GRANULOCYTES 2.5 % (0-5); LYMPHOCYTES 9.3 % (15-50); MCHC 33.5 g/dL (31.0-37.0); MCV 92.7 fL (80.0-100.0); MEAN PLATELET VOLUME 10.2 fL (7.4-10.4); MONOCYTES 8.9 % (2-11); NEUTROPHILS 76.6 % (40-80); PLATELET COUNT 521 10x3/uL (130-400); RBC 2.74 10x6/uL (4.20-6.10); RDW 15.3 % (11.5-14.5)
[2018-10-24 05:34] LABS: CALC OSMOLALITY 260 mosm/kg (275-300); CALCIUM 7.7 mg/dL (8.5-10.1); CARBON DIOXIDE 25.8 mmol/L (21.0-32.0); CHLORIDE - SERUM 98 mmol/L (98-107); CREATININE - SERUM 0.8 mg/dL (0.6-1.3); GLUCOSE 91 mg/dL (74-106); POTASSIUM - SERUM 3.6 mmol/L (3.5-5.1); SODIUM 131 mmol/L (136-145); UREA NITROGEN 8 mg/dL (7-18); VANCOMYCIN - TROUGH 16.7 ug/mL (10.0-20.0); eGFR NON AFRICAN AMERICAN > 90 mL/min (90-120)
--- NOTE | 2018-10-24 07:20 | NUR ---
PATIENT RECIEVED RESTING WITH NO NEEDS VOICED. CONTINUES TO REFUSE PILO PULLED. DENIES NAUSEA AT THIS TIME. CL IN REACH
[2018-10-24 08:00] VITALS: BP 121/74
[2018-10-24 12:00] VITALS: BP 129/74
--- NOTE | 2018-10-24 13:32 | NUR ---
NUTRITION F/U CHART REVIEWED. PT NOW NPO WITH PROCALAMINE RUNNING AT 100 CC/HR. PROVIDING ~588 KCAL, 72 GM PROTEIN PER DAY. WILL CONTINUE TO MONITOR PT PROGRESS, DIET ADVANCEMENT. RD FOLLOWING
[2018-10-24 16:00] VITALS: BP 136/81
--- NOTE | 2018-10-24 20:30 | NUR ---
AWAKE,ALERT,NO COMPALITNS VOICED.IV INFUSING TO LEFT SC WITHOUT REDNESS OR EDEMA NOTED. WOUND VAC INTACT TO ABD. PILO TO LEFT ABD INTACT AND COMPRESSED.ILEOSTOMY TO RIGHT ABD WITH APPLIANCE INTACT AND DRAINING DARK GREEN DRAINAGE. SURG PHYSICIAN ASST IN USE FOR PAIN CONTROL. CL IN REACH
[2018-10-25 05:07] LABS: BASOPHILS 0.5 % (0-2); EOSINOPHILS 3.4 % (0-7); HEMATOCRIT 25.3 % (42.0-54.0); HEMOGLOBIN 8.5 g/dL (13.5-17.5); IMMATURE GRANULOCYTES 2.8 % (0-5); LYMPHOCYTES 10.8 % (15-50); MCH 31.3 pg (26.0-34.0); MCHC 33.6 g/dL (31.0-37.0); MEAN PLATELET VOLUME 10.5 fL (7.4-10.4); MONOCYTES 9.7 % (2-11); NEUTROPHILS 72.8 % (40-80); PLATELET COUNT 534 10x3/uL (130-400); RBC 2.72 10x6/uL (4.20-6.10); RDW 15.5 % (11.5-14.5); WBC 11.6 10x3/uL (4.8-10.8)
[2018-10-25 05:37] LABS: CALC OSMOLALITY 261 mosm/kg (275-300); CALCIUM 7.7 mg/dL (8.5-10.1); CARBON DIOXIDE 22.5 mmol/L (21.0-32.0); CHLORIDE - SERUM 99 mmol/L (98-107); CREATININE - SERUM 0.7 mg/dL (0.6-1.3); GLUCOSE 85 mg/dL (74-106); POTASSIUM - SERUM 3.7 mmol/L (3.5-5.1); SODIUM 132 mmol/L (136-145); UREA NITROGEN 8 mg/dL (7-18); eGFR NON AFRICAN AMERICAN > 90 mL/min (90-120)
--- NOTE | 2018-10-25 08:14 | NUR ---
I have reviewed this patient and I concur with the Shift Assessment completed by the Licensed Practical Nurse today this shift.
[2018-10-25 08:29] VITALS: BP 119/76
--- NOTE | 2018-10-25 09:56 | NUR ---
PT UP IN BATHROOM. FECES NOTED ON SELF FROM ILESOSTOMY LEAKING. ICT ANALYST ASSISTING PT WITH SHOWER. NO S/S OF ACUTE DISTRESS. CL IN PLACE.
[2018-10-25 13:26] VITALS: BP 116/72
--- NOTE | 2018-10-25 15:41 | NUR ---
Pt refused vac dressing change today. Agreed to allow me to change it on Tuesday.
[2018-10-25 16:32] VITALS: BP 128/78
--- NOTE | 2018-10-25 19:37 | NUR ---
COLOSTOMY CHANGED, CENTRAL LINE DRESSING CHANGE. PILO DRAIN DC BY JT MENA. NO S/S OF ACUTE DISTRESS. CL IN PLACE.
[2018-10-25 21:41] VITALS: BP 116/71
--- NOTE | 2018-10-26 00:29 | NUR ---
I have reviewed this patient and I concur with the Shift Assessment completed by the Licensed Practical Nurse today this shift.
[2018-10-26 01:15] VITALS: BP 120/73
[2018-10-26 04:50] LABS: BASOPHILS 0.4 % (0-2); EOSINOPHILS 3.9 % (0-7); HEMATOCRIT 24.7 % (42.0-54.0); HEMOGLOBIN 8.2 g/dL (13.5-17.5); IMMATURE GRANULOCYTES 2.9 % (0-5); LYMPHOCYTES 10.8 % (15-50); MCH 31.1 pg (26.0-34.0); MCHC 33.2 g/dL (31.0-37.0); MCV 93.6 fL (80.0-100.0); MEAN PLATELET VOLUME 10.4 fL (7.4-10.4); MONOCYTES 9.1 % (2-11); NEUTROPHILS 72.9 % (40-80); PLATELET COUNT 568 10x3/uL (130-400); RBC 2.64 10x6/uL (4.20-6.10); RDW 15.6 % (11.5-14.5); WBC 11.7 10x3/uL (4.8-10.8)
[2018-10-26 04:51] VITALS: BP 119/81
[2018-10-26 05:03] LABS: ALBUMIN 1.7 g/dL (3.4-5.0); ALKALINE PHOSPHATASE 120 U/L (46-116); ALT (SGPT) 27 U/L (10-68); BILIRUBIN - TOTAL 0.46 mg/dL (0.2-1.3); CALC OSMOLALITY 263 mosm/kg (275-300); CALCIUM 7.6 mg/dL (8.5-10.1); CHLORIDE - SERUM 101 mmol/L (98-107); CREATININE - SERUM 0.8 mg/dL (0.6-1.3); GLUCOSE 91 mg/dL (74-106); PROTEIN - SERUM 6.1 g/dL (6.4-8.2); SODIUM 133 mmol/L (136-145); UREA NITROGEN 7 mg/dL (7-18); eGFR NON AFRICAN AMERICAN > 90 mL/min (90-120)
--- NOTE | 2018-10-26 07:25 | NUR ---
PT RESTING IN BED, ALERT AND ORIENTED. UP WITH ASSIST. WOUND VAC TO MIDLINE OF ABDOMEN. ILLEOSTOMY TO RUQ. USES URINAL TO VOID IN. CENTRAL LINE TO LEFT CHEST, PROCAL INFUSING @ 100ML/HR, MULTIVITAMIN @ 100ML/HR. RECREATION ATTENDANT DILAUDID FOR PAIN, MANAGING PAIN LEVEL AT THIS TIME. NO S/S OF ACUTE DISTRESS NOTED. PT DENIES ANYTHING FURTHER AT THIS TIME. CALL LIGHT IN REACH. WILL CONTINUE TO MONITOR.
[2018-10-26 10:01] VITALS: BP 116/75
[2018-10-26 12:43] VITALS: BP 116/73
--- NOTE | 2018-10-26 18:06 | NUR ---
PT RESTING IN BED, ALERT AND ORIENTED. NO C/O PAIN. NO S/S OF ACUTE DISTRESS NOTED. PT DENIES ANYTHING FURTHER AT THIS TIME. CALL LIGHT IN REACH. WILL CONTINUE TO MONITOR.
--- NOTE | 2018-10-26 18:48 | NUR ---
PT IS WITHOUT DISTRESS.CALL LIGHT IN REACH
[2018-10-26 19:09] VITALS: BP 119/69
[2018-10-26 20:00] VITALS: BP 116/74
--- NOTE | 2018-10-26 21:00 | NUR ---
WATCHING TV QUEITLY. NO DISTRESS NOTED. IV INFUSING TO LSC WITHOUT REDNESS OR EDEMA NOTED. WOUND VAC INTACT TO LOWER ABD WITH DARK GREEN DRAINAGE NOTED. ILEOSTOMY TO RLA NOTED. NO COMPLAINTS AT PRESENT. FORMULA ROOM WORKER DILAUDID IN USE FOR PAIN CONTROL
[2018-10-27] VITALS: BP 139/79; BP 162/79
[2018-10-27 04:00] VITALS: BP 131/82
[2018-10-27 04:05] LABS: BASOPHILS 0.6 % (0-2); EOSINOPHILS 5.1 % (0-7); HEMATOCRIT 26.5 % (42.0-54.0); HEMOGLOBIN 8.9 g/dL (13.5-17.5); IMMATURE GRANULOCYTES 2.3 % (0-5); LYMPHOCYTES 14.2 % (15-50); MCH 31.6 pg (26.0-34.0); MCHC 33.6 g/dL (31.0-37.0); MEAN PLATELET VOLUME 10.1 fL (7.4-10.4); MONOCYTES 8.8 % (2-11); PLATELET COUNT 635 10x3/uL (130-400); RBC 2.82 10x6/uL (4.20-6.10); RDW 15.9 % (11.5-14.5)
[2018-10-27 04:29] LABS: ALBUMIN 1.9 g/dL (3.4-5.0); ALKALINE PHOSPHATASE 126 U/L (46-116); ALT (SGPT) 29 U/L (10-68); BILIRUBIN - TOTAL 0.42 mg/dL (0.2-1.3); CALC OSMOLALITY 261 mosm/kg (275-300); CALCIUM 8.3 mg/dL (8.5-10.1); CARBON DIOXIDE 25.9 mmol/L (21.0-32.0); CHLORIDE - SERUM 99 mmol/L (98-107); GLUCOSE 84 mg/dL (74-106); POTASSIUM - SERUM 4.1 mmol/L (3.5-5.1); SODIUM 132 mmol/L (136-145); UREA NITROGEN 7 mg/dL (7-18); eGFR NON AFRICAN AMERICAN 84 mL/min (90-120)
--- NOTE | 2018-10-27 07:42 | NUR ---
RCVD IN BED, CARE PROVIDED NEEDED. VOICED WISHES TO GO BACK TO SLEEP, DENIES ANY PAIN AT THIS TIME. WILL NOTE ANY CHANGE.
[2018-10-27 08:30] VITALS: BP 110/64
--- NOTE | 2018-10-27 12:10 | NUR ---
WOUND VAC DRESSING CHANGE DATE: 10/27/18 WOUND LOCATION: lower midline abd and left lower abd WOUND MEASUREMENTS: lower midline: 7.5cm x 3cm x 2.5cm (improved) left lower abd: 1cm x 1cm x 2cm (improved) WOUND DESCRIPTION: red/granulation noted MUSCLE, TENDON, OR BONE EXPOSED? no DRAINAGE AMOUNT/DESCRIPTION: moderate serosanguinous ODOR? no TYPE OF SPONGE USED AND AMOUNT: 3 total black (1for lower midline, 1 for left and 1 for pigtail) SETTINGS: -125mmhg low continuous TEACHING: healing process Pt tolerated well.
[2018-10-27 12:32] VITALS: BP 120/77
--- NOTE | 2018-10-27 14:23 | NUR ---
Nutrition Follow Up: Pt was asleep at the time of RD visit. Interview deferred at this time. Diet: Regular PO Intake: 8% meal avg (pt did eat 75% at breakfast today) I>O No new wt Labs reviewed Meds noted including Procalamine @ 100 ml/hr providing 588 kcal, 70 g protein; 250 ml Lipids Q48H providing 250 kcal/d Rec continue current diet. Rec consider an appetite stimulant. Rec decreasing Procalamine rate. RD following.
--- NOTE | 2018-10-27 15:09 | MORECARE ---
CASE MANAGEMENT DISCHARGE SUMMARY PATIENT: BEBETO LINN UNIT: [id number] ADM DATE: 10/10/18 AGE: 52 : 69 SEX: M ROOM/BED: D.2209 AUTHOR: SANDRA,DOC PHYSICIAN: REFERRING PHYSICIAN: MANNY SUAZO MD DATE OF SERVICE: 10/27/18 Discharge Plan Patient Name: BEBETO LINN Facility: [facility]:[place] : 1965 Planned Disposition: Home Anticipated Discharge Date: Discharge Date: Expected LOS: Initial Reviewer: [email or web address] Initial Review Date: 10/12/2018 Generated: 10/27/18 4:09 pm DCP- Discharge Planning Updated by [id number]: Astrid Bullard on 10/12/18 1:[address] Patient Name: BEBETO LINN Admission Status: Elective Accout number: [id number] Admission Date: 10-10-2018 : 1965 Admission Diagnosis: Attending: MANNY SUAZO Current LOS: 2 Anticipated DC Date: Planned Disposition: Home Primary Insurance: MEDICAID [place] CM met with patient to complete initial dc planning assessment. CM educated patient on the CM role and verbal consent given by patient to complete assessment. Patient lives at home alone. At discharge patient plans to return and feels this is a safe discharge. CM discussed availability of home health, rehab services, and medical equipment. Patient denied known discharge needs at this time. States he has had [facility] in the past, but does not need them at this time. States his friend (Fabio) will drive him home on discharge. CM will continue to follow and will assist as needed with dc plans/needs. Discharge Planning Comments: Hose Handler: Astrid Bullard DCPIA - Discharge Planning Initial Assessment Updated by [id number]: Astrid Bullard on 10/12/18 2:40 pm * Is the patient Alert and Oriented? Yes * How many steps to enter\exit or inside your home? 8/0 * PCP Dr. Aleman * Pharmacy [facility] on [address] and [facility] * Preadmission Environment Home Alone * ADLs Independent * Equipment Bedside Commode Other Oxygen Walker * Other Equipment Portable oxygen * List name and contact numbers for known caregivers / representatives who currently or will assist patient after discharge: Ross Lynn - friend - [phone] Fabio Ng - tai * Verbal permission to speak to the caregivers and representatives has been obtained from the patient. Yes * Community resources currently utilized None * Additional services required to return to the preadmission environment? No * Can the patient safely return to the preadmission environment? Yes * Has this patient been hospitalized within the prior 30 days at any hospital? No Last DP export: 10/12/18 1:53 p Patient Name: BEBETO LINN Page [phone] at 1509 All edits/amendments must be made on the electronic document DICTATION DATE: 10/27/181508 PUBLIC AFFAIRS OFFICER: JAYSON 10/27/18 1509 RPT#: [id number] DC DATE: STATUS: ADM IN [facility] [address] [place] [address] END OF REPORT
[2018-10-27 16:51] VITALS: BP 113/83
[2018-10-27 20:00] VITALS: BP 127/78
--- NOTE | 2018-10-27 21:00 | NUR ---
PT LAYING FLAT AND SUPINE IN BED. ENCOURAGED PT TO START GETTING UP AND TURNING IN BED. PT REPORTS HE HAS BEEN AND HE DOES NOT WANT TO TONIGHT BECAUSE HE'S IN SO MUCH PAIN. AGREED TO TURN TO LEFT SIDE FOR A LITTLE WHILE. WILL CONTINUE TO MONITOR.
[2018-10-28] VITALS: BP 135/80
--- NOTE | 2018-10-28 03:00 | NUR ---
I have reviewed this patient and I concur with the Shift Assessment completed by the Licensed Practical Nurse today this shift.
[2018-10-28 06:38] LABS: ALKALINE PHOSPHATASE 133 U/L (46-116); ALT (SGPT) 29 U/L (10-68); BILIRUBIN - TOTAL 0.34 mg/dL (0.2-1.3); CALC OSMOLALITY 261 mosm/kg (275-300); CALCIUM 8.2 mg/dL (8.5-10.1); CHLORIDE - SERUM 99 mmol/L (98-107); CREATININE - SERUM 0.8 mg/dL (0.6-1.3); GLUCOSE 104 mg/dL (74-106); POTASSIUM - SERUM 4.1 mmol/L (3.5-5.1); PROTEIN - SERUM 7.2 g/dL (6.4-8.2); SODIUM 131 mmol/L (136-145); UREA NITROGEN 9 mg/dL (7-18); eGFR NON AFRICAN AMERICAN > 90 mL/min (90-120)
[2018-10-28 06:53] LABS: BASOPHILS 0.8 % (0-2); EOSINOPHILS 8.3 % (0-7); HEMATOCRIT 26.3 % (42.0-54.0); HEMOGLOBIN 8.7 g/dL (13.5-17.5); IMMATURE GRANULOCYTES 1.7 % (0-5); LYMPHOCYTES 12.4 % (15-50); MCH 30.7 pg (26.0-34.0); MCHC 33.1 g/dL (31.0-37.0); MCV 92.9 fL (80.0-100.0); MEAN PLATELET VOLUME 10.3 fL (7.4-10.4); MONOCYTES 7.3 % (2-11); NEUTROPHILS 69.5 % (40-80); PLATELET COUNT 692 10x3/uL (130-400); RBC 2.83 10x6/uL (4.20-6.10); RDW 15.6 % (11.5-14.5); WBC 11.7 10x3/uL (4.8-10.8)
[2018-10-28 08:26] VITALS: BP 118/77
[2018-10-28 12:46] VITALS: BP 121/85
--- NOTE | 2018-10-28 16:29 | NUR ---
I have reviewed this patient and I concur with the Shift Assessment completed by the Licensed Practical Nurse today this shift.
[2018-10-28 17:52] VITALS: BP 119/75
--- NOTE | 2018-10-28 19:15 | NUR ---
PT ALERT AND ORIENTED WHEN ENTERING THE ROOM. PATIENT WEARING 3L OXYGEN. HAS LEFT CHEST PORT THAT IS INFUSING NS AND PROCAL. PT HAS TURKEY ROLL MAKER DILAUDID AT 0.2/10/4 AND PROVIDES RETURN DEMONSTRATION ON HOW TO USE PUMP EFFECTIVELY. PT HAS COLOSTOMY THAT IS FILLED WITH 50ML OF LIGHT BROWN WATERY STOOL. EMPTIED AND CLEANED. RESPIRATIONS ARE EVEN AND UNLABORED. PAIN SCALE RATING IS 4/10. DENIES NEEDS AT THIS TIME. HAS CALL LIGHT IN HAND. CONTINUE PLAN OF CARE
[2018-10-28 20:00] VITALS: BP 133/77
--- NOTE | 2018-10-28 20:25 | NUR ---
PT REQUESTED BOLUS AND STATES HE IS IN SEVERE PAIN AT THIS TIME. BOLUS DOSE GIVEN PER ADMINISTRATION INSTRUCTIONS. DENIES FURTHER NEEDS AT THIS TIME. CPOC.
--- NOTE | 2018-10-29 02:54 | NUR ---
I have reviewed this patient and I concur with the Shift Assessment completed by the Licensed Practical Nurse today this shift.
[2018-10-29 04:00] VITALS: BP 112/76
[2018-10-29 06:49] LABS: BASOPHILS 0.8 % (0-2); HEMATOCRIT 27.6 % (42.0-54.0); HEMOGLOBIN 9.1 g/dL (13.5-17.5); IMMATURE GRANULOCYTES 2.1 % (0-5); LYMPHOCYTES 14.2 % (15-50); MCH 30.8 pg (26.0-34.0); MCV 93.6 fL (80.0-100.0); MEAN PLATELET VOLUME 10.2 fL (7.4-10.4); MONOCYTES 9.1 % (2-11); NEUTROPHILS 65.8 % (40-80); PLATELET COUNT 749 10x3/uL (130-400); RBC 2.95 10x6/uL (4.20-6.10); RDW 15.7 % (11.5-14.5); WBC 10.9 10x3/uL (4.8-10.8)
[2018-10-29 07:08] LABS: ALBUMIN 2.3 g/dL (3.4-5.0); ALKALINE PHOSPHATASE 135 U/L (46-116); ALT (SGPT) 28 U/L (10-68); BILIRUBIN - TOTAL 0.36 mg/dL (0.2-1.3); CALC OSMOLALITY 264 mosm/kg (275-300); CALCIUM 8.7 mg/dL (8.5-10.1); CARBON DIOXIDE 23.3 mmol/L (21.0-32.0); CHLORIDE - SERUM 98 mmol/L (98-107); GLUCOSE 96 mg/dL (74-106); POTASSIUM - SERUM 4.3 mmol/L (3.5-5.1); PROTEIN - SERUM 7.7 g/dL (6.4-8.2); SODIUM 133 mmol/L (136-145); UREA NITROGEN 10 mg/dL (7-18); eGFR NON AFRICAN AMERICAN 84 mL/min (90-120)
--- NOTE | 2018-10-29 09:00 | NUR ---
PT AAOX4 NO SIGNS OF DISTRESS NOTED CL IN REACH WILL CONTINE TO MONITOR
[2018-10-29 09:10] VITALS: BP 103/69
[2018-10-29 12:12] VITALS: BP 108/75
[2018-10-29 16:31] VITALS: BP 118/76
--- NOTE | 2018-10-29 18:14 | NUR ---
I have reviewed this patient and I concur with the Shift Assessment completed by the Licensed Practical Nurse today this shift.
--- NOTE | 2018-10-29 19:30 | NUR ---
PT ALERT AND ORIENTED. STATES HE IS READY TO GO TO BED. REQUESTS BLUE SOCKS. APPLIED FOR PATIENT. STATES HE WANTS HIS MEDICINE SOON POSSIBLE BECAUSE HE IS READY FOR BED. REQUESTS A BOLUS AND STATES PAIN IS 8/10. PATIENT WEARING 3L VIA NC. RESPIRATIONS EVEN AND UNLABORED. BOWEL SOUNDS ARE ACTIVE WITH RIGHT SIDED COLOSTOMY. EMPTIED COLOSTOMY. CONTENTS WERE LIGHT BROWN AND SOFT. DENIES FURTHER NEEDS AT THIS TIME. CPOC.
[2018-10-29 20:44] VITALS: BP 110/72
[2018-10-30 04:31] LABS: BASOPHILS 0.5 % (0-2); EOSINOPHILS 6.7 % (0-7); HEMATOCRIT 29.4 % (42.0-54.0); HEMOGLOBIN 9.8 g/dL (13.5-17.5); IMMATURE GRANULOCYTES 1.8 % (0-5); LYMPHOCYTES 15.2 % (15-50); MCH 31.2 pg (26.0-34.0); MCHC 33.3 g/dL (31.0-37.0); MCV 93.6 fL (80.0-100.0); MEAN PLATELET VOLUME 9.6 fL (7.4-10.4); MONOCYTES 8.3 % (2-11); NEUTROPHILS 67.5 % (40-80); PLATELET COUNT 694 10x3/uL (130-400); RBC 3.14 10x6/uL (4.20-6.10); RDW 15.8 % (11.5-14.5)
[2018-10-30 04:49] LABS: ALBUMIN 2.4 g/dL (3.4-5.0); ALKALINE PHOSPHATASE 144 U/L (46-116); ALT (SGPT) 33 U/L (10-68); BILIRUBIN - TOTAL 0.35 mg/dL (0.2-1.3); CALC OSMOLALITY 265 mosm/kg (275-300); CALCIUM 8.8 mg/dL (8.5-10.1); CARBON DIOXIDE 25.2 mmol/L (21.0-32.0); CHLORIDE - SERUM 98 mmol/L (98-107); GLUCOSE 109 mg/dL (74-106); POTASSIUM - SERUM 4.5 mmol/L (3.5-5.1); PROTEIN - SERUM 8.1 g/dL (6.4-8.2); SODIUM 133 mmol/L (136-145); UREA NITROGEN 9 mg/dL (7-18); eGFR NON AFRICAN AMERICAN 84 mL/min (90-120)
[2018-10-30 05:42] VITALS: BP 111/75
--- NOTE | 2018-10-30 08:01 | NUR ---
PT LAYING IN BED WITH LIGHTS OFF SLEEPING. NO SIGNS OF DISTRESS NOTED. BED IN LOWEST POSITON AND CALL LIGHT WITH IN REACH. CONTINUE WITH PLAN OF CARE.
[2018-10-30 08:43] VITALS: BP 103/71
[2018-10-30 13:10] VITALS: BP 102/68
--- NOTE | 2018-10-30 14:32 | NUR ---
WOUND VAC DRESSING CHANGE DATE: 10/30/18 WOUND LOCATION: lower midline abd and left lower abd WOUND MEASUREMENTS: lower midline: 7.5cm x2.5cm x2.5cm (improved) left lower abd: 1cm x 1cm x 1.5cm (improved) WOUND DESCRIPTION: beefy red MUSCLE, TENDON, OR BONE EXPOSED? no DRAINAGE AMOUNT/DESCRIPTION: mod serosanguinous ODOR? no TYPE OF SPONGE USED AND AMOUNT: black x 3 pieces SETTINGS: -125mmhg low continuous TEACHING: healing process Pt tolerated well.
[2018-10-30 17:15] VITALS: BP 116/73
--- NOTE | 2018-10-30 17:23 | NUR ---
EMPTIED 100ML OF DARK GREEN STOOL FROM COLOSTOMY BAG. STOMA IS PINK AND MOIST. PT DENIES PAIN OR NEEDING ANYTHING AT THIS TIME. BED IN THE LOWEST POSITION AND CALL LIGHT WITH IN REACH. CONTINUE WITH PLAN OF CARE.
--- NOTE | 2018-10-30 21:45 | NUR ---
PT REPORTS INTENSE SHARP PAIN WITH SUDDEN ONSET. REPORTS NO RECENT SUDDEN MOVEMENTS. INFORMED IT WAS PROBABLY DUE TO GAS. BOWEL SOUNDS ACTIVE, NON-TENDER TO PALPATION. PT DISAGREED STATING HE KNEW HOW GAS PAIN FELT AND, "THIS ISN'T IT! SOMETHING'S WRONG.." ENCOURAGED PT TO GET UP AND WALK MORE TO RULE OUT GAS, NO VISIBLE/OBVIOUS SIGNS OF OTHER ISSUES. BOLUS DOSE GIVEN.
[2018-10-30 21:57] VITALS: BP 113/70
--- NOTE | 2018-10-30 22:45 | NUR ---
PT REPORTS PAIN IS GONE AND WAS INFACT RELATED TO GAS.
[2018-10-31 00:53] VITALS: BP 124/64
--- NOTE | 2018-10-31 04:43 | NUR ---
I have reviewed this patient and I concur with the Shift Assessment completed by the Licensed Practical Nurse today this shift.
[2018-10-31 04:45] VITALS: BP 104/71
[2018-10-31 07:04] LABS: BASOPHILS 1.1 % (0-2); EOSINOPHILS 8.5 % (0-7); HEMATOCRIT 28.9 % (42.0-54.0); HEMOGLOBIN 9.4 g/dL (13.5-17.5); IMMATURE GRANULOCYTES 1.6 % (0-5); LYMPHOCYTES 22.5 % (15-50); MCH 30.5 pg (26.0-34.0); MCHC 32.5 g/dL (31.0-37.0); MCV 93.8 fL (80.0-100.0); MEAN PLATELET VOLUME 9.8 fL (7.4-10.4); MONOCYTES 7.3 % (2-11); PLATELET COUNT 713 10x3/uL (130-400); RBC 3.08 10x6/uL (4.20-6.10); RDW 15.5 % (11.5-14.5); WBC 8.1 10x3/uL (4.8-10.8)
[2018-10-31 07:09] LABS: ALBUMIN 2.5 g/dL (3.4-5.0); ANION GAP 11.9 mmol/L (8-16); BILIRUBIN - TOTAL 0.29 mg/dL (0.2-1.3); CARBON DIOXIDE 25.3 mmol/L (21.0-32.0); CREATININE - SERUM 1.2 mg/dL (0.6-1.3); POTASSIUM - SERUM 4.2 mmol/L (3.5-5.1); PROTEIN - SERUM 7.9 g/dL (6.4-8.2)
--- NOTE | 2018-10-31 08:00 | NUR ---
PT LAYING IN BED SLEEPING WITH LIGHTS OFF. CVL TO THE LT CHEST WITH CLEAN DRESSINGS. COLOSTOMY LOCATED TO THE RLQ DRAINING DARK GREEN STOOL, PINK/ MOIST STOMA NOTED. WOUND VAC TO THE LOWER QUADRANT. PT DENIES PAIN OR NEEDING ANYTHING AT THIS TIME. BED IN THE LOWEST POSITION AND CALL LIGHT WITH IN REACH. CONTINUE WITH PLAN OF CARE.
[2018-10-31 09:08] VITALS: BP 118/72
--- NOTE | 2018-10-31 12:15 | NUR ---
COMPLAINING OF PAIN IN HIS ANDOMEN. ENCOURAGED PT TO GET UP AND WALK. PT AGREED TO WALKING AND WALKED AROUND NURSES STATION ONE TIME. ONCE BACK IN THE ROOM PT STATED THAT HE FELT BETTER. BED IN THE LOWEST POSITION AND CALL LIGHT WITH IN REACH. CONTINUE WITH PLAN OF CARE.
[2018-10-31 13:28] VITALS: BP 128/79
[2018-10-31 17:04] VITALS: BP 122/79
--- NOTE | 2018-10-31 21:30 | NUR ---
PT UP IN ROOM, EMPTYING HIS OSTOMY.
[2018-10-31 21:56] VITALS: BP 115/74
--- NOTE | 2018-11-01 03:30 | NUR ---
I have reviewed this patient and I concur with the Shift Assessment completed by the Licensed Practical Nurse today this shift.
[2018-11-01 05:23] VITALS: BP 115/79
[2018-11-01 05:36] LABS: EOSINOPHILS 7.4 % (0-7); HEMATOCRIT 27.7 % (42.0-54.0); HEMOGLOBIN 9.1 g/dL (13.5-17.5); IMMATURE GRANULOCYTES 1.4 % (0-5); LYMPHOCYTES 25.1 % (15-50); MCH 30.8 pg (26.0-34.0); MCHC 32.9 g/dL (31.0-37.0); MCV 93.9 fL (80.0-100.0); MEAN PLATELET VOLUME 9.7 fL (7.4-10.4); MONOCYTES 8.7 % (2-11); NEUTROPHILS 56.4 % (40-80); PLATELET COUNT 704 10x3/uL (130-400); RBC 2.95 10x6/uL (4.20-6.10); RDW 15.4 % (11.5-14.5); WBC 6.9 10x3/uL (4.8-10.8)
[2018-11-01 06:03] LABS: ALBUMIN 2.5 g/dL (3.4-5.0); ALKALINE PHOSPHATASE 130 U/L (46-116); BILIRUBIN - TOTAL 0.19 mg/dL (0.2-1.3); CALC OSMOLALITY 266 mosm/kg (275-300); CALCIUM 8.6 mg/dL (8.5-10.1); CHLORIDE - SERUM 101 mmol/L (98-107); CREATININE - SERUM 1.1 mg/dL (0.6-1.3); GLUCOSE 103 mg/dL (74-106); POTASSIUM - SERUM 4.1 mmol/L (3.5-5.1); PROTEIN - SERUM 7.7 g/dL (6.4-8.2); SODIUM 134 mmol/L (136-145); UREA NITROGEN 9 mg/dL (7-18); eGFR NON AFRICAN AMERICAN 75 mL/min (90-120)
[2018-11-01 06:05] LABS: ALT (SGPT) 23 U/L (10-68)
[2018-11-01 08:44] VITALS: BP 122/82
--- NOTE | 2018-11-01 08:59 | NUR ---
PT ALERT X 4. BREATH SOUNDS CLEAR BILAT. PORT TO LEFT CHEST, PATENT, DRESSING CDI. WOUND VAC TO ABDOMEN, SCANT DRAINAGE. ILEOSTOMY TO RLQ. PT REPORTING PAIN OF 7/10, MEDICATED PER ORDERS, WILL MONITOR. BED LOW, CALL LIGHT IN REACH. NO OTHER NEEDS AT THIS TIME.
--- NOTE | 2018-11-01 12:19 | NUR ---
NUTRITION F/U PT TOLERATING REG DIET WITH 100% INTAKE BREAKFAST. WILL CONTINUE TO PROVIDE DIET, MONITOR PO INTAKE. RD FOLLOWING
[2018-11-01 13:31] VITALS: BP 133/88
[2018-11-01] MEDS ORDERED: PERCOCET 10-321 EAC1 PO (14:02)
--- NOTE | 2018-11-01 14:19 | NUR ---
Wound vac dressing/therapy discontinued. Pt is being discharged home. Dr. Lizama in room with orders for wet to dry dressings using saline to be done by .
--- NOTE | 2018-11-01 14:32 | MORECARE ---
CASE MANAGEMENT DISCHARGE SUMMARY PATIENT: BEBETO LINN UNIT: [id number] ADM DATE: 10/10/18 AGE: 52 : 69 SEX: M ROOM/BED: D.2209 AUTHOR: PARAMJIT FLORES PHYSICIAN: REFERRING PHYSICIAN: MANNY SUAZO MD DATE OF SERVICE: 11/01/18 Discharge Plan Patient Name: BEBETO LINN Facility: [facility]:[place] : 1965 Planned Disposition: Home Anticipated Discharge Date: Discharge Date: Expected LOS: Initial Reviewer: [email or web address] Initial Review Date: 10/12/2018 Generated: 11/01/18 3:31 pm Comments DCP- Discharge Planning Updated by [email or web address]: Brianda Kang on 11/01/18 1:[address] Patient discharging home with [facility], I called Jennifer with [facility] and they should see him tomorrow. CM to follow and assist with DC planning DCP- Discharge Planning Updated by [email or web address]: Astrid Bullard on 10/12/18 1:[address] Patient Name: BEBETO LINN Admission Status: Elective Accout number: [id number] Admission Date: 10-10-2018 : 1965 Admission Diagnosis: Attending: MANNY SUAZO Current LOS: 2 Anticipated DC Date: Planned Disposition: Home Primary Insurance: MEDICAID [place] CM met with patient to complete initial dc planning assessment. CM educated patient on the CM role and verbal consent given by patient to complete assessment. Patient lives at home alone. At discharge patient plans to return and feels this is a safe discharge. CM discussed availability of home health, rehab services, and medical equipment. Patient denied known discharge needs at this time. States he has had [facility] in the past, but does not need them at this time. States his friend (Fabio) will drive him home on discharge. CM will continue to follow and will assist as needed with dc plans/needs. Discharge Planning Comments: Tissue Coordinator: Astrid Bullard DCPIA - Discharge Planning Initial Assessment Updated by [email or web address]: Astrid Bullard on 10/12/18 2:40 pm * Is the patient Alert and Oriented? Yes * How many steps to enter\exit or inside your home? 8/0 * PCP Dr. Aleman * Pharmacy [facility] on [address] and [facility] * Preadmission Environment Home Alone * ADLs Independent * Equipment Bedside Commode Other Oxygen Walker * Other Equipment Portable oxygen * List name and contact numbers for known caregivers / representatives who currently or will assist patient after discharge: Ross Lynn - tai - [phone] Fabio Ng - friend * Verbal permission to speak to the caregivers and representatives has been obtained from the patient. Yes * Community resources currently utilized None * Additional services required to return to the preadmission environment? No * Can the patient safely return to the preadmission environment? Yes * Has this patient been hospitalized within the prior 30 days at any hospital? No External Providers [facility] Next Contact Date: Service Request Date: Service Type: Resolution: Reviewer: Comments: Last DP export: 10/27/18 2:09 p Patient Name: BEBETO LINN Page [phone] at 1432 All edits/amendments must be made on the electronic document DICTATION DATE: 11/01/18 1431 PROJECT ECONOMIST: JAYSON 11/01/18 1431 RPT#: [id number] DC DATE: STATUS: ADM IN [facility] [address] [place] [address] END OF REPORT
--- NOTE | 2018-11-01 14:40 | MORECARE ---
CASE MANAGEMENT DISCHARGE SUMMARY PATIENT: BEBETO LINN UNIT: [id number] ADM DATE: 10/10/18 AGE: 52 : 69 SEX: M ROOM/BED: D.2209 AUTHOR: SANDRA,DOC PHYSICIAN: REFERRING PHYSICIAN: MANNY SUAZO MD DATE OF SERVICE: 11/01/18 Discharge Plan Patient Name: BEBETO LINN Facility: [facility]:[place] : 1965 Planned Disposition: Home Anticipated Discharge Date: Discharge Date: Expected LOS: Initial Reviewer: [email or web address] Initial Review Date: 10/12/2018 Generated: 11/01/18 3:40 pm Comments DCP- Discharge Planning Updated by [id number]: Brianda Kang on 11/01/18 1:[address] Patient stated that he has enough supplies to get him through until home health can get him some and his friend is picking him up. I called Jennifer to let her know that his phone is off and they just need to show up, he will be home. DCP- Discharge Planning Updated by [id number]: rBianda Kang on 11/01/18 1:[address] Patient discharging home with [facility], I called Jennifer with [facility] and they should see him tomorrow. CM to follow and assist with DC planning DCP- Discharge Planning Updated by [id number]: Astrid Bullard on 10/12/18 1:[address] Patient Name: BEBETO LINN Admission Status: Elective Accout number: [id number] Admission Date: 10-10-2018 : 1965 Admission Diagnosis: Attending: MANNY SUAZO Current LOS: 2 Anticipated DC Date: Planned Disposition: Home Primary Insurance: MEDICAID [place] CM met with patient to complete initial dc planning assessment. CM educated patient on the CM role and verbal consent given by patient to complete assessment. Patient lives at home alone. At discharge patient plans to return and feels this is a safe discharge. CM discussed availability of home health, rehab services, and medical equipment. Patient denied known discharge needs at this time. States he has had [facility] in the past, but does not need them at this time. States his friend (Fabio) will drive him home on discharge. CM will continue to follow and will assist as needed with dc plans/needs. Discharge Planning Comments: Boots And Shoes Supervisor: Astrid Bullard DCPIA - Discharge Planning Initial Assessment Updated by [email or web address]: Astird Bullard on 10/12/18 2:40 pm * Is the patient Alert and Oriented? Yes * How many steps to enter\exit or inside your home? 8/0 * PCP Dr. Aleman * Pharmacy [facility] on [address] and [facility] * Preadmission Environment Home Alone * ADLs Independent * Equipment Bedside Commode Other Oxygen Walker * Other Equipment Portable oxygen * List name and contact numbers for known caregivers / representatives who currently or will assist patient after discharge: Ross Lynn - friend - [phone] Fabio Ng - friend * Verbal permission to speak to the caregivers and representatives has been obtained from the patient. Yes * Community resources currently utilized None * Additional services required to return to the preadmission environment? No * Can the patient safely return to the preadmission environment? Yes * Has this patient been hospitalized within the prior 30 days at any hospital? No Last DP export: 11/01/18 1:32 p Patient Name: BEBETO LINN Page [id number] at 1440 All edits/amendments must be made on the electronic document DICTATION DATE: 11/01/181439 LINUX KERNEL ENGINEER: JAYSON 11/01/18 1440 RPT#: [id number] DC DATE: STATUS: ADM IN [facility] [address] [place] [address] END OF REPORT
--- NOTE | 2018-11-01 15:54 | NUR ---
DISCHARGE PAPERWORK SIGNED, ALL QUESTIONS ANSWERED. CENTRAL LINE TO LEFT CHEST DC'D. PRESSURE APPLIED FOR 10 MINUTES, PT LAYING FLAT. PRESSURE DRESSING APPLIED. PT REFUSED WHEELCHAIR. AMBULATED OFF OF FLOOR WITH ASSISTANCE FROM FRIEND.
== END 2018-11-01 15:55 | disposition home health service (06) | DRG 329 ==
LOC: D.OPS 05:40 → D.PAN 08:00 → D.MS 11:59 → D.OPS 12:00 → D.MS 12:01 → D.ICU 12:01 → D.MS 10-18 14:12
PROVIDERS: Family Medicine; Internal Medicine Nephrology; Surgery; ADMIT Surgery; ATTEND Surgery
PROC: 0DSN0ZZ Reposition Sigmoid Colon, Open Approach (ICD-10-PCS; principal; 2018-10-10 08:00)
PROC: 0D1B0Z4 Bypass Ileum to Cutaneous, Open Approach (ICD-10-PCS; 2018-10-15 14:00)
DX: Z43.3 Encounter for attention to colostomy (principal); J18.9 Pneumonia, unspecified organism; K65.8 Other peritonitis; D62 Acute posthemorrhagic anemia; T81.32XA Disruption of internal operation (surgical) wound, not elsewhere classified, initial encounter; K91.89 Other postprocedural complications and disorders of digestive system; K56.609 Unspecified intestinal obstruction, unspecified as to partial versus complete obstruction; R18.8 Other ascites; J90 Pleural effusion, not elsewhere classified; F17.213 Nicotine dependence, cigarettes, with withdrawal; J44.9 Chronic obstructive pulmonary disease, unspecified; F41.9 Anxiety disorder, unspecified; F17.200 Nicotine dependence, unspecified, uncomplicated; E87.6 Hypokalemia; E86.0 Dehydration

== ENCOUNTER 2018-11-06 16:40 | Inpatient (IN) | payer MEDICAID ==
[~2018-11-06] VITALS: Ht 180.3 cm; Wt 82.1 kg
[2018-11-06 17:34] LABS: ALBUMIN 4.3 g/dL (3.4-5.0); ANION GAP 18.6 mmol/L (8-16); BILIRUBIN - TOTAL 0.49 mg/dL (0.2-1.3); CALCIUM 10.6 mg/dL (8.5-10.1); CARBON DIOXIDE 21.9 mmol/L (21.0-32.0); CREATININE - SERUM 1.3 mg/dL (0.6-1.3); POTASSIUM - SERUM 4.5 mmol/L (3.5-5.1); PROTEIN - SERUM 10.2 g/dL (6.4-8.2)
[2018-11-06 17:40] LABS: BASOPHILS 0.6 % (0-2); EOSINOPHILS 1.6 % (0-7); HEMATOCRIT 38.9 % (42.0-54.0); IMMATURE GRANULOCYTES 0.8 % (0-5); LYMPHOCYTES 19.9 % (15-50); MCH 30.9 pg (26.0-34.0); MCHC 33.4 g/dL (31.0-37.0); MCV 92.4 fL (80.0-100.0); MEAN PLATELET VOLUME 9.3 fL (7.4-10.4); MONOCYTES 6.6 % (2-11); NEUTROPHILS 70.5 % (40-80); PLATELET COUNT 712 10x3/uL (130-400); RBC 4.21 10x6/uL (4.20-6.10); RDW 15.3 % (11.5-14.5); WBC 12.6 10x3/uL (4.8-10.8)
--- NOTE | 2018-11-06 17:45 | NUR ---
PT ARRIVED TO UNIT ALERT AND ORIENTED. PT STATES COLOSTOMY BAG FELL OFF IN DR. SUAZO'S OFFICE. PT WAS COVERED IN FECES AND WOUND DRESSING TO ABDOMEN SATURATED IN DRAINAGE. PT VOMITING AT THIS TIME. GOT PT UNDRESSED AND INTO BED. CLEANED PT UP REPLACED BAG REDRESSED WOUNDS. PT COMPLAING OF PAIN 12/26. STEPPED OUT OF ROOM AND PT'S BAG CAME OFF AGIAN. CLEANED PT UP REPLACED BAG AND REDRESSED WOUND. 20G IV STARTED IN RIGHT UPPER ARM. ZOFRAN GIVEN. JT NAVA STARTED CRITICAL CARE REGISTERED NURSE PUMP. PT COMPLAINS OF INDEGESTION COLLINS CALLED AND COUNTINUOS ZOFRAN DRIP ORDERED WITH DAILY PROTONIX. PT DENIES ANY PAIN OR FURTHER NEEDS.RESTING COMFORTABLY. VITALS STABLE. BED LOW CALL LIGHT WITHIN REACH. WILL CONTINUE TO MONITOR.
--- NOTE | 2018-11-06 19:50 | NUR ---
LYING IN BED. ALERT AND ORIENTED X4. HAS BEEN VOMITING. ILEOSTOMY NOTED TO RLQ WITH CLEAR GREEN FLUID NOTED AND EMPTIED 150 ML AT THIS TIME. REPORTS ABD PAIN 5. NEWS INTERN DILAUDID IN USE WITH NS @ 150 ML/HR INFUSING IN RT UPPER ARM WITHOUT DIFF. DRSG NOTED TO ABD INCISIONS X2. RESP EVEN AND NONLABORED. NEW ORDER NOTED FOR ZOFRAN DRIP. SR ELEVATED X2. CL IN REACH.
--- NOTE | 2018-11-06 21:15 | NUR ---
ILEOSTOMY LEAKING. NEW APPLIANCE APPLIED AT THIS TIME. PT DENIES PAIN AT THIS TIME. STATES HE IS FEELING BETTER. EMPTIED 200 ML OF GREEN FLUID FROM OSTOMY. CL IN REACH.
[2018-11-06 22:56] VITALS: BP 123/84; BMI 25.3
--- NOTE | 2018-11-07 00:05 | NUR ---
OSTOMY DRAINAGE HAS SLOWED DOWN NOW. PT DENIES PAIN. NO NAUSEA. STATES HE FEELS BETTER. CL IN REACH.
[2018-11-07 04:31] VITALS: BP 107/70
[2018-11-07 06:25] LABS: BASOPHILS 1.3 % (0-2); EOSINOPHILS 1.8 % (0-7); HEMATOCRIT 33.9 % (42.0-54.0); HEMOGLOBIN 11.3 g/dL (13.5-17.5); IMMATURE GRANULOCYTES 0.9 % (0-5); LYMPHOCYTES 28.3 % (15-50); MCHC 33.3 g/dL (31.0-37.0); MCV 92.9 fL (80.0-100.0); MEAN PLATELET VOLUME 9.1 fL (7.4-10.4); MONOCYTES 8.6 % (2-11); NEUTROPHILS 59.1 % (40-80); RBC 3.65 10x6/uL (4.20-6.10); RDW 15.4 % (11.5-14.5)
[2018-11-07 06:37] LABS: ALBUMIN 3.5 g/dL (3.4-5.0); ANION GAP 12.9 mmol/L (8-16); BILIRUBIN - TOTAL 0.5 mg/dL (0.2-1.3); CALCIUM 9.4 mg/dL (8.5-10.1); CARBON DIOXIDE 25.4 mmol/L (21.0-32.0); CREATININE - SERUM 1.6 mg/dL (0.6-1.3); POTASSIUM - SERUM 4.3 mmol/L (3.5-5.1); PROTEIN - SERUM 8.8 g/dL (6.4-8.2)
[2018-11-07 06:39] LABS: PLATELET COUNT 544 10x3/uL (130-400); WBC 7.8 10x3/uL (4.8-10.8)
--- NOTE | 2018-11-07 07:44 | NUR ---
PT RESTING IN BED. RR EVEN AND UNLABORED. O2-96% PT ON MARKET DEVELOPER FOR PAIN CONTROL. PT DENIES ANY PAIN OR NEEDS AT THIS TIME. BED LOW CALL LIGHT WITHIN REACH. WILL CONTINUE TO MONITOR.
[2018-11-07 08:19] LABS: AMYLASE - SERUM 112 U/L (25-115); LIPASE 505 U/L (73-393)
[2018-11-07 08:32] VITALS: BP 110/78
--- NOTE | 2018-11-07 12:44 | NUR ---
PT REFUSES SCD'S.
[2018-11-07 13:15] VITALS: BP 104/64
--- NOTE | 2018-11-07 14:42 | NUR ---
PT RESTING IN BED AT THIS TIME. RR EVEN AND UNLABORED. BED LOW CALL LIGHT WITHIN REACH. WILL CONTINUE TO MONITOR.
[2018-11-07 14:54] VITALS: Ht 180.3 cm; Wt 82.1 kg
--- NOTE | 2018-11-07 16:24 | NUR ---
EMPTIED PT COLOSTOMY
--- NOTE | 2018-11-07 16:30 | NUR ---
EMPTIED COLOSTOMY EMPTIED WITH CLUMPS IN STOOL. 300ML.
--- NOTE | 2018-11-07 16:56 | NUR ---
PT COMPLAING OF EXTREAME INDEGESTION AND PAIN. BOLUS OF 0.4MG GIVEN. PT ALERT AND ORIENTED. RR EVEN AND UNLABORED. WILL CONTINUE TO MONITOR.
[2018-11-07 17:33] VITALS: BP 108/61
--- NOTE | 2018-11-07 19:40 | NUR ---
SITTING UP IN BED. VOMITED 100 ML OF GREEN EMESIS. C/O HEARTBURN ALL DAY. ILEOSTOMY NOTED TO RLQ WITH GREEN SEMI LIQUID STOOL IN BAG. RESP EVEN AND NONLABORED. RATES PAIN 8-9 IN ABD. CORPORATION SECRETARY DILAUDID IN USE. ZOFRAN DRIP INFUSING WITH NS @ 150 ML/HR INF RT UPPER ARM WITHOUT DIFF. NOT WEARING SCDS. CL IN REACH. ALERT AND ORIENTED X4.
[2018-11-07 21:14] VITALS: BP 104/65
--- NOTE | 2018-11-07 21:25 | NUR ---
DILAUDID LOSS PREVENTION AUDITOR BOLUS GIVEN PER REQUEST FOR ABD PAIN. CL IN REACH.
[2018-11-08 01:27] VITALS: BP 99/69
[2018-11-08 05:05] VITALS: BP 112/70
[2018-11-08 06:45] LABS: BASOPHILS 0.6 % (0-2); EOSINOPHILS 4.4 % (0-7); HEMOGLOBIN 9.7 g/dL (13.5-17.5); IMMATURE GRANULOCYTES 0.6 % (0-5); LYMPHOCYTES 28.4 % (15-50); MCH 30.7 pg (26.0-34.0); MCHC 32.3 g/dL (31.0-37.0); MONOCYTES 9.3 % (2-11); NEUTROPHILS 56.7 % (40-80); RBC 3.16 10x6/uL (4.20-6.10); RDW 15.3 % (11.5-14.5); WBC 6.4 10x3/uL (4.8-10.8)
[2018-11-08 06:47] LABS: MCV 94.9 fL (80.0-100.0); PLATELET COUNT 433 10x3/uL (130-400)
[2018-11-08 07:04] LABS: ANION GAP 10.9 mmol/L (8-16); CALCIUM 8.7 mg/dL (8.5-10.1); CARBON DIOXIDE 25.5 mmol/L (21.0-32.0); CREATININE - SERUM 1.3 mg/dL (0.6-1.3); POTASSIUM - SERUM 4.4 mmol/L (3.5-5.1)
[2018-11-08 09:10] VITALS: BP 118/59
[2018-11-08 12:03] VITALS: BP 100/67
[2018-11-08 16:39] VITALS: BP 106/74
--- NOTE | 2018-11-08 18:53 | NUR ---
PT RESTING IN BED, ALERT AND ORIENTED. NO C/O PAIN. NO S/S OF ACUTE DISTRESS NOTED. PT DENIES ANY NEEDS AT THIS TIME. CALL LIGHT IN REACH. WILL CONTINUE TO MONITOR.
--- NOTE | 2018-11-08 19:35 | NUR ---
PT LAYING IN BED WITH LIGHTS OFF. IV SITE TO THE RT UPPER ARM WITH DRESSING INTACT. OSTOMY TO THE RLQ WITH DARK GREEN STOOL. STOMA PINK AND MOIST. CLEAN DRESSING TO THE ABDOMEN. DENIES NEEDING ANYTHING AT THIS TIME. CL IN REACH, BED IN THE LOWEST POSTION. CONTINUE WITH PLAN OF CARE.
[2018-11-08 20:33] VITALS: BP 95/56
[2018-11-09 00:47] VITALS: BP 131/84
[2018-11-09 05:10] VITALS: BP 116/72
[2018-11-09 05:58] LABS: BASOPHILS 0.8 % (0-2); EOSINOPHILS 11.4 % (0-7); HEMATOCRIT 28.1 % (42.0-54.0); HEMOGLOBIN 9.2 g/dL (13.5-17.5); IMMATURE GRANULOCYTES 0.3 % (0-5); LYMPHOCYTES 29.7 % (15-50); MCH 30.9 pg (26.0-34.0); MCHC 32.7 g/dL (31.0-37.0); MCV 94.3 fL (80.0-100.0); MONOCYTES 9.6 % (2-11); NEUTROPHILS 48.2 % (40-80); RBC 2.98 10x6/uL (4.20-6.10); RDW 15.5 % (11.5-14.5)
[2018-11-09 06:06] LABS: PLATELET COUNT 341 10x3/uL (130-400)
[2018-11-09 06:20] LABS: CALC OSMOLALITY 270 mosm/kg (275-300); CALCIUM 8.5 mg/dL (8.5-10.1); CARBON DIOXIDE 26.6 mmol/L (21.0-32.0); CHLORIDE - SERUM 104 mmol/L (98-107); CREATININE - SERUM 1.1 mg/dL (0.6-1.3); GLUCOSE 88 mg/dL (74-106); LIPASE 287 U/L (73-393); POTASSIUM - SERUM 4.2 mmol/L (3.5-5.1); SODIUM 137 mmol/L (136-145); eGFR NON AFRICAN AMERICAN 75 mL/min (90-120)
[2018-11-09 06:25] LABS: AMYLASE - SERUM 74 U/L (25-115); UREA NITROGEN 6 mg/dL (7-18)
--- NOTE | 2018-11-09 07:35 | NUR ---
PT RESTING IN BED, ALERT AND ORIENTED. NO C/O PAIN. VETERINARY SURGEON DILAUDID MANAGING PAIN AT THIS TIME. NO S/S OF ACUTE DISTRESS NOTED. IV TO LEFT ARM, SITE PATENT WITHOUT REDNESS OR SWELLING. PT DENIES ANY NEEDS AT THIS TIME. CALL LIGHT IN REACH. WILL CONTINUE TO MONITOR.
[2018-11-09 08:20] VITALS: BP 101/62; BP 124/76
[2018-11-09 13:08] VITALS: BP 106/69
--- NOTE | 2018-11-09 15:08 | NUR ---
I have reviewed this patient and I concur with the Shift Assessment completed by the Licensed Practical Nurse today this shift.
[2018-11-09 16:33] VITALS: BP 94/49
--- NOTE | 2018-11-09 19:11 | NUR ---
PT RESTING IN BED, ALERT AND ORIENTED. NO C/O PAIN. NO S/S OF ACUTE DISTRESS NOTED. PT DENIES ANY NEEDS. CALL LIGHT IN REACH. WILL CONTINUE TO MONITOR.
--- NOTE | 2018-11-09 20:00 | NUR ---
ALERT RESTING IN BED, ILLEOSTOMY BAG INTACT WITH SM AMOUNT OF LIQUID STOOL, DRESSING TO ABD D/I, SEE SHIFT ASSESSMENT, CALL LIGHT IN REACH
[2018-11-09 21:48] VITALS: BP 99/62
[2018-11-10 01:27] VITALS: BP 89/60
[2018-11-10 06:07] VITALS: BP 116/58
--- NOTE | 2018-11-10 08:28 | NUR ---
RESTING IN BED WITH EYES CLOSED AROUSED BY VERBAL STIMULI. NO S/S OF ACUTE DISTRESS. CL IN PLACE.
[2018-11-10 09:24] VITALS: BP 110/71
--- NOTE | 2018-11-10 12:14 | NUR ---
Nutrition follow-up: Diet: Regular as tolerated Pt with ileostomy Labs reviewed Wt: 180# Pt with poor appetite at this time due to N/V. May need to consider nutrition support. Recommend ProcalAmine PPN @ 75 ml/hr for nutrition support until pt with better po intake. RDN following.
--- NOTE | 2018-11-10 12:31 | MORECARE ---
CASE MANAGEMENT DISCHARGE SUMMARY PATIENT: BEBETO LINN UNIT: [id number] ADM DATE: 11/07/18 AGE: 53 : 69 SEX: M ROOM/BED: D.2233 AUTHOR: PARAMJIT FLORES PHYSICIAN: REFERRING PHYSICIAN: MANNY SUAZO MD DATE OF SERVICE: 11/10/18 Discharge Plan Patient Name: BEBETO LINN Facility: [facility]:[place] : 1965 Planned Disposition: Home Hlth Svc w Plan Readm Anticipated Discharge Date: 11/10/18 Discharge Date: Expected LOS: 3 Initial Reviewer: [email or web address] Initial Review Date: 11/10/2018 Generated: 11/10/18 1:31 pm Patient Name: BEBETO LINN Page [phone] at 1231 All edits/amendments must be made on the electronic document DICTATION DATE: 11/10/18 1231 NEWS PRODUCTION ASSISTANT: JAYSON 11/10/18 1231 RPT#: [id number] DC DATE: STATUS: ADM IN [facility] [address] [place] [address] END OF REPORT
--- NOTE | 2018-11-10 12:40 | MORECARE ---
CASE MANAGEMENT DISCHARGE SUMMARY PATIENT: BEBETO LINN UNIT: [id number] ADM DATE: 11/07/18 AGE: 53 : 69 SEX: M ROOM/BED: D.2233 AUTHOR: PARAMJIT FLORES PHYSICIAN: REFERRING PHYSICIAN: MANNY SUAZO MD DATE OF SERVICE: 11/10/18 Discharge Plan Patient Name: BEBETO LINN Facility: [facility]:[place] : 1965 Planned Disposition: Home Hlth Svc w Plan Readm Anticipated Discharge Date: 11/10/18 Discharge Date: Expected LOS: 3 Initial Reviewer: [email or web address] Initial Review Date: 11/10/2018 Generated: 11/10/18 1:40 pm Comments DCP- Discharge Planning Updated by [email or web address]: Astrid Bullard on 11/10/18 11:[address] Patient Name: BEBETO LINN Admission Status: Elective Accout number: [id number] Admission Date: 11-07-2018 : 1965 Admission Diagnosis:DEHYDRATION Attending: MANNY SUAZO Current LOS: 3 Anticipated DC Date: 11-10-2018 Planned Disposition: Home Hlth Svc w Plan Readm Primary Insurance: MEDICAID [place] Discharge Planning Comments: CM met with patient to complete initial dc planning assessment. CM educated patient on the CM role and verbal consent given by patient to complete assessment. Patient lives at home alone. At discharge patient plans to return and feels this is a safe discharge. CM discussed availability of home health, rehab services, and medical equipment. Patient is current with [facility] and would like to continue on discharge. KAYLEN for [facility] signed. I called Merry and she states they will see him tomorrow. CM will continue to follow and will assist as needed with dc plans/needs. Test Administrator: Astrid Bullard DCPIA - Discharge Planning Initial Assessment Updated by [email or web address]: Astrid Bullard on 11/10/18 12:33 pm * Is the patient Alert and Oriented? Yes * How many steps to enter\exit or inside your home? 8/0 * PCP Dr. Aleman * Pharmacy [facility] on [facility] * Preadmission Environment Home Alone * ADLs Independent * Equipment Bedside Commode Other Oxygen Walker * Other Equipment Portable oxygen * List name and contact numbers for known caregivers / representatives who currently or will assist patient after discharge: Ross Lynn - [phone] * Verbal permission to speak to the caregivers and representatives has been obtained from the patient. Yes * Community resources currently utilized Home Health * Please name any agencies selected above. [facility] * Additional services required to return to the preadmission environment? No * Can the patient safely return to the preadmission environment? Yes * Has this patient been hospitalized within the prior 30 days at any hospital? Yes Last DP export: 11/10/18 11:31 a Patient Name: BEBETO LINN Page 52949 at 1240 All edits/amendments must be made on the electronic document DICTATION DATE: 11/10/181239 BLOWING WEASAND: JAYSON 11/10/18 1240 RPT#: [id number] DC DATE: STATUS: ADM IN [facility] [address] [place] [address] END OF REPORT
--- NOTE | 2018-11-10 12:48 | MORECARE ---
CASE MANAGEMENT DISCHARGE SUMMARY PATIENT: BEBETO LINN UNIT: [id number] ADM DATE: 11/07/18 AGE: 53 : 69 SEX: M ROOM/BED: D.2233 AUTHOR: PARAMJIT FLORES PHYSICIAN: REFERRING PHYSICIAN: MANNY SUAZO MD DATE OF SERVICE: 11/10/18 Discharge Plan Patient Name: BEBETO LINN Facility: [facility]:[place] : 1965 Planned Disposition: Home Hlth Svc w Plan Readm Anticipated Discharge Date: 11/10/18 Discharge Date: Expected LOS: 3 Initial Reviewer: [email or web address] Initial Review Date: 11/10/2018 Generated: 11/10/18 1:48 pm Comments DCP- Discharge Planning Updated by [email or web address]: Astrid Bullard on 11/10/18 11:[address] Patient Name: BEBETO LINN Admission Status: Elective Accout number: [id number] Admission Date: 11-07-2018 : 1965 Admission Diagnosis:DEHYDRATION Attending: MANNY SUAZO Current LOS: 3 Anticipated DC Date: 11-10-2018 Planned Disposition: Home Hlth Svc w Plan Readm Primary Insurance: MEDICAID [place] Discharge Planning Comments: CM met with patient to complete initial dc planning assessment. CM educated patient on the CM role and verbal consent given by patient to complete assessment. Patient lives at home alone. At discharge patient plans to return and feels this is a safe discharge. CM discussed availability of home health, rehab services, and medical equipment. Patient is current with [facility] and would like to continue on discharge. KAYLEN for [facility] signed. I called Merry and she states they will see him tomorrow. CM will continue to follow and will assist as needed with dc plans/needs. Clinical Laboratory Director: Astrid Bullard DCPIA - Discharge Planning Initial Assessment Updated by [email or web address]: Astrid Bullard on 11/10/18 12:33 pm * Is the patient Alert and Oriented? Yes * How many steps to enter\exit or inside your home? 8/0 * PCP Dr. Aleman * Pharmacy [facility] on [facility] * Preadmission Environment Home Alone * ADLs Independent * Equipment Bedside Commode Other Oxygen Walker * Other Equipment Portable oxygen * List name and contact numbers for known caregivers / representatives who currently or will assist patient after discharge: Ross Lynn - [phone] * Verbal permission to speak to the caregivers and representatives has been obtained from the patient. Yes * Community resources currently utilized Home Health * Please name any agencies selected above. [facility] * Additional services required to return to the preadmission environment? No * Can the patient safely return to the preadmission environment? Yes * Has this patient been hospitalized within the prior 30 days at any hospital? Yes External Providers External Provider: [employer] Next Contact Date: Service Request Date: Service Type: Resolution: Reviewer: Comments: Last DP export: 11/10/18 11:40 a Patient Name: BEBETO LINN Page [phone] at 1248 All edits/amendments must be made on the electronic document DICTATION DATE: 11/10/181246 PERMIT TECHNICIAN: JAYSON 11/10/18 1247 RPT#: [id number] DC DATE: STATUS: ADM IN [facility] [address] [place] [address] END OF REPORT
[2018-11-10] MEDS ORDERED: PERCOCET 10-321 EAC1 PO (13:04)
--- NOTE | 2018-11-10 14:19 | NUR ---
DC IV WITH TIP INTACT. DC INSTRUCTIONS DONE WITH PT. PT AMBULATED OFF FLOOR WITH FRIEND AT SIDE. BELONGINGS CARRIED IN HAND. NO S/S OF ACUTE DISTRESS.
--- NOTE | 2018-11-10 17:03 | MORECARE ---
CASE MANAGEMENT DISCHARGE SUMMARY PATIENT: BEBETO LINN UNIT: [id number] ADM DATE: 11/07/18 AGE: 53 : 69 SEX: M ROOM/BED: D.2233 AUTHOR: SANDRADOC PHYSICIAN: REFERRING PHYSICIAN: MANNY SUAZO MD DATE OF SERVICE: 11/10/18 Discharge Plan Patient Name: BEBETO LINN Facility: [facility]:[place] : 1965 Planned Disposition: Home Hlth Svc w Plan Readm Anticipated Discharge Date: 11/10/18 Discharge Date: 11/10/2018 Expected LOS: 3 Initial Reviewer: [email or web address] Initial Review Date: 11/10/2018 Generated: 11/10/18 6:02 pm Comments DCP- Discharge Planning Updated by [email or web address]: Astrid Bullard on 11/10/18 11:[address] Patient Name: BEBETO LINN Admission Status: Elective Accout number: [id number] Admission Date: 11-07-2018 : 1965 Admission Diagnosis:DEHYDRATION Attending: MANNY SUAZO Current LOS: 3 Anticipated DC Date: 11-10-2018 Planned Disposition: Home Hlth Svc w Plan Readm Primary Insurance: MEDICAID [place] Discharge Planning Comments: CM met with patient to complete initial dc planning assessment. CM educated patient on the CM role and verbal consent given by patient to complete assessment. Patient lives at home alone. At discharge patient plans to return and feels this is a safe discharge. CM discussed availability of home health, rehab services, and medical equipment. Patient is current with [facility] and would like to continue on discharge. KAYLEN for [facility] signed. I called Merry and she states they will see him tomorrow. CM will continue to follow and will assist as needed with dc plans/needs. Automotive Le[employer] Sales Representative: Astrid Bullard DCPIA - Discharge Planning Initial Assessment Updated by [email or web address]: Astrid Bullard on 11/10/18 12:33 pm * Is the patient Alert and Oriented? Yes * How many steps to enter\exit or inside your home? 8/0 * PCP Dr. Aleman * Pharmacy [facility] on [facility] * Preadmission Environment Home Alone * ADLs Independent * Equipment Bedside Commode Other Oxygen Walker * Other Equipment Portable oxygen * List name and contact numbers for known caregivers / representatives who currently or will assist patient after discharge: Ross Lynn - [phone] * Verbal permission to speak to the caregivers and representatives has been obtained from the patient. Yes * Community resources currently utilized Home Health * Please name any agencies selected above. [facility] * Additional services required to return to the preadmission environment? No * Can the patient safely return to the preadmission environment? Yes * Has this patient been hospitalized within the prior 30 days at any hospital? Yes Coverage Notice Reviewer: [email or web address] Chadd Bullard Notice Issued Date-Time: 11/10/2018 12:48 Notice Type: Patient Choice Letter Notice Delivered To: Patient Relationship to Patient: Self Policy Value Calculator Name: Delivery Method: HAND - Hand Delivered Colleen Days: Prior Verbal Notification: Recipient Understood Notice: Yes Recipient Signature: Yes Med Rec Note Co-signed by Attending: Coverage Notice Comment: KAYLEN for [facility] Last DP export: 11/10/18 11:48 a Patient Name: BEBETO LINN Page [phone] at 1703 All edits/amendments must be made on the electronic document DICTATION DATE: 11/10/181701 IT RISK ANALYST: JAYSON 11/10/181701 RPT#: [id number] DC DATE:11/10/18 STATUS: DIS IN [facility] [address] [place] [address] END OF REPORT
--- NOTE | 2018-11-23 11:36 | DS ---
PATIENT:BEBETO LINN :[birth year] MEDICAL RECORD: [id number] DISCHARGE SUMMARY ADMISSION DATE: 11/07/18 DISCHARGE DATE: 11/10/18 DATE OF ADMISSION: 11/06/2018. DATE OF DISCHARGE: 11/10/2018. ADMISSION DIAGNOSES: 1. Dehydration. 2. Acute pancreatitis. 3. Chronic obstructive pulmonary disease. 4. Anxiety disorder. DISCHARGE DIAGNOSES: 1. Dehydration. 2. Acute pancreatitis. 3. Chronic obstructive pulmonary disease. 4. Anxiety disorder. PROCEDURE: None. CONSULTATIONS: None. REPORT OF HOSPITALIZATION: The patient was admitted to the hospital from the clinic with acute pancreatitis and dehydration. The patient has been having high amount of watery output from his ileostomy, which I believe lead to his dehydration. He was given gentle fluid resuscitation and bowel rest initially. His amylase was always normal. His lipase came down over the next few days until it finally was normal prior to discharge. At the day of discharge, he was tolerating a diet with his main complaint of being bilateral flank pain due to the fact he had multiple surgeries and continued to have pain and upset stomach. We CT'd the abdomen and it showed no acute intra-abdominal findings. The patient's ileostomy output was improved by starting him on Imodium which thickened up the enteric contents. On the day of discharge, he was doing well, ambulating, was ready to go home. DISCHARGE INSTRUCTIONS: Return to clinic or call if any questions or concerns. ACTIVITIES: No heavy lifting or straining for 6 weeks postoperatively. FOLLOWUP: In clinic with me in a couple of weeks. DISCHARGE MEDICATIONS: Resume home meds. TRANSINT:[id number] Voice Confirmation ID: [id number] DOCUMENT ID: [id number] DISCHARGE SUMMARY REPORT [id number] BEBETO LINN MANNY SUAZO MD at 1136 CC: [id number] DICTATION DATE: 11/10/18 1220 APPLICATION SECURITY SPECIALIST: 11/11/18 0137 DIS IN 11/10/18 [place] [id number] [place] [address]
== END 2018-11-10 14:28 | disposition home health service (06) | DRG 640 ==
LOC: D.MS 16:40 → OBSVTIME 16:44 → D.MS 11-07 11:56
PROVIDERS: ADMIT Surgery; ATTEND Surgery
DX: E86.0 Dehydration (principal); K85.90 Acute pancreatitis without necrosis or infection, unspecified; J44.9 Chronic obstructive pulmonary disease, unspecified

== ENCOUNTER 2018-11-29 18:32 | Emergency (ER) | payer MEDICAID ==
[~2018-11-29] VITALS: Ht 180.3 cm; Wt 72.7 kg
[2018-11-29 18:48] VITALS: Ht 180.3 cm; Wt 72.7 kg
[2018-11-29] MEDS ORDERED: [UNRECOGNIZED DRUG - OTHER] (18:52)
[2018-11-29 19:21] LABS: BASOPHILS 0.4 % (0-2); EOSINOPHILS 1.7 % (0-7); HEMATOCRIT 38.4 % (42.0-54.0); HEMOGLOBIN 13.3 g/dL (13.5-17.5); IMMATURE GRANULOCYTES 0.2 % (0-5); LYMPHOCYTES 25.5 % (15-50); MCHC 34.6 g/dL (31.0-37.0); MCV 92.5 fL (80.0-100.0); MEAN PLATELET VOLUME 9.2 fL (7.4-10.4); MONOCYTES 8.8 % (2-11); NEUTROPHILS 63.4 % (40-80); RBC 4.15 10x6/uL (4.20-6.10); RDW 15.2 % (11.5-14.5); WBC 9.9 10x3/uL (4.8-10.8)
[2018-11-29 19:27] LABS: PLATELET COUNT 270 10x3/uL (130-400)
[2018-11-29 19:37] LABS: ALBUMIN 3.7 g/dL (3.4-5.0); ALKALINE PHOSPHATASE 156 U/L (46-116); ALT (SGPT) 32 U/L (10-68); BILIRUBIN - TOTAL 0.36 mg/dL (0.2-1.3); CALC OSMOLALITY 272 mosm/kg (275-300); CALCIUM 9.5 mg/dL (8.5-10.1); CARBON DIOXIDE 21.6 mmol/L (21.0-32.0); CHLORIDE - SERUM 101 mmol/L (98-107); CREATININE - SERUM 1.2 mg/dL (0.6-1.3); GLUCOSE 103 mg/dL (74-106); POTASSIUM - SERUM 3.7 mmol/L (3.5-5.1); PROTEIN - SERUM 8.6 g/dL (6.4-8.2); SODIUM 136 mmol/L (136-145); UREA NITROGEN 14 mg/dL (7-18); eGFR NON AFRICAN AMERICAN 68 mL/min (90-120)
[2018-11-29 19:40] LABS: LIPASE 577 U/L (73-393)
[2018-11-29 19:41] LABS: TROPONIN-I < 0.017 ng/mL (0.000-0.060)
[2018-11-29 20:57] LABS: UDS - AMPHET NEGATIVE QUAL (NEGATIVE); UDS - BARB NEGATIVE QUAL (NEGATIVE); UDS - BENZO NEGATIVE QUAL (NEGATIVE); UDS - COCAINE NEGATIVE QUAL (NEGATIVE); UDS - OPIATE POSITIVE QUAL (NEGATIVE); UDS - PCP NEGATIVE QUAL (NEGATIVE); UDS - THC NEGATIVE QUAL (NEGATIVE)
[2018-11-29 20:57] LABS: APPEARANCE CLEAR (CLEAR); BILIRUBIN NEGATIVE (NEGATIVE); COLOR YELLOW (YELLOW); GLUCOSE NEGATIVE (NEGATIVE); KETONE NEGATIVE (NEGATIVE); NITRITE NEGATIVE (NEGATIVE); PROTEIN NEGATIVE (NEGATIVE); SPECIFIC GRAVITY 1.015 (1.005-1.020); UROBILINOGEN NORMAL (NORMAL)
[2018-11-29 21:59] VITALS: BP 126/78
== END 2018-11-29 21:59 | disposition home or self-care (01) ==
LOC: D.ER 18:32
PROVIDERS: Emergency Medicine; Family Medicine
DX: R10.9 Unspecified abdominal pain (principal); Z93.3 Colostomy status; J44.9 Chronic obstructive pulmonary disease, unspecified

== ENCOUNTER 2018-12-08 07:24 | Inpatient (IN) | payer MEDICAID ==
[~2018-12-08] VITALS: Ht 180.3 cm; Wt 73.0 kg
[~2018-12-08 07:24] MED LIST changes: +[UNRECOGNIZED DRUG - OTHER]
[2018-12-12] VITALS (10 sets, daily range): BP systolic 94–163; BP diastolic 60–100; BMI 22.5
[2018-12-12 08:24] LABS: ANION GAP 14.7 mmol/L (8-16); CALCIUM 10.1 mg/dL (8.5-10.1); CREATININE - SERUM 1.2 mg/dL (0.6-1.3); POTASSIUM - SERUM 3.7 mmol/L (3.5-5.1)
[2018-12-12] MEDS ORDERED: ADVAIR 250/501 DISK INH (08:37)
[2018-12-12] MEDS ORDERED: DILAUDID2 MG PO (08:38)
--- NOTE | 2018-12-12 09:08 | NUR ---
GAVE PT SUICIDE PREVENTION RESOURCES AND REVIEWED WITH HIM. VERBALIZED UNDERSTANDING.
[2018-12-12 09:17] LABS: BASOPHILS 0.3 % (0-2); EOSINOPHILS 2.1 % (0-7); HEMATOCRIT 41.3 % (42.0-54.0); HEMOGLOBIN 14.1 g/dL (13.5-17.5); IMMATURE GRANULOCYTES 0.3 % (0-5); LYMPHOCYTES 24.7 % (15-50); MCH 31.8 pg (26.0-34.0); MCHC 34.1 g/dL (31.0-37.0); MEAN PLATELET VOLUME 9.3 fL (7.4-10.4); MONOCYTES 7.4 % (2-11); NEUTROPHILS 65.2 % (40-80); RBC 4.44 10x6/uL (4.20-6.10); RDW 15.3 % (11.5-14.5); WBC 7.7 10x3/uL (4.8-10.8)
[2018-12-12 09:18] LABS: PLATELET COUNT 379 10x3/uL (130-400)
--- NOTE | 2018-12-12 13:07 | NUR ---
REPORT TAKEN FROM Allyn PARKER RN. PATIENT CARE ASSUMED AT THIS TIME.
--- NOTE | 2018-12-12 14:00 | NUR ---
PATIENT TO ROOM AT THIS TIME. IV INTACT. VS STABLE. BSCDS PLUGGED IN AND TURNED ON. PATIENT STATING HE HAS PAIN AT THIS TIME. EXPLAINED DAY HABILITATION SUPERVISOR PUMP. VERBALIZED UNDERSTANDING. WILL CONTINUE TO MONITOR. CALL LIGHT WITHIN REACH.
--- NOTE | 2018-12-12 18:20 | NUR ---
PATIENT AMBULATED IN HALLWAY WITH NO PROBLEMS AT THIS TIME ASSISTED BY RN. WALKED ABOUT 20 FEET AND BACK TO ROOM. TRIED TO SIT IN CHAIR AND DECIDED TO GET BACK IN BED BECAUSE UNCOMFORTALBE. INCISION TO ABDOMEN WITH DRESSING INTACT. NO COMPLAINTS OR SIGNS OF DISTRESS. BSCDS ON AND WORKING. CALL LIGHT WITHIN REACH.
--- NOTE | 2018-12-12 20:00 | NUR ---
ASSESSMENT PER FLOOWSHEET. IV PATENT LEFT HAND NS AT 125CC'S/HR. BUTT TRIMMER OF DILAUDID IN USE WITH SETTINGS AT 0.2MG Q10 MIN W/4MG Q4H L/O. SITE CLEAR. DRSG TO RT LQ ABDOMEN INCISION C/D/I. SCD'S ON. PT NPO EXCEPT FOR ICE.
--- NOTE | 2018-12-12 20:30 | NUR ---
UP WITH HELP VOIDED.ASSISTED BACK TO BED.
--- NOTE | 2018-12-12 22:00 | NUR ---
C/O PAIN INCISIONAL AREA. REQUESTING A BOLUS. 0.2MG BOLUS GIVEN PER BACTERIOLOGIST FOOD FOR PAIN CONTROL.
--- NOTE | 2018-12-13 00:03 | NUR ---
EYES CLOSED RESPIRATIONS WITH EASE AND UNLABORED.
[2018-12-13 03:56] VITALS: BP 100/69
[2018-12-13 06:52] LABS: BASOPHILS 0.1 % (0-2); EOSINOPHILS 0.1 % (0-7); HEMATOCRIT 33.4 % (42.0-54.0); IMMATURE GRANULOCYTES 0.3 % (0-5); LYMPHOCYTES 13.3 % (15-50); MCH 31.1 pg (26.0-34.0); MCHC 32.9 g/dL (31.0-37.0); MCV 94.4 fL (80.0-100.0); MEAN PLATELET VOLUME 9.1 fL (7.4-10.4); MONOCYTES 7.4 % (2-11); NEUTROPHILS 78.8 % (40-80); RDW 14.9 % (11.5-14.5); WBC 9.4 10x3/uL (4.8-10.8)
[2018-12-13 07:12] LABS: PLATELET COUNT 266 10x3/uL (130-400); RBC 3.54 10x6/uL (4.20-6.10)
[2018-12-13 07:21] LABS: CALCIUM 8.8 mg/dL (8.5-10.1); CARBON DIOXIDE 27.1 mmol/L (21.0-32.0); CHLORIDE - SERUM 102 mmol/L (98-107); CREATININE - SERUM 1.1 mg/dL (0.6-1.3); GLUCOSE 94 mg/dL (74-106); SODIUM 137 mmol/L (136-145); eGFR NON AFRICAN AMERICAN 75 mL/min (90-120)
[2018-12-13 07:24] LABS: CALC OSMOLALITY 273 mosm/kg (275-300); POTASSIUM - SERUM 4.6 mmol/L (3.5-5.1); UREA NITROGEN 12 mg/dL (7-18)
--- NOTE | 2018-12-13 07:33 | NUR ---
GAVE 0.4MG BOLUS OF DILAUDID GIVEN AT THIS TIME. PT WANTING THIS NURSE TO CHANGE HIS DRESSING. INFORMED PT THAT WE WOULD HAVE TO WAIT UNTIL DOCTOR ROUNDS SO THAT HE CAN LOOK AT HIS DRESSING BEFORE IT IS CHANGED. PT VERBALIZED UNDERSTANDING. PT A/O X4, RESP EVEN AND NONLABORED ON RA. SCDS ON BILAT, ALSO PROVIDED PT WITH ICE CHIPS. PT DENIES ANY OTHER NEEDS AT THIS TIME. CALL LIGHT IN REACH, NAD NOTED, WILL CONTINUE PLAN OF CARE.
[2018-12-13 08:28] VITALS: BP 93/68
--- NOTE | 2018-12-13 11:35 | NUR ---
EXECUTIVE ASSOCIATE SYRINGE CHANGED AT THIS TIME. ALSO GAVE 0.4MG BOLUS FOR PAIN LEVEL OF 8/10. PT DENIES ANY OTHER NEEDS AT THIS TIME. CALL LIGHT IN REACH, NOTED,W ILL CONTINUE TO MONITOR.
[2018-12-13 12:02] VITALS: BP 116/69
--- NOTE | 2018-12-13 15:47 | NUR ---
0.4MG BOLUS OF DILAUDID GIVEN AT THIS TIME. FOR PAIN LEVEL OF 10/10.
[2018-12-13 16:24] VITALS: BP 124/75
--- NOTE | 2018-12-13 16:47 | NUR ---
TALKED TO DR. SUAZO AND INFORMED HIM THAT PT IS C/O OF PAIN 10/10 EVEN AFTER USING MACHINE OPERATOR REPLANTER AND BOLUS WAS GIVEN, PT SITE ALSO WARM TO TOUCH AND PT IS RUNNING A LOW GRADE FEVER. DR. SUAZO STATED THAT HE WOULD OUT IN ORDERS FOR TORADOL AND TO MAKE SURE PT IS USING HIS INCENTIVE SPIROMETER. INSTRUCTED PT TO USE INCENTIVE SPIROMETER AND INFORMED HIM THAT SOON ORDER FOR TORADOL IS PUT IN I WILL GIVE HIM SOME.
--- NOTE | 2018-12-13 19:35 | NUR ---
LYING IN BED. ALERT AND ORIENTED X4. RATES PAIN IN ABD 8. JUST RECEIVED TORADOL. DSRG TO ABD INTACT WITH OLD DRAINAGE MARKED AND CIRCLED. ENCOURAGED AMBULATION. NS @ 50 ML/HR INFUSING IN LT HAND WITHOUT DIFF. NOT WEARING O2. RESP EVEN AND NONLABORED. SCDS IN USE BILAT. SR ELEVATED X2. CL IN REACH.
[2018-12-13 20:00] VITALS: BP 106/67
--- NOTE | 2018-12-13 23:30 | NUR ---
MEDICATED WITH PERCOCET FOR C/O PAIN IN ABD. STATES, "I'M GOING TO TALK TO DR SUAZO TOMORROW ABOUT MY PAIN. THE DILAUDID WASNT WORKING AND I HURT ALL THE TIME."
--- NOTE | 2018-12-14 00:45 | NUR ---
STATES THE PERCOCET DOESNT HELP HIS PAIN EITHER. STATES HE IS GOING TO TALK TO DR SUAZO ABOUT IT.
[2018-12-14 04:00] VITALS: BP 108/60
--- NOTE | 2018-12-14 05:02 | NUR ---
UP TO BR. STATES HE THOUGHT HE HAD TO HAVE A BM BUT PASSED ALOT OF GAS. STATES HE FEELS SOME BETTER BUT RATES PAIN IN ABD 8. CL IN REACH.
--- NOTE | 2018-12-14 05:51 | NUR ---
MEDICATED FOR C/O PAIN IN ABD RATING 9 WITH PERCOCET ORDERED. CL IN REACH.
--- NOTE | 2018-12-14 07:19 | OP ---
PATIENT NAME: BEBETO LINN MEDICAL RECORD: [id number] :69 LOCATION:D.MS [id number] ADMISSION DATE:12/12/18 SURGEON: MANNY SUAZO MD DATE OF OPERATION: 12/12/2018 PREOPERATIVE DIAGNOSES: 1. Ileostomy in situ. 2. History of recurrent diverticulitis. POSTOPERATIVE DIAGNOSES: 1. Ileostomy in situ. 2. History of recurrent diverticulitis. PROCEDURE: Ileostomy reversal. SURGEON: Manny Suazo MD REPORT OF PROCEDURE: The patient's abdomen was prepped and draped in sterile fashion. Using electrocautery, we cored around the patient's right lower quadrant ileostomy. As we came around this, we were able to eviscerate this ileostomy and remaining small bowel through the tissues. We eventually freed it up completely from its intra-abdominal attachments. Once this was done, I could see this was actually a [id number] ileostomy, which had been stapled and brooked. We ended up just firing a 55 blue load HELEN stapler down through the ileostomy limbs to extend the length of it and then fired a 30 blue load TA stapler across the openings to close up the distal aspect of the ileostomy. The most distal aspect of the ileostomy was sent off for permanent specimen. Any bleeding from the mesentery was then treated with electrocautery or with 3-0 silk ties. We were able to oversew the staple lines using Lemberted 3-0 silks and placed the ostomy back into the abdominal cavity. The fascia was then closed transversely with interrupted 0 Prolenes. We irrigated out the wound with normal saline and assured there was no sign of any bleeding. We then closed the subcutaneous tissues in a pursestring fashion with a 3-0 Vicryl and the skin was closed in a pursestring fashion with a 2-0 Vicryl. A dressing was applied to the wound. COMPLICATIONS: None. CONDITION: Stable. ANESTHESIA: General endotracheal. BLOOD LOSS: 30 mL. TRANSINT:[id number] Voice Confirmation ID: [id number] DOCUMENT ID: [id number] MANNY SUAZO MD at 0719 CC: [id number] DICTATION DATE: 12/12/18 1244 SCOW HAND: 12/12/18 1259 ADM IN [facility] [address] [place] [address]
--- NOTE | 2018-12-14 07:56 | NUR ---
ALERT AND ORIENTED. LUNGS CLEAR BILATERALLY IN ALL LOMELI. HEART SOUNDS S1 AND S2 HEARD IN ALL LOMELI. BOWEL SOUNDS ACTIVE X 4. STATES HAS HAD A LOT OF GAS BUT NO BM. DRSG IN PLACE TO ABD C/D/I. DENIES NEEDS AT THIS TIME. IV TO LEFT HAND PATENT WITHOUT REDNESS. BED LOW. CALL IRVIN AND PERSONAL ITEMS IN REACH. WILL CONTINUE TO MONITOR.
[2018-12-14 09:39] VITALS: BP 119/73
[2018-12-14 11:56] VITALS: BP 124/72
--- NOTE | 2018-12-14 12:55 | MORECARE ---
CASE MANAGEMENT DISCHARGE SUMMARY PATIENT: BEBETO LINN UNIT: [id number] ADM DATE: 12/12/18 AGE: 53 : 69 SEX: M ROOM/BED: D.2223 AUTHOR: SANDRADOC PHYSICIAN: REFERRING PHYSICIAN: MANNY SUAZO MD DATE OF SERVICE: 12/14/18 Discharge Plan Patient Name: BEBETO LINN Facility: [facility]:[place] : 1965 Planned Disposition: Home Anticipated Discharge Date: Discharge Date: Expected LOS: Initial Reviewer: [email or web address] Initial Review Date: 12/14/2018 Generated: 12/14/18 1:54 pm Comments DCP- Discharge Planning Updated by [email or web address]: Astrid Bullard on 12/14/18 11:[address] Patient Name: BEBETO LINN Admission Status: Urgent Accout number: [id number] Admission Date: 12-12-2018 : 1965 Admission Diagnosis: Attending: MANNY SUAZO Current LOS: 2 Anticipated DC Date: Planned Disposition: Home Primary Insurance: MEDICAID [place] Discharge Planning Comments: CM met with patient to complete initial dc planning assessment. CM educated patient on the CM role and verbal consent given by patient to complete assessment. Patient lives at home alone. At discharge patient plans to return and feels this is a safe discharge. CM discussed availability of home health, rehab services, and medical equipment. Patient denied known discharge needs at this time. States he has had [facility] in the past, but does not feel like he will need them at discharge this time. States his friend (Moe) will take him home on discharge. CM will continue to follow and will assist as needed with dc plans/needs. Correction Officer Head: Astrid Bullard DCPIA - Discharge Planning Initial Assessment Updated by [id number]: Astrid Bullard on 12/14/18 12:51 pm * Is the patient Alert and Oriented? Yes * How many steps to enter\exit or inside your home? 8/0 * PCP Dr. Aleman * Pharmacy [facility] * Preadmission Environment Home Alone * ADLs Independent * Equipment Bedside Commode Other Oxygen Walker * List name and contact numbers for known caregivers / representatives who currently or will assist patient after discharge: Ross Lynn - friend - [phone] Moe Ng - friend -friend - [phone] * Verbal permission to speak to the caregivers and representatives has been obtained from the patient. Yes * Community resources currently utilized None * Additional services required to return to the preadmission environment? No * Can the patient safely return to the preadmission environment? Yes * Has this patient been hospitalized within the prior 30 days at any hospital? No Patient Name: BEBETO LINN Page [phone] at 1255 All edits/amendments must be made on the electronic document DICTATION DATE: 12/14/18 1254 TEXTILE MACHINE MAINTENANCE MECHANIC: JAYSON 12/14/18 1254 RPT#: [id number] DC DATE: STATUS: ADM IN [facility] [address] [place] [address] END OF REPORT
--- NOTE | 2018-12-14 13:19 | NUR ---
RESTING IN BED. PRN ATIVAN GIVEN PER REQUEST FOR ANXIETY. DENIES FURTHER NEEDS AT THIS TIME. WILL CONTINUE TO MONITOR.
--- NOTE | 2018-12-14 15:26 | NUR ---
PATIENT SLEEPING. WILL CONTINUE TO MONITOR.
[2018-12-14 15:45] VITALS: BP 110/68
--- NOTE | 2018-12-14 18:23 | NUR ---
RESTING IN BED. DENIES NEEDS. BED LOW. CALL IRVIN AND PERSONAL ITEMS IN REACH. WILL CONTINUE TO MONITOR.
--- NOTE | 2018-12-14 19:00 | NUR ---
BEDSIDE REPORT RECEIVED AND CARE OF PT ASSUMED. PT LYING IN LOW CORONEL'S POSITION WATCHING TV. DRESSING ON ABDOMEN INTACT WITH BLOODY DRAINAGE OOZING THROUGH. PT REPORTS PASSING GAS. IV TO LEFT ARM PATENT WITH 1/2 NS INFUSING AT 30 ML/HR. WILL MONITOR FOR NEEDS.
[2018-12-14 20:00] VITALS: BP 112/56
--- NOTE | 2018-12-14 20:45 | NUR ---
GAVE DILAUDID 2 MG PO PER REQUEST, PER PRN ORDER. WILL MONITOR FOR EFFECTIVENESS.
--- NOTE | 2018-12-14 22:05 | NUR ---
GAVE ATIVAN 0.5 MG IVP FOR SLEEP, AND ZOFRAN IVP FOR C/O NAUSEA. WILL MONITOR FOR EFFECTIVENESS.
--- NOTE | 2018-12-14 22:10 | NUR ---
PT HAD COUGHING EPISODE AND REQUESTED FOR ME TO CHECK WOUND. REMOVED OLD DRESSING AND PACKING THAT WAS SOAKED WITH BLOODY / SEROUS DRAINAGE. REPLACED WET TO DRY PACKING, COVERED WITH 4X4'S, AND COVERED WITH ABD PAD. SUTURES INTACT.
[2018-12-15] VITALS: BP 99/59
[2018-12-15 04:00] VITALS: BP 90/54
--- NOTE | 2018-12-15 05:15 | NUR ---
PT SHOWERED AND ALL LINEN AND GOWN CHANGED.
[2018-12-15 07:50] VITALS: BP 104/68
--- NOTE | 2018-12-15 08:16 | NUR ---
ALERT AND ORIENTED. LUNGS CLEAR BILATERALLY IN ALL LOMELI. HEART SOUNDS S1 AND S2 HEARD IN ALL LOMELI. BOWEL SOUNDS ACTIVE X 4. STATES PASSING GAS BUT NO BM. DRSG TO RLQ C/D/I. IV TO LEFT HAND PATENT WITHOUT REDNESS. DENIES NEEDS. BED LOW. CALL IRVIN AND PERSONAL ITEMS IN REACH. WILL CONTINUE TO MONITOR.
--- NOTE | 2018-12-15 10:00 | NUR ---
RESTING IN BED. DENIES PAIN. DENIES NEEDS. WILL CONTINUE TO MONITOR.
--- NOTE | 2018-12-15 12:23 | NUR ---
DISCHARGE EDUCATION PROVIDED BOTH WRITTEN AND VERBAL. VERBALIZED UNDERSTANDING. DENIES FURTHER QUESTIONS. STATES DOES NOT NEED WOUND CARE DRSGS. STATES HAS DRSG CHANGE SUPPLIES AT HOME FROM PREVIOUS VISIT. EDUCATION PROVIDED ON WOUND CARE. VERBALIZED UNDERSTANDING. STATES NO RIDE HOME UNTIL 1600. IV LEFT IN PLACE UNTIL DISCHARGE.
--- NOTE | 2018-12-15 12:48 | MORECARE ---
CASE MANAGEMENT DISCHARGE SUMMARY PATIENT: BEBETO LINN UNIT: [id number] ADM DATE: 12/12/18 AGE: 53 : 69 SEX: M ROOM/BED: D.2223 AUTHOR: PARAMJIT FLORES PHYSICIAN: REFERRING PHYSICIAN: MANNY SUAZO MD DATE OF SERVICE: 12/15/18 Discharge Plan Patient Name: BEBETO LINN Facility: [facility]:[place] : 1965 Planned Disposition: Home Anticipated Discharge Date: Discharge Date: Expected LOS: Initial Reviewer: [email or web address] Initial Review Date: 12/14/2018 Generated: 12/15/18 1:48 pm Comments DCP- Discharge Planning Updated by [id number]: Astrid Bullard on 12/15/18 11:[address] Patient Name: BEBETO LINN Encounter No: [id number] : 1965 Primary Insurance: MEDICAID [place] Anticipated DC Date: Planned Disposition: Home External Planned Provider: : DCP follow-up note: Patient and family in agreement with discharge plan. No changes to plan. Declines need for HHS. Case management will follow and assist as needed. Astrid Bullard DCP- Discharge Planning Updated by [email or web address]: Astrid Bullard on 12/14/18 11:[address] Patient Name: BEBETO LINN Admission Status: Urgent Accout number: [id number] Admission Date: 12-12-2018 : 1965 Admission Diagnosis: Attending: MANNY SUAZO Current LOS: 2 Anticipated DC Date: Planned Disposition: Home Primary Insurance: MEDICAID [place] Discharge Planning Comments: CM met with patient to complete initial dc planning assessment. CM educated patient on the CM role and verbal consent given by patient to complete assessment. Patient lives at home alone. At discharge patient plans to return and feels this is a safe discharge. CM discussed availability of home health, rehab services, and medical equipment. Patient denied known discharge needs at this time. States he has had [facility] in the past, but does not feel like he will need them at discharge this time. States his friend (Moe) will take him home on discharge. CM will continue to follow and will assist as needed with dc plans/needs. Clinical Sciences Professor: Astrid Bullard DCPIA - Discharge Planning Initial Assessment Updated by [email or web address]: Astrid Bullard on 12/14/18 12:51 pm * Is the patient Alert and Oriented? Yes * How many steps to enter\exit or inside your home? 8/0 * PCP Dr. Aleman * Pharmacy [facility] on [facility] * Preadmission Environment Home Alone * ADLs Independent * Equipment Bedside Commode Other Oxygen Walker * List name and contact numbers for known caregivers / representatives who currently or will assist patient after discharge: Ross Lynn - friend - [phone] Moe Ng - friend -friend - [phone] * Verbal permission to speak to the caregivers and representatives has been obtained from the patient. Yes * Community resources currently utilized None * Additional services required to return to the preadmission environment? No * Can the patient safely return to the preadmission environment? Yes * Has this patient been hospitalized within the prior 30 days at any hospital? No Last DP export: 12/14/18 11:55 a Patient Name: BEBETO LINN Page [phone] at 1248 All edits/amendments must be made on the electronic document DICTATION DATE: 12/15/181247 HAND CUTTER: JAYSON 12/15/188 RPT#: [id number] DC DATE: STATUS: ADM IN [facility] [address] [place] [address] END OF REPORT
[2018-12-15 13:16] VITALS: Ht 180.3 cm; Wt 73.0 kg
--- NOTE | 2018-12-15 13:39 | NUR ---
PATIENT SLEEPING. WILL CONTINUE TO MONITOR.
--- NOTE | 2018-12-15 15:26 | NUR ---
IV REMOVED FROM LEFT HAND WITH TIP INTACT. PATIENT DISCHARGED HOME WITH FRIEND WITH ALL BELONGINGS. REFUSED WHEELCHAIR DOWN TO VEHICLE.
--- NOTE | 2018-12-16 12:09 | MORECARE ---
CASE MANAGEMENT DISCHARGE SUMMARY PATIENT: BEEBTO LINN UNIT: [id number] ADM DATE: 12/12/18 AGE: 53 : [birth year] SEX: M ROOM/BED: D.2223 AUTHOR: PARAMJIT FLORES PHYSICIAN: REFERRING PHYSICIAN: MANNY SUAZO MD DATE OF SERVICE: 12/16/18 Discharge Plan Patient Name: BEBETO LINN Facility: [facility]:[place] : 1965 Planned Disposition: Home Anticipated Discharge Date: Discharge Date: 12/15/2018 Expected LOS: Initial Reviewer: [email or web address] Initial Review Date: 12/14/2018 Generated: 12/16/18 1:09 pm Comments DCP- Discharge Planning Updated by [email or web address]: Astrid Bullard on 12/15/18 11:[address] Patient Name: BEBETO LINN Encounter No: [id number] : 1965 Primary Insurance: MEDICAID [place] Anticipated DC Date: Planned Disposition: Home External Planned Provider: : DCP follow-up note: Patient and family in agreement with discharge plan. No changes to plan. Declines need for HHS. Case management will follow and assist as needed. Astrid Bullard DCP- Discharge Planning Updated by [email or web address]: Astrid Bullard on 12/14/18 11:[address] Patient Name: BEBETO LINN Admission Status: Urgent Accout number: [id number] Admission Date: 12-12-2018 : 1965 Admission Diagnosis: Attending: MANNY SUAZO Current LOS: 2 Anticipated DC Date: Planned Disposition: Home Primary Insurance: MEDICAID [place] Discharge Planning Comments: CM met with patient to complete initial dc planning assessment. CM educated patient on the CM role and verbal consent given by patient to complete assessment. Patient lives at home alone. At discharge patient plans to return and feels this is a safe discharge. CM discussed availability of home health, rehab services, and medical equipment. Patient denied known discharge needs at this time. States he has had [facility] in the past, but does not feel like he will need them at discharge this time. States his friend (Moe) will take him home on discharge. CM will continue to follow and will assist as needed with dc plans/needs. Elevator Mechanic: Astrid Bullard DCPIA - Discharge Planning Initial Assessment Updated by [email or web address]: Astrid Ngjanie on 12/14/18 12:51 pm * Is the patient Alert and Oriented? Yes * How many steps to enter\exit or inside your home? 0 * PCP Dr. Aleman * Pharmacy [facility] * Preadmission Environment Home Alone * ADLs Independent * Equipment Bedside Commode Other Oxygen Walker * List name and contact numbers for known caregivers / representatives who currently or will assist patient after discharge: Ross Lynn - friend - [phone] Moe Ng - friend -friend - [phone] * Verbal permission to speak to the caregivers and representatives has been obtained from the patient. Yes * Community resources currently utilized None * Additional services required to return to the preadmission environment? No * Can the patient safely return to the preadmission environment? Yes * Has this patient been hospitalized within the prior 30 days at any hospital? No Last DP export: 12/15/18 11:48 a Patient Name: BEBETO LINN Page [id number] at 1209 All edits/amendments must be made on the electronic document DICTATION DATE: 12/16/181208 [employer]: [employer] 12/16/18 120 [facility]#: [id number] DC DATE:12/15/18 STATUS: DIS IN [facility] [address] [place] [address] END OF REPORT
--- NOTE | 2019-01-12 11:37 | DS ---
PATIENT:BEBETO LINN :[birth year] MEDICAL RECORD: [id number] DISCHARGE SUMMARY ADMISSION DATE: 12/12/18 DISCHARGE DATE: 12/15/18 ADMISSION DIAGNOSES: 1. In situ ileostomy. 2. History of recurrent diverticulitis. DISCHARGE DIAGNOSES: 1. In situ ileostomy. 2. History of recurrent diverticulitis. PROCEDURE: Ileostomy takedown on 12/12/2018. REPORT OF HOSPITALIZATION: The patient was admitted to the hospital after a successful ileostomy takedown. The patient was maintained in the hospital until he had some return of bowel function and was initially placed on clear liquid diet. As he tolerated his diet, he was having bowel function and eventually was able to be advanced to regular diet. The patient had a large amount of abdominal pain. The patient was often requesting a higher pain meds and felt the Dilaudid was the medicine that worked best for him. Eventually, we were able to commit the patient to go home. His ostomy site appeared to be healing nicely with no signs of infection. He was tolerating a diet with minimal nausea and he was having normal bowel function. DISCHARGE INSTRUCTIONS: He will return to clinic or call with any questions or concerns, fevers, chills, nausea, vomiting or worsening abdominal pain. ACTIVITIES: No heavy lifting or straining for 6 weeks postoperatively. FOLLOWUP: In clinic with me in 2-3 weeks. DISCHARGE MEDICATIONS: Advair Diskus and Dilaudid 2 mg p.r.n. TRANSINT:[id number] Voice Confirmation ID: [id number] DOCUMENT ID: [id number] MANNY SUAZO MD at 1137 CC: [id number] DICTATION DATE: 01/04/19 1322 TIME BROKER: 01/05/19 0135 DIS IN 12/15/18 [place] [id number]
== END 2018-12-15 15:28 | disposition home or self-care (01) | DRG 331 ==
LOC: D.SDCHOLD 12-12 07:54 → D.MS 12-12 07:54 → D.SDCHOLD 12-12 10:30 → D.MS 12-12 13:35
PROVIDERS: ADMIT Surgery; ATTEND Surgery
PROC: 0DBB0ZZ Excision of Ileum, Open Approach (ICD-10-PCS; principal; 2018-12-12 10:30)
DX: Z43.2 Encounter for attention to ileostomy (principal)